=== PATIENT | female | born 1990 | race Caucasian/White ===

== ENCOUNTER 2017-02-10 11:28 | Outpatient (CLI) | payer MEDICAID ==
[~2017-02-10] VITALS: Ht 162.6 cm; Wt 68.0 kg
[~2017-02-10 11:28] MED LIST: AMOXIL500 M1 PO; AMPICILLIN500 MG PO; BACTRIM DS 8001 TAB PO; Compazine10 MG PO; DICLEGIS1 TCP PO; MACROBID 100MG100 M1 PO; MOTRIN 400MG.400 MG PO; NITROFURANTOIN100 M6 PO; NOMEDS *; NOMEDS XX; PERCOCET 5/3251 EACH PO; PRENATAL PLUS1 TA1 PO; REGLAN10 M1 PO; ZITHROMAX 250M250 MG PO; Zofran4 MG PO
[2017-02-10 11:53] VITALS: BP 117/71
== END 2017-02-10 12:20 | disposition home or self-care (01) ==
LOC: OBOUT 11:28 → OB 11:29 → OBOUT 12:20
DX: O36.8120 Decreased fetal movements, second trimester, not applicable or unspecified (principal); Z3A.24 24 weeks gestation of pregnancy

== ENCOUNTER 2017-04-24 19:10 | Outpatient (CLI) | payer MEDICAID ==
[~2017-04-24] VITALS: Ht 160 cm; Wt 69.9 kg
[2017-04-24 19:28] VITALS: BP 121/80
[2017-04-24 20:00] LABS: URINE BILIRUBIN - DIPSTICK NEGATIVE (NEG); URINE BLOOD NEGATIVE (NEG)
--- NOTE | 2017-04-24 23:14 | ACUTE CARE PROGRESS NOTE (QUA) ---
OB Progress note Subjective: 26 yo @ 34 4/7 by LMP = 6 week ultrasound in triage with complaint of vag pressure and questinable LOF. Denies vb. + irregular ctx. Had ultrasound 04/21 here which showed EFW 9% and SHERRIE 5.0; she was sent to [place] same day and had MFM ultrasound which showed EFW 23% (but AC 5%) and SHERRIE 7.8 (low normal); UA doppler 3.02-1 (normal) Recommendation was made for twice weekly testing with NST (and weekly SHERRIE) and repeat US for growth in 2 weeks. She did not receive IV hydration but was told to "drink more water and rest when you can." she does not work but is home with a 2 year old so she has not been resting; she cannot quantify the amount of fluid intake since Thursday. Objective Vital signs: Vital Signs Date Time Temp Pulse Resp B/P Pulse O2 O2 Flow FiO2 Ox Delivery Rate 04/24 1928 98.0 110 18 121/80 Contractions: infrequent (q15+ minutes) Cervical dilation: 1 (fingertip) Effaced: 50% Station: -2 Membranes are: Intact (fern/pool/amnisure negative ) monitoring? Yes Type: External Heart Rate: 150 (normal variability, reactive) Assessment Problem List: 1. contractions Additional information: No evidence of labor or rupture of membranes. reassurring status. Small for gestational age fetus 23% with AC 5% and reassurring testing (BPP 10/10, normal UA dopplers). Has f/u ultrasound for growth scheduled in 2 weeks and having NST 2x/week but no SHERRIE scheduled during interim before growth ultrasound. She will call primary OB office on thursday to set up SHERRIE for this week and was instructed to drink approximately 3L water daily. labor, ROM precautions given and kick counts advised. Plan Plan: Discharge home with plan as outlined above at [id number]
== END 2017-04-24 23:10 | disposition home or self-care (01) ==
LOC: OB 19:10 → OBOUT 19:10 → OB 19:11 → OBOUT 23:10
PROVIDERS: Obstetrics & Gynecology
DX: O26.93 Pregnancy related conditions, unspecified, third trimester (principal); Z3A.34 34 weeks gestation of pregnancy; R10.30 Lower abdominal pain, unspecified; M54.5 Low back pain

== ENCOUNTER 2017-04-29 10:49 | Observation (INO) | payer MEDICAID ==
[~2017-04-29] VITALS: Ht 162.6 cm; Wt 69.9 kg
--- OUTSIDE RECORDS SUMMARY | 2017-04-29 10:58 | External Medical Summary Rpt | CCD ---
Author Author , MICHAEL Organization MICHAEL Address Unknown Phone [email or web address] Care Team Providers Care Hide Spreader Name Role Phone A Claudia SHINE MD PSC, Pau Unavailable Unavailable Claudia SHINE MD PSC ALFARIS MOH, ALFARIS Unavailable Unavailable [facility], Unavailable Unavailable [facility] GREGORY, GREGORY Unavailable Unavailable GREGORY ALL, GREGORY ALL Unavailable Unavailable [facility] Unavailable Unavailable [facility], [facility] KOURTNEY OCONNELL Unavailable Unavailable SAENZ, SAENZ Unavailable Unavailable SAENZ DWAYNE, SAENZ Unavailable Unavailable DWAYNE SAENZ DWAYNE, SAENZ Unavailable Unavailable DWAYNE PERFECTO SAENZ J, Unavailable Unavailable HUMBERTO SAENZK J ANDREW SANTANA, Unavailable Unavailable GILBERTO SEPULVEDA Unavailable Unavailable GILBERTO MAXIMO, Unavailable Unavailable GILBERTO MAXIMO LATISHA MACIAS, Unavailable Unavailable LATISHA MACIAS [facility] Unavailable Unavailable [facility] HARISH FOSS, Unavailable Unavailable HARISH FOSS RONDAL E, Unavailable Unavailable YULY GONZALEZ HARPEL Unavailable Unavailable [facility] Unavailable Unavailable [facility], [facility] Unavailable Unavailable [facility], [facility] Unavailable Unavailable INC, [facility], Unavailable Unavailable [facility] Unavailable Unavailable [facility] Unavailable Unavailable [facility], [facility] JOHN ELIAS, Unavailable Unavailable JOHN ELIAS, Unavailable Unavailable FRANCOIS ALFRED, Unavailable Unavailable LAYA BUENO, Unavailable Unavailable LAYA LANDRY HARRY, Unavailable Unavailable ASHLEY LOJA [facility], Unavailable Unavailable [facility] Unavailable Un[facility], Un[facility] Unavailable Unavailable LAB, [facility] PICKLESIMER JR, Unavailable Unavailable PICKPERNELLIMER JR PICKPERNELLIMER JR KIMMY, Unavailable Unavailable PICKPERNELLIMER JR KIMMY RENUSCH GERSON, RENUSCH Unavailable Unavailable GERSON SADEK MOH, SADEK MOH Unavailable Unavailable MELENDEZ DON, Unavailable Unavailable MELENDEZ DON [facility], Unavailable Unavailable [facility], Unavailable Unavailable [facility] Unavailable Unavailable [facility], [facility] GISELLE SHE, Unavailable Unavailable GISELLE SHE TAMAREN, SHERRY, Unavailable Unavailable TAMAREN, SHERRY [facility] Unavailable Unavailable #[id number], [facility] # Unavailable Unavailable [id number], [facility] # [id number] [facility] # Unavailable Unavailable [id number], [facility] # [id number] [facility] Unavailable Unavailable DEPT [facility], [facility] DE[facility] Unavailable Unavailable SHINE A, SHINE A Unavailable Unavailable SHINE, A C, SHINE, Unavailable Unavailable A C Purpose Continuity of Care Document - 07-22-2007 through 2016 Problems Code Diagnosis DOS Provider Status [id number] ABNORMAL 03-13-2017 [facility] GLUCOSE PHYSICIANS COMPLICATIN GROUP G O2693 03-11-2017 [facility] CONDITIONS INC UNS 3RD TRIMESTER Z3A28 28 WEEKS 03-11-2017 [facility] OF INC Z3480 ENC 03-10-2017 [facility] SUPERVISION PHYSICIANS OTH NORMAL GROUP PREG UNS TRIMESTER [id number] DECREASED 02-10-2017 [facility] MOVEMENTS INC SECOND TRI NA/UNS Z3A24 24 WEEKS 02-10-2017 [facility] OF INC Z36 ENCOUNTER 01-09-2017 [place] [facility] ASS SCREENING OF MOTHER Z3A19 19 WEEKS 01-09-2017 [facility] MEDICAL OF IMAGING ASS O2692 12-28-2016 [facility] CONDITIONS INC UNS 2ND TRIMESTER O4702 FALSE LABOR 12-28-2016 [facility] BEFORE 37 PHYSICIANS, CMPLETE PLLC WEEKS GEST 2ND TRI O4703 FALSE LABOR 12-28-2016 [facility] BEFORE 37 PHYSICIANS CMPLETE GROUP WEEKS GEST 3RD TRI R1084 GENERALIZED 12-28-2016 [facility]OMINAL [facility] PAIN INC R197 DIARRHEA 12-28-2016 [facility] UNSPECIFIED [facility] INC Z3A17 17 WEEKS 12-28-2016 [facility]ATION [facility] OF INC Z3A18 18 WEEKS 12-28-2016 [facility] GESTATION PHYSICIANS, OF [facility] Z113 ENCOUNTER 10-29-2016 [facility] SCREEN [facility] INFECTIONS SEXL MODE TRANSMISSN Z3481 ENC 10-29-2016 [facility] SUPERVISION LLC OT NORMAL 1 TRIMESTER H80401 UTERINE 10-10-2016 [facility] SIZE-DATE [facility] DISCREPANCY INC FIRST TRIMESTER Z3491 ENC 10-10-2016 [facility] MEDICAL NORMAL IMAGING ASS UNS 1 TRIMESTER Z3A01 LESS THAN 8 10-10-2016 [facility] MEDICAL GESTATION IMAGING ASS OF Z3201 ENCOUNTER 10-02-2016 [facility] FOR PHYSICIANS GROUP TEST RESULT POSITIVE J0100 ACUTE 06-30-2016 [facility] MAXILLARY PHYSICIAN SINUSITIS GROUP UNSPECIFIED R1110 VOMITING 03-04-2016 [facility] UNSPECIFIED PHYSICIANS, [facility] E01415 PAIN IN 02-19-2016 [facility] RIGHT LEG PHYSICIANS, [facility] R2241 LOCALIZED 02-19-2016 [facility]WELLING [facility] MASS & LUMP INC RIGHT LOWER LIMB J029 ACUTE 01-10-2016 [facility] PHARYNGITIS PHYSICIANS GROUP UNSPECIFIED R05 COUGH 01-10-2016 [facility] PHYSICIANS GROUP V242 ROUTINE 11-15-2014 [facility] FOLLOW-UP V2549 SURVEILLANC 10-18-2014 [facility] E OT PREV PHYSICIANS PRSC GROUP CONTRACEPT METHOD 650 NORMAL 09-29-2014 [facility] DELIVERY PHYSICIANS GROUP 02875 FORCEPS/EXT 09-29-2014 [facility] RACTOR DEL [facility] W/O INC INDICATION- DELIVERED V270 OUTCOME OF 09-29-2014 [facility] DELIVERY [facility] SINGLE INC LIVEBORN V220 SUPERVISION 09-26-2014 [facility] OF NORMAL PHYSICIANS FIRST GROUP 3671 MYOPIA 09-09-[address] [place] [address] OTHER 09-06-2014 [facility] THREATENED [facility] LABOR, INC ANTEPARTUM 71842 POOR 09-05-2014 [facility] GROWTH MGMT PHYSICIANS MOTH GROUP ANTPRTM COND/COMP 93274 THREATENED 08-17-2014 [facility] PREMATURE PHYSICIANS LABOR GROUP ANTEPARTUM 97346 OTHER 07-28-2014 [facility] SPECIFED [facility] COMPLICATIO INC N ANTEPARTUM 44653 THREATENED 07-17-2014 [facility] PRE[facility]URE [facility] LABOR INC UNSPEC EPIS CARE 15928 ABNORMAL 07-10-2014 [facility] MATERNAL PHYSICIANS GLUCOSE GROUP TOLERANCE ANTEPARTUM 4659 ACUTE URIS 06-07-2014 [facility] UNSPECIFIED CARE SITE 47910 FEVER 06-07-2014 [facility] UNSPECIFIED [facility] CARE 02828 NAUSEA 06-07-2014 [facility] CARE V283 ENCOUNTER 06-01-2014 [facility] ROUTINE PHYSICIANS SCREEN GROUP MALFORMATIO N ULTRASONIC 48403 MIGRAINE 05-04-2014 [facility] W/AURA W/O N EMERGENCY INTRACT W/O PHYS STATUS MIGRNOSUS 88397 MIGRAINE 05-04-2014 [place] UNSP W/O MEDICAL INTRACT W/O IMAGING ASS STATUS MIGRAINOSUS 3688 OTHER 05-04-2014 [place] SPECIFIED MEDICAL VISUAL IMAGING ASS DISTURBANCE S 7804 DIZZINESS 05-04-2014 [place] AND MEDICAL GIDDINESS IMAGING ASS 29071 OTHER 05-04-2014 [place] MALAISE AND MEDICAL FATIGUE IMAGING ASS V222 05-04-2014 [facility] INCIDENTAL INC 77947 UNSPEC 04-08-2014 [place] HEMORRHAGE MEDICAL EARLY IMAGING ASS ANTEPARTUM 26643 ASYMPTOMATI 04-08-2014 [facility] C N EMERGENCY BACTERIURIA PHYS ANTEPARTUM 77844 SPOTTING 04-08-2014 [facility] COMP N EMERGENCY PHYS ANTEPARTUM COND/COMP 7907 BACTEREMIA 04-08-2014 [facility] INC V221 SUPERVISION 04-04-2014 [facility] OF OTHER LLC NORMAL V7242 04-04-2014 SAENZ DWAYNE EXAMINATION OR TEST POSITIVE RESULT V745 SCREENING 04-04-2014 [facility] EXAMINATION LLC FOR VENEREAL DISEASE 89429 THREATENED 03-30-2014 [facility] , N EMERGENCY ANTEPARTUM PHYS 99677 OT CURRENT 03-30-2014 [place] MAT CONDS MEDICAL CLASSIFIABL IMAGING ASS E ELSW ANTPRTM 79077 ABDOMINAL 03-30-2014 [place] PAIN, MEDICAL UNSPECIFIED IMAGING ASS SITE 29382 MILD 02-20-2014 [facility] HYPEREMESIS N EMERGENCY GRAVIDARUM PHYS ANTEPARTUM V2689 OTHER 02-09-2014 [facility] SPECIFIED HEALTH PROCREATIVE MANAGEMENT 1121 CANDIDIASIS 11-06-2010 A Claudia SHINE OF [facility] AND [facility] V741 SCREENING 09-23-2010 [facility] EXAM[facility] PULMONARY TUBERCULOSI S V202 ROUTINE 09-13-2010 A Claudia SHINE INFANT OR [facility] CHILD HEALTH CHECK 9409 UNSPECIFIED 02-13-2010 A Claudia SHINE BURN OF [facility] EYE AND ADNEXA V255 INSERTION 07-30-2009 [facility] IMPLANTABLE CLIN[facility] OF SUBDERMAL HAM CONTRACEPTI [facility] VE 632 MISSED 07-04-2009 [facility] 6238 OTHER 05-23-2009 [facility] SPECIFIED EMERGENCY NONINFLAMMA SERVICES [facility] DISORDER VAGINA 5990 URINARY 05-12-2009 [facility] TRACT [facility] INFECTION INC SITE NOT SPECIFIED 22933 INFECTIONS 05-11-2009 [place] OF EMERGENCY GENITOURINA SERVICES RY TRACT ASSOCIATES ANTEPARTUM 7061 OTHER ACNE 03-09-2009 [facility] V703 OTH GENERAL 09-07-2008 [facility] EXAMINATION ADMIN PURPOSES 4612 ACUTE 04-29-2008 [employer] ETHMOIDAL [employer] SINUSITIS [employer] 4619 ACUTE 04-29-2008 [facility] SINUSITIS, [facility] H[facility] UNSPECIFIED INC 7840 HEADACHE 04-29-2008 [facility] 0570 ERYTHEMA 09-20-2007 [facility] INFECTIOSUM [facility] 29863 ESOPHAGEAL 09-20-2007 [facility] REFLUX [facility] 16815 CHRONIC 08-30-2007 JADA TONSILLITIS JOHN Pineda 39672 HYPERTROPHY 08-30-2007 PATHOLOGY & OF TONSILS CYTOLOGY ALONE LAB V7284 UNSPECIFIED 08-27-2007 [facility] VE EXAMINATION 7821 RASH AND 08-22-2007 [facility] OTHER [facility] NONSPECIFIC SKIN ERUPTION 89140 CHEST PAIN 08-22-2007 [facility] UNSPECIFIED [facility] 4779 ALLERGIC 08-10-2007 JAAD RHINITIS JOHN Pineda CAUSE UNSPECIFIED 463 ACUTE 07-23-2007 ELIAS, TONSILLITIS JOHN Pineda 96301 OTHER 07-23-2007 [facility] DISEASE OF CLIN[facility] PHARYNX OR NASOPHARYNX 7856 ENLARGEMENT 07-23-2007 ELIAS, OF LYMPH JOHN Pineda NODES 0340 STREPTOCOCC 07-22-2007 [facility] AL SORE [facility] THROAT G43.109 MIGRAINE WITH AURA, NOT INTRACTABLE , W/O STATUS MIGRAINOSUS N92.0 EXCESSIVE AND FREQUENT MENSTRUATIO N WITH REGULAR CYCLE O20.0 THREATENED O21.0 MILD HYPEREMESIS GRAVIDARUM O41.03X0 Oligohydram nios, third trimester, not applicable or unspecified O47.9 FALSE LABOR, UNSPECIFIED O99.89 OT DISEASES AND CONDITIONS COMPL PREG/CHLDBR TH P05.00 light for gestational age, unspecified weight R11.10 VOMITING, UNSPECIFIED R22.9 LOCALIZED SWELLING, MASS AND LUMP, UNSPECIFIED Z33.1 STATE, INCIDENTAL Z34.90 ENCNTR FOR SUPRVSN OF NORMAL , UNSP, UNSP TRIMESTER Medications Na ND Rx Da Fi Fi Am Da Di Ph RX Ph St me C No te ll ll ou ys ag ar # ys at rm s nt no ma ic us Or Da si cy ia de te s n re d [place] 59 06 07 6. 5 00 WA Ac IT 76 -2 -2 00 00 L- ti HR 23 0- 1- 0 07 MA ve OM 06 20 20 49 RT YC 00 17 17 45 IN 1 18 PH AR 25 MA 0 CY MG #5 TA 91 BL ET TN 68 04 05 14 7 00 WA Ac OM 38 -1 -1 .0 00 L- ti ET 20 8- 9- 00 07 MA ve ESTRADA 04 20 20 48 RT ZI 00 17 17 30 NE 1 85 PH AR 12 MA .5 CY MG #5 91 TA BL ET AM 00 01 02 20 10 00 WA Ac OX 09 -0 -0 .0 00 L- ti IC 33 2- 3- 00 07 MA ve IL 10 20 20 46 RT LI 90 17 17 20 N 5 81 PH 50 AR 0 MA MG CY CA #5 PS 91 UL E AM 00 05 05 0 21 7 WA 70 ME Ac OX 78 -2 -2 .0 L- 79 AD ti IC 12 5- 5- 00 MA 89 E ve IL 61 20 20 RT 0 DM LI 30 11 11 D N 5 PH JE 50 AR WE 0 MA LL MG CY # CA PS 10 UL 04 E 93 ME 00 05 05 0 21 6 WA 70 ME Ac TH 60 -2 -2 .0 L- 79 AD ti YL 34 5- 5- 00 MA 88 E ve TN 59 20 20 RT 8 DM ED 31 11 11 D NI 5 PH JE SO AR WE LO MA LL NE CY 4 # MG 10 04 DO 93 SE PK TN 68 05 05 0 15 3 WA 70 ME Ac OM 38 -2 -2 .0 L- 79 AD ti ET 20 5- 5- 00 MA 88 E ve ESTRADA 04 20 20 RT 7 DM ZI 10 11 11 D NE 1 PH JE AR WE 25 MA LL CY MG # TA 10 BL 04 ET 93 00 05 05 0 20 3 WA 44 ME Ac 40 -2 -2 .0 L- 87 AD ti 60 5- 5- 00 MA 97 E ve 35 20 20 RT 1 DM 80 11 11 D 1 PH JE AR WE MA LL CY # 10 04 93 00 05 05 0 20 3 WA 44 ME Ac 40 -2 -2 .0 L- 87 AD ti 60 5- 5- 00 MA 97 E ve 35 20 20 RT 1 JE 80 11 11 WE 1 PH LL AR R MA CY # 10 04 93 66 04 05 1 12 6 WA 70 MO Ac 99 -2 -0 0. L- 69 SE ti 20 0- 7- 00 MA 75 S ve 22 [address] 00 10 10 EP 4 PH HE AR N MA A CY # 10 05 91 00 01 01 00 20 3 WA 44 CL Ac 40 -0 -2 .0 L- 82 AR ti 60 6- 8- 00 MA 64 KE ve 35 20 20 RT 3 70 10 10 DE 5 PH RE AR K MA J CY #5 91 AM 00 11 12 00 40 10 WA 70 GA Ac PI 78 -1 -0 .0 L- 45 IN ti CI 12 4- 3- 00 MA 79 EY ve LL 14 20 20 RT 9 IN 50 09 09 MO 1 PH CH 50 AR AE 0 MA L MG CY S CA #5 PS 91 UL E 45 09 09 00 [address] Ac 80 -1 -2 .0 L- 36 ON ti 20 1- 4- 00 MA 42 E ve 18 20 20 RT 8 DI 20 09 09 XI 2 PH E AR D MA CY #5 91 66 09 09 00 [address] Ac 99 -1 -2 .0 L- 36 ON ti 20 1- 4- 00 MA 42 E ve 23 20 20 RT 6 DI 56 09 09 XI 0 PH E AR D MA CY #5 91 TN 00 11 11 00 15 4 SO 29 GO Ac OC 78 -0 -2 .0 PE 72 BL ti HL 15 4- 0- 00 RS 71 E ve OR 02 20 20 RO PE 10 08 08 FA ND RA 1 MO AL ZI LY E NE DR 10 UG MG TA B AM 00 11 11 00 30 10 SO 29 GO Ac OX 09 -0 -2 .0 PE 72 BL ti IC 33 4- 0- 00 RS 70 E ve IL 10 20 20 RO LI 90 08 08 FA ND N 5 MO AL 50 LY E [address] UG CA PS UL E 49 03 04 00 60 30 SO 27 No Ac 88 -2 -1 .0 PE 98 t ti 40 4- 0- 00 RS 11 Av ve 54 20 20 ai 40 08 08 FA la 5 MO bl LY e DR UG AM 00 03 04 00 10 10 SO 27 No Ac OX 09 -0 -0 0. PE 77 t ti IC 34 3- 7- 00 RS 50 Av ve IL 15 20 20 0 ai LI 57 08 08 FA la N 3 MO bl 25 LY e [address] /5 UG ML MCKINLEY SP AC 00 03 04 00 20 5 SO 27 No Ac ET 12 -0 -0 0. PE 77 t ti AM 10 3- 7- 00 RS 43 Av ve IN 50 20 20 0 ai OP 41 08 08 FA la -C 6 MO bl OD LY e EI NE DR UG 12 0- 12 MG /5 AM 00 01 03 00 20 10 SO 27 No Ac OX 09 -2 -2 0. PE 38 t ti IC 34 4- 5- 00 RS 90 Av ve IL 15 20 20 0 ai LI 57 08 08 FA la N 3 MO bl 25 LY e [address] /5 UG ML MCKINLEY SP Results Labs Lab Lab Date Result Refere Interp Status Commen Order Detail nces retati t Range on Cervicovaginal discharge rapid detection (04-24-2017 20:50) Cervico NEGATIV complet vaginal 017 E FOR ed 20:50 RUPTURE dischar ge NEGATIV rapid E FOR detecti RUPTURE on L Zgyop-7-Uysudwcuirsqf.placental [Presence] in Vaginal fluid (04-24-2017 20:50) Alpha-1 NEGATIV complet -Microg 017 E FOR ed lobulin 20:50 RUPTURE .placen dana [Presen ce] in Vaginal fluid Urinalysis with microscopy (04-24-2017 19:20) Comment: Collected by nurse? Y Comment: Hold specimen in OE? N Urine 20 - 50 O complet leukocy 017 ed pattie 19:20 wbc/hpf count (number /volume ) Urine 0.2 0.2 NEG complet urobili 017 L ed nogen 19:20 E.U./dL detecti on by test str [place]ou 10-20 0-5 complet s 017 10-20 L ed epithel 19:20 #/hpf ial cells detecti on in u Urine > = 1.005-1 complet specifi 017 1.030 .030 ed c 19:20 gravity measure ment Urine 1 + NEG complet protein 017 mg/dL ed 19:20 measure ment by automat ed t Urine 2 = 6.0 5.0-8.5 complet pH 017 ed 19:20 Urine NEGATIV NEG complet nitrite 017 E ed 19:20 NEGATIV detecti E L on by test strip Mucus 1+ 1+ L NEG complet detecti 017 ed on in 19:20 urine sedimen t by lig Urine 2 1+ 1+ L NEG complet ketones 017 mg/dL ed 19:20 detecti on by automat ed pattie Glucose = NEG complet ur 017 NEGATIV ed test 19:20 E strip Urine YELLOW YELLOW complet color 017 YELLOW ed 19:20 L Urine NEGATIV NEG complet blood 017 E ed detecti 19:20 NEGATIV on E L Urine NEGATIV NEG complet total 017 E ed bilirub 19:20 NEGATIV in E L detecti on by test Urine CLOUDY CLEAR complet appeara 017 CLOUDY ed nce 19:20 L determi nation Choriogonadotropin.beta subunit ( test) [Presence] in Serum or Plasma (12-28-2016 23:00) Choriog 42883.4 complet onadotr 017 ed opin.be 23:00 ta subunit (pregna ncy test) [Presen ce] in Serum or Plasma Urinalysis dipstick W Reflex Microscopic panel in Urine (12-28-2016 23:00) Appeara SL CLEAR complet nce of 017 CLOUDY ed Urine 23:00 Bilirub NEGATIV NEG complet in 017 E ed [Presen 23:00 ce] in Urine by Test strip Erythro NEGATIV NEG complet cytes 017 E ed [Presen 23:00 ce] in Urine Color YELLOW YELLOW complet of 017 ed Urine 23:00 Ketones NEGATIV NEG complet 017 E ed [Presen 23:00 ce] in Urine by Automat ed test strip Mucus TRACE NEG Abnorma complet [Presen 017 l ed ce] in 23:00 Urine sedimen t by Light microsc opy Nitrite NEGATIV NEG complet 017 E ed [Presen 23:00 ce] in Urine by Test strip Epithel 20-50 0#/hp complet ial 017 f - ed cells.s 23:00 5#/hp quamous f [Presen ce] in Urine sedimen t by Microsc opy high power field Urobili 0.2 NEG complet nogen 017 ed [Presen 23:00 ce] in Urine by Test strip Leukocy 5-10 O complet pattie 017 wbc/hpf ed [#/volu 23:00 me] in Urine CHLAMYDIA AND GONORRHEA TESTING (12-09-2011 11:00) Chlamyd POSITIV complet ia 012 E ed trachom 11:00 atis rRNA [Presen ce] in Unspeci fied specime n by Probe & target amplifi cation method Neisser NEGATIV complet ia 012 E ed gonorrh 11:00 oeae rRNA [Presen ce] in Unspeci fied specime n by Probe & target amplifi cation method CHLAMYDIA AND GONORRHEA TESTING (12-09-2011 11:00) COLLECT NA complet OR 012 ed 11:00 ETHNICI WHITE, complet TY 012 NON-HIS ed 11:00 PANIC KIT 07/29/12 complet EXPIRAT 012 ed ION 11:00 DATE SYMPTOM NO complet S 012 ed 11:00 REASON INITIAL complet FOR 012 FAMILY ed REQUEST 11:00 PLANNIN G VISIT SPECIME FEMALE complet N 012 ENDOCER ed SOURCE 11:00 VICAL PREGNAN NO complet T 012 ed 11:00 CHART NA complet NUMBER 012 ed 11:00 Chlamyd Pending complet ia 012 ed trachom 11:00 atis rRNA [Presen ce] in Unspeci fied specime n by Probe & target amplifi cation method Neisser Pending complet ia 012 ed gonorrh 11:00 oeae rRNA [Presen ce] in Unspeci fied specime n by Probe & target amplifi cation method Procedures Procedure DOS Code Location Performer Comment GLUCOSE 48429 [facility] POST 7 PHYSICIAN GLUCOSE S GROUP DOSE THERAPEUT 01756 [facility] IC 7 [facility] PROPHYLAC INC INC TIC/DX INJECTION SUBQ/IM 29666 [facility] NONSTRESS 7 [facility] TEST INC [facility] 12[facility] 7 MEDICAL AFTER 1ST IMAGING TRIMEST ASS GESTATION COMPREHEN 68491 [facility] SIVE 7 [facility] METABOLIC INC INC PANEL GONADOTRO 54723 [facility] PIN 7 [facility] CHORIONIC INC INC QUANTITAT JOEL 19976 [facility] D[facility] NONSTRESS 7 PHYSICIAN TEST S GROUP CULTURE 73652 [facility] BACTERIAL 7 [facility] INC INC QUANTTATI VE COLONY COUNT URINE URNLS DIP 26656 [facility] 7 [facility] STICK/TAB INC INC LET REAGENT AUTO MICROSCOP Y BLOOD 55020 [facility] COUNT 7 [facility] COMPLETE INC INC AUTO&[place] [address] [facility] INFUSION 7 [facility] THERAPY/P INC INC ROPHYLAXI S /DX 1ST TO 1 HR IADNA 86762 [facility] P[facility] CHLAMYDIA 7 LLC ER JR TRACHOMAT IS AMPLIFIED PROBE TQ CYTP C/V 24785 [facility] AUTO THIN 7 LLC ER JR LYR PREPJ SCR MNL RESCR PHYS IADNA 02269 [facility] NEISSERIA 7 LLC ER JR GONORRHOE AE AMPLIFIED PROBE TQ US PREG 36512 [place] COLT UTERUS 7 MEDICAL REAL TIME IMAGING W/IMAGE ASS DCMTN TRANSVAG DRUG TEST 87484 [facility] PRSMV 7 PHYSICIAN QUAL DIR S GROUP OPTICAL OBS PER DAY URINE 68007 [facility] DANY 7 PHYSICIAN TEST S GROUP VISUAL COLOR CMPRSN METHS RADIOLOGI 34054 [place] GREGORY ALL C 6 MEDICAL EXAMINATI IMAGING ON TIBIA ASS & FIBULA 2 VIEWS IAADIADOO 74429 [facility] ANDREW 6 PHYSICIAN SANTANA STREPTOCO S GROUP CCUS GROUP A CYTP C/V 92366 [facility], P[facility]LES[facility] AUTO THIN 5 LLC ER JR KIMMY LYR PREPJ SCR MNL RESCR PHYS THERAPEUT 76554 [facility] D[facility] IC 5 PHYSICIAN DWAYNE PROPHYLAC S GROUP TIC/DX INJECTION SUBQ/IM NEURAXIAL 54356 [facility] 5 ANESTH SHE ANALG/ANE OF THE S PLND BLUE VAGINAL DELIVERY VAGINAL 71727 [facility] DELIVERY 5 PHYSICIAN DWAYNE ONLY S GROUP W/POSTPAR REG CARE OTHER 7279 [facility] VACUUM 5 [facility] EXTRACTIO INC INC N OPHTH 25464 [facility] [place] [facility]ICAL 5 GRE GRE XM&EVAL COMPRHNSV ESTAB PT 1/> RX&FITG 88115 [facility] VALLEJOALL C-LENS 5 GRE GRE SUPVJ CRNL LENS OU XCPT APHK THERAPEUT 38543 [facility] IC 5 [facility] PROPHYLAC INC INC TIC/DX INJECTION SUBQ/IM PARTICLE 80475 [facility] AGGLUTINA 5 [facility] TION INC INC SCREEN EACH ANTIBODY 16983 [facility] NONSTRESS 5 [facility] TEST INC INC DOPPLER 33446 [facility] DANY VELOCIMET 5 PHYSICIAN DWAYNE RY S GROUP UMBILICAL ARTERY 39520 [facility] D[facility] BIOPHYSIC 5 PHYSICIAN DWAYNE AL S GROUP PROFILE W/O NON-STRES S TESTING US PREG 77854 [facility] UTERUS 5 PHYSICIAN DWAYNE REAL TIME S GROUP F/U TRNSABDL PER FETUS US PREG 37821 [facility] UTERUS 5 PHYSICIAN DWAYNE REAL TIME S GROUP W/IMAGE DCMTN TRANSVAG US PREG 84981 [facility] UTERUS 5 PHYSICIAN DWAYNE REAL TIME S GROUP W/IMAGE DCMTN TRANSVAG 15428 [facility] D[facility] BIOPHYSIC 5 PHYSICIAN DWAYNE AL S GROUP PROFILE NON-STRES S TESTING EVAL C/V 17176 [facility] AMNIOTIC 5 [facility] FLUID INC INC PROTEIN QUAL EA SPECIMEN 50565 [facility] SAENZ NONSTRESS 5 PHYSICIAN DWAYNE TEST S GROUP URNLS DIP 21511 [facility] 5 [facility] STICK/TAB INC INC LET REAGENT AUTO MICROSCOP Y FTL 43242 [facility] FIBRONECT 5 [facility] IN INC INC CERVICOVA G SECRETION S SEMI-DIANELYS US PREG 16070 [facility] UTERUS 5 PHYSICIAN DW[place] REAL TIME S GROUP F/U TRNSABDL PER FETUS DOPPLER 57795 [facility] VELOCIMET 5 PHYSICIAN [place] RY S GROUP UMBILICAL ARTERY 75127 [facility] BIOPHYSIC 5 PHYSICIAN [place] AL S GROUP PROFILE W/O NON-STRES S TESTING THERAPEUT 93850 [facility] IC [facility] PROPHYLAC INC INC TIC/DX INJECTION SUBQ/IM 68900 [facility] NONSTRESS 5 PHYSICIAN [place] TEST S GROUP FTL 16155 [facility] FIBRONECT 5 [facility] IN INC INC CERVICOVA G SECRETION S SEMI-DIANELYS URNLS DIP 54890 [facility] STICK/TAB INC INC LET REAGENT AUTO MICROSCOP Y GLUCOSE 69436 [facility] POST 5 PHYSICIAN PHYSICIAN GLUCOSE S GROUP S GROUP DOSE 53900 [facility] NONSTRESS 5 PHYSICIAN [place] TEST S GROUP 33572 [facility] NONSTRESS 5 PHYSICIAN [place] TEST S GROUP 56966 [facility] NONSTRESS 4 [facility] TEST INC INC THERAPEUT 99843 [facility] IC 4 [facility] PROPHYLAC INC INC TIC/DX INJECTION SUBQ/IM URNLS DIP 79569 [facility] STICK/TAB INC INC LET REAGENT AUTO MICROSCOP Y FTL 95962 [facility] FIBRONECT 4 [facility] IN INC INC CERVICOVA G SECRETION S [facility] 87876 [facility] DISCHARGE 4 PHYSICIAN [place] DAY S GROUP MANAGEMEN T 30 MIN/< SBSQ 27482 [facility] 4 PHYSICIAN [place] CARE/DAY S GROUP 15 MINUTES INITIAL 87769 [facility] 4 PHYSICIAN [place] CARE/DAY S GROUP 50 MINUTES IAADIADOO 07787 [facility] 4 EXPRESS DON INFLUENZA CARE US PREG 12759 [facility] UTERUS 4 PHYSICIAN [place] AFTER 1ST S GROUP TRIMEST GESTATION MRI BRAIN 06793 [facility] BRAIN 4 MEDICAL MAXIMO STEM W/O IMAGING CONTRAST ASS MATERIAL THERAPEUT 10534 [facility] IC [facility] INJECTION INC [place] [address] [facility] INFUSION 4 [facility] THERAPY/P INC INC ROPHYLAXI S /DX 1ST TO 1 HR URNLS DIP 26946 [facility] STICK/TAB INC INC LET REAGENT AUTO MICROSCOP Y BLOOD 64075 [facility] COUNT 4 [facility] COMPLETE INC INC AUTO&AUTO DIFRNTL WBC GONADOTRO 02795 [facility] PIN 4 [facility] CHORIONIC INC INC QUANTITAT JOEL COMPREHEN 31325 [facility] SIVE 4 [facility] METABOLIC INC INC PANEL US PREG 31799 PALOMA MACIAS UTERUS 4 MEDICAL MAXIMO REAL TIME IMAGING W/IMAGE ASS DCMTN TRANSVAG CYTP C/V 75638 [facility] AUTO THIN [facility] ER JR KIMMY LYR PREPJ SCR MNL RESCR PHYS IADNA 02691 [facility], [facility] CHLAMYDIA [facility] ER JR KIMMY TRACHOMAT IS AMPLIFIED PROBE TQ IADNA 14627 [facility], [facility] NEISSERIA 4 [facility] ER JR KIMMY GONORRHOE AE AMPLIFIED PROBE TQ URINE 25890 DANY SAENZ 4 DWAYNE DWAYNE TEST VISUAL COLOR CMPRSN METHS BLOOD 28429 [facility] COUNT 4 [facility] COMPLETE INC INC AUTO&AUTO DIFRNTL WBC GONADOTRO 61672 [facility] PIN 4 [facility] CHORIONIC INC INC QUANTITAT JOEL COMPREHEN 09067 [facility] SIVE 4 [facility] METABOLIC INC INC PANEL SMR PRIM 85069 [facility] SRC WET 4 [facility] MOUNT INC INC NFCT AGT TISS HEMAL 52689 [facility] SLIDE 4 [facility] SAMPS INC INC SKN/HR/NL S FNGI/ECTO PARASIT US PREG 64624 PALOMA MACIAS UTERUS 4 MEDICAL MAXIMO REAL TIME IMAGING W/[place] [address] [facility] TRANSVAGI 4 [facility] NAL INC INC COMPREHEN 88749 [facility] SIVE 4 [facility] METABOLIC INC INC PANEL GONADOTRO 71857 [facility] PIN 4 [facility] CHORIONIC INC INC QUANTITAT JOEL BLOOD 17897 [facility] COUNT 4 [facility] COMPLETE INC INC AUTO&AUTO DIFRNTL WBC URNLS DIP 99690 [facility] STICK/TAB INC [place] [address] [facility] INFUSION 4 [facility] THERAPY/P INC INC ROPHYLAXI S /DX 1ST TO 1 HR THERAPEUT 98281 [facility] IC 4 [facility] INJECTION INC INC IV PUSH EACH NEW DRUG URINE 47333 [facility] TEST TH DEPT VISUAL MADINA COLOR CMPRSN METHS SKIN TEST 62904 [facility] 1 [facility] C[facility] SIS INTRADERM AL INSERTION 31513 [facility], 0 [facility] IM[facility] [place] TIVE PLLC CAPSULES URINE 37802 [facility], 0 [facility] J TEST CLINIC OF VISUAL COLOR [place] CMPRSN PLLC METHS ETONOGEST J7307 WOMEN'S SAENZ, REL 0 HEALTH PERFECTO [facility] OF IMPL SYS INCL IMPL [place] & SPL PLLC ASPIRATIO 6952 [facility] N 0 [facility] CURETTAGE INC INC FOLLOWING DELIVERY/ BLOOD 04677 [facility] COUNT 0 [facility] COMPLETE INC INC AUTO&[place] [address] [facility] INFUSION 0 [facility] THERAPY/P INC INC ROPHYLAXI S /DX 1ST TO 1 [place] [address] PATHOLOGY PATHOLOGY SURG 0 & & PATHOLOGY CYTOLOGY CYTOLOGY LAB LAB GROSS&DRAKE ROSCOPIC EXAM US PREG 05938 PALOMA GILBERTO, UTERUS 0 MEDICAL LATISHA REAL TIME IMAGING W/IMAGE ASSOCIATE DCMTN S TRANSVAG [place] MISSED 31146 [facility]OM[facility] SAEN[facility], 0 HEALTH PERFECTO [facility] SURGICAL [place] PLLC BLOOD 97385 [facility] TYPING 0 [facility] SEROLOGIC INC INC RH (D) US PREG 59454 [facility] GILBERTO, UTERUS 9 MEDICAL LATISHA REAL TIME IMAGING W/IMAGE ASSOCIATE DCMTN S TRANSVAG GONADOTRO 57624 [facility] PIN 9 [facility] CHORIONIC INC INC QUANTITAT JOEL BLOOD 75348 [facility] COUNT 9 [facility] COMPLETE INC INC AUTO&AUTO DIFRNTL WBC TB CELL 93756 A C FÁTIMA, A MEDIATED Earle Taylor ANTIGN PSC RESPNSE GAMMA INTERFERO N URNLS DIP 91076 [facility] 9 [facility] STICK/TAB INC INC LET REAGENT AUTO MICROSCOP Y BLOOD 84554 [facility] COUNT 9 [facility] COMPLETE INC INC AUTO&AUTO DIFRNTL WBC GONADOTRO 07854 [facility] PIN 9 [facility] CHORIONIC INC INC QUANTITAT JOEL US PREG 72668 PALOMA GRIS, UTERUS 9 MEDICAL LAYA P REAL TIME IMAGING W/IMAGE ASSOCIATE DCMTN S TRANSVAG CULTURE 74193 [facility] BACTERIAL 9 [facility] INC INC QUANTTATI VE COLONY COUNT URINE URINE 48230 [facility] 9 [facility] TEST INC [place] [address] [facility] HEAD/BRAI 8 [facility] N W/O INC INC CONTRAST MATERIAL 3D 73555 [facility] RENDERING [address] [facility] HOSP W/INTERP INC INC & POSTPROCE SS SUPERVISI ON TONSILLEC 95923 [place] T[place] 8 [facility] ECONDARY AGE 12/> ANESTHESI 52446 Pau GONZALEZ 8 ANESTHESI ASHLEY INTRAORAL A GROUP WITH PSC BIOPSY NOS LEVEL III 58885 PATHOLOGY PATHOLOGY SURG 8 & & PATHOLOGY CYTOLOGY CYTOLOGY LAB LAB GROSS&DRAKE ROSCOPIC EXAM COLLECTIO 77236 VERÓNICA EDGARON N VENOUS 8 [facility] VENIPUNCT URE GONADOTRO 57928 [facility] PIN 8 [facility] QUALITATI VE BLOOD 69776 [facility] COUNT 8 [facility] N BLOOD 70476 [facility] COUNT 8 [facility] T INJECTION J0696 KODI DAY, Carmen [facility] CEFTRIAXO PSC NE SODIUM PER 250 MG INJECTION J1100 Carmen [facility] DEXAMETHO PSC SONE SODIUM PHOSPHATE 1 MG IAADIADOO 47170 KODI DAY, 8 [facility]IN[facility] STREPTOCO PSC CCUS GROUP A Encounters Encounter Start End Date Code Location Performer Type Date [facility] - 7 7 [facility] OUTPATIEN INC T OFFICE 58246 [facility] DAYN HOWE 7 7 PHYSICIAN T VISIT S GROUP 15 MINUTES OFFICE 75225 [facility] T VISIT S GROUP 15 MINUTES HOSPITAL [facility] - 7 7 [facility] OUTPATIEN INC T OFFICE 37092 [facility] SAENZ OUTPATIEN 7 7 PHYSICIAN T VISIT S GROUP 15 MINUTES HOSPITAL [facility] - 7 7 [facility] OUTPATIEN INC T EMERGENCY 39161 IGNACIO KUMAR DEPT 7 7 PHYSICIAN U VISIT S, [facility] HIGH SEVERITY& THREAT FUNJ OFFICE 21518 [facility] SAENZ OUTPATIEN 7 7 PHYSICIAN T VISIT S GROUP 15 MINUTES OFFICE 94315 [facility] SAENZ OUTPATIEN 7 7 PHYSICIAN T VISIT S GROUP 15 MINUTES OFFICE 92979 [facility] SAENZ OUTPATIEN 7 7 PHYSICIAN T VISIT S GROUP 15 MINUTES HOSPITAL [facility] - 7 7 [facility] OUTPATIEN INC T OFFICE 01728 [facility] SAENZ OUTPATIEN 7 7 PHYSICIAN T VISIT S GROUP 25 MINUTES OFFICE 66456 [facility] KOURTNEY OUTPATIEN 7 7 PHYSICIAN T VISIT GROUP 25 MINUTES HOSPITAL [facility] - 6 6 [facility] OUTPATIEN INC T EMERGENCY 42151 IGNACIO MONAE [facility] 6 6 PHYSICIAN DEPARTMEN S, [facility] T VISIT MODERATE SEVERITY EMERGENCY 56031 [facility] 6 6 [facility] DEPARTMEN INC T VISIT LOW/MODER SEVERITY EMERGENCY 21346 IGNACIO DIAZ 6 6 PHYSICIAN GERSON DEPARTMEN S, [facility] T VISIT MODERATE SEVERITY HOSPITAL [facility] - 6 6 [facility] OUTPATIEN INC T EMERGENCY 72350 [facility] 6 6 [facility] DEPARTMEN INC T VISIT LOW/MODER SEVERITY OFFICE 72839 [facility] ANDREW OUTPATIEN 6 6 PHYSICIAN SANTANA T VISIT S GROUP 15 MINUTES HOSPITAL [facility] - 5 5 [facility] INPATIENT INC OFFICE 07026 [facility] SAENZ OUTPATIEN 5 5 PHYSICIAN DWAYNE T VISIT S GROUP 15 MINUTES OFFICE 69696 [facility] SAENZ OUTPATIEN 5 5 PHYSICIAN DWAYNE T VISIT S GROUP 15 MINUTES OFFICE 06756 [facility] SAENZ OUTPATIEN 5 5 PHYSICIAN DWAYNE T VISIT S GROUP 15 MINUTES HOSPITAL [facility] - 5 5 [facility] OUTPATIEN INC T OFFICE 09276 [facility] SAENZ OUTPATIEN 5 5 PHYSICIAN DWAYNE T VISIT S GROUP 15 MINUTES OFFICE 01985 [facility] SAENZ OUTPATIEN 5 5 PHYSICIAN DWAYNE T VISIT S GROUP 15 MINUTES OFFICE 28491 [facility] SAENZ OUTPATIEN 5 5 PHYSICIAN DWAYNE T VISIT S GROUP 15 MINUTES OFFICE 92100 [facility] SAENZ OUTPATIEN 5 5 PHYSICIAN DWAYNE T VISIT S GROUP 15 MINUTES HOSPITAL [facility] - 5 5 [facility] OUTPATIEN INC T OFFICE 21462 [facility] SAENZ OUTPATIEN 5 5 PHYSICIAN DWAYNE T VISIT S GROUP 15 MINUTES OFFICE 69833 [facility] SAENZ OUTPATIEN 5 5 PHYSICIAN DWAYNE T VISIT S GROUP 15 MINUTES HOSPITAL [facility] - 5 5 [facility] OUTPATIEN INC T OFFICE 93160 [facility] SAENZ OUTPATIEN 5 5 PHYSICIAN DWAYNE T VISIT S GROUP 15 MINUTES OFFICE 55717 RENE MILLAN OUTPATIEN 5 5 YANA KULKARNI RODRIGUE T VISIT 15 MINUTES HOSPITAL [facility] - 4 4 [facility] OUTPATIEN INC T HOSPITAL [facility] - 4 4 [facility] INPATIENT INC OFFICE 80196 [facility] SAENZ OUTPATIEN 4 4 PHYSICIAN DWAYNE T VISIT S GROUP 15 MINUTES OFFICE 41269 DRUZERick MELENDEZ OUTPATIEN 4 4 EXPRESS DON T NEW 30 CARE MINUTES OFFICE 61078 [facility] DANY OHWE 4 4 PHYSICIAN DWAYNE T VISIT S GROUP 15 MINUTES HOSPITAL [facility] - 4 4 [facility] OUTPATIEN INC T EMERGENCY 88504 [facility] DEPT 4 4 RENU VISIT EMERGENCY HIGH PHYS SEVERITY& THREAT FUNCJ OFFICE 41112 [facility] DANY FREYEN 4 4 PHYSICIAN DWAYNE T VISIT S GROUP 15 MIN[address] [facility]Y [address] MOH VISIT EMERGENCY HIGH PHYS SEVERITY& THREAT FUNCJ EMERGENCY 09895 [facility] 4 4 [facility] DEPARTMEN INC T VISIT MODERATE SEVERITY HOSPITAL [facility] - 4 4 [facility] OUTPATIEN INC T OFFICE 94554 DANY HOWE 4 4 DWAYNE DWAYNE T VISIT 25 MINUTES HOSPITAL [facility] - 4 4 [facility] OUTPATIEN INC T EMERGENCY 84475 [facility] 4 4 [facility] DEPARTMEN INC T VISIT MODERATE SEVERITY EMERGENCY 99114 [facility] 4 4 RENU DEPARTMEN EMERGENCY T VISIT PHYS HIGH/URGE NT SEVERITY HOSPITAL [facility] - 4 4 [facility] OUTPATIEN INC T EMERGENCY 50582 [facility] 4 4 [facility] DEPARTMEN INC T VISIT HIGH/URGE NT SEVERITY EMERGENCY 42657 [facility] DEPT 4 4 RENU VISIT EMERGENCY HIGH PHYS SEVERITY& THREAT FUNCJ OFFICE 44464 [facility] 4 4 [facility] T VISIT [facility] DEPT 10 MADINA MINUTES OFFICE 62069 Pau Mai OUTPATIEN 1 1 ÁFTIMA KULKARNI T VISIT PSC 10 MINUTES OFFICE 60534 [facility] OUTMICHELLEEN 1 1 [facility] MINUTES OFFICE 14900 [facility] OUTPATIEN 1 1 [facility] 10 MINUTES PERIODIC 01570 Pau Mai PREVENTIV 1 1 FÁTIMA KULKARNI E MED EST PSC PATIENT -17YRS OFFICE 78451 Pau Mai OUTPATIEN 0 0 FÁTIMA KULKARNI T VISIT PSC 15 MINUTES OFFICE 92309 Pau CANALES OUTPATIEN 0 0 FÁTIMA Taylor T VISIT PSC 15 MINUTES PERIODIC 67760 Pau CANALES PREVENTIV 0 0 FÁTIMA Taylor E MED EST PSC PATIENT HOSPITAL [facility] - 0 0 [facility] OUTPATIEN INC T EMERGENCY 30973 FRANCOIS FOSS, DEPT 0 0 EMERGENCY HARISH S VISIT SERVICES HIGH SEVERITY& ASSOCIATE THREAT S [facility] GEETA - 9 9 [facility] OUTPATIEN INC T EMERGENCY 95600 [facility] 9 9 [facility] DEPARTMEN INC T VISIT MODERATE SEVERITY EMERGENCY 17490 [facility] FOSS DEPT 9 9 EMERGENCY HARISH S VISIT SERVICES HIGH SEVERITY& ASSOCIATE THREAT S [facility] OFFICE 35791 Pau CANALES OUTPATIEN 9 9 FÁTIMA Taylor T NEW 30 PSC MINUTES EMERGENCY 98224 [facility] 9 9 [facility] DEPARTMEN INC T VISIT HIGH/URGE NT SEVERITY HOSPITAL [facility] - 9 9 [facility] OUTPATIEN INC T EMERGENCY 84068 FRANCOIS FOSS, SILVIAT 9 9 EMERGENCY HARISH S VISIT SERVICES HIGH SEVERITY& ASSOCIATE THREAT S [facility] OFFICE 49193 CARLEY CLARKE 9 9 CLINIC SHERRY T VISIT PSC 15 MINUTES PERIODIC 57554 EMILI CLARKE 9 9 CLINIC SHERRY E MED EST PSC PATIENT 12-17YRS EMERGENCY 56241 NANCY GONZALEZ, 8 8 [facility] T VISIT ON HIGH/URGE NT SEVERITY EMERGENCY 57709 [facility] 8 8 [facility] INC T VISIT MODERATE SEVERITY HOSPITAL [facility] - 8 8 [facility] OUTPATIEN [facility] T EMERGENCY 71554 YANCI 8 8 [facility] T VISIT LIMITED/M INOR [facility] H[facility]PITAL YANCI - 8 8 [facility] VERÓNICA - 8 8 [facility] EMERGENCY 58715 KODI DAY, 8 8 CLINIC [facility] T VISIT LOW/MODER SEVERITY OFFICE 52689 JADA ELIAS OUTPATIEN 8 8 JOHN Pineda T VISIT 15 MINUTES OFFICE 50774 JADA ELIAS OUTPATIEN 8 8 JOHN Pineda T NEW 30 MINUTES OFFICE 13089 CARLEY CLARKE 8 8 CLINIC SHERRY T VISIT PSC 15 MINUTES OFFICE 08310 CARLEY CLARKE 8 8 CLINIC SHERRY T VISIT PSC 15 MINUTES
--- OUTSIDE RECORDS SUMMARY | 2017-04-29 10:58 | External Medical Summary Rpt | CCD ---
Author Author , MICHAEL Organization MICHAEL Address Unknown Phone .Jiglu Care Team Providers Care Registered Nurse Hh Case Manager Name Role Phone A Claudia SHINE MD PSC, Pau Unavailable Unavailable Claudia SHINE MD PSC ALFARIS MOH, ALFARIS Unavailable Unavailable [facility], Unavailable Unavailable [facility] GREGORY, GREGORY Unavailable Unavailable GREGORY ALL, GREGORY ALL Unavailable Unavailable [facility] Unavailable Unavailable [facility], [facility] KOURTNEY OCONNELL Unavailable Unavailable SAENZ, SAENZ [...] Unavailable YULY GONZALEZ HARPEL Unavailable Unavailable [facility] Unavailable Unavailable BENZONIA, [facility] Unavailable Unavailable BENZONIA, [facility] Unavailable Unavailable INC, [facility], Unavailable Unavailable [facility], [facility]available Unavailable [facility] Unavailable Unavailable [facility], [facility] JOHN ELIAS, Unavailable Unavailable JOHN ELIAS, Unavailable Unavailable FRANCOIS ALFRED, Unavailable Unavailable LAYA BUENO, Unavailable Unavailable LAYA LANDRY HARRY, Unavailable Unavailable ASHLEY LOJA [facility], Unavailable Unavailable [facility] Unavailable Unavailable LABS, [...] Unavailable [facility], [facility]available [facility]available [facility] Unavailable Unavailable EMER[facility]Y [facility], [facility] GISELLE SHE, Unavailable Unavailable GISELLE SHE TAMAREN, SHERRY, Unavailable Unavailable TAMAREN, SHERRY [facility] Unavailable Unavailable #[id number], [facility] # Unavailable Unavailable [id number], [facility] # [id number] [facility] # Unavailable Unavailable [id number], [facility] # [id number] [facility] Unavailable Unavailable DEPT [facility] DEPT [facility] Unavailable Unavailable SHINE A, SHINE A Unavailable Unavailable SHINE, A C, SHINE, Unavailable Unavailable A C Purpose Continuity of Care Document - 07-22-2007 through 2016 Problems Code Diagnosis DOS Provider Status [id number] ABNORMAL 03-13-2017 [facility] GLUCOSE PHYSICIANS COMPLICATIN GROUP G O2693 03-11-2017 [facility] CONDITIONS INC UNS 3RD TRIMESTER Z3A28 28 WEEKS 03-11-2017 [facility] GESTATION [facility] OF INC Z3480 ENC 03-10-2017 [facility] SUPERVISION PHYSICIANS OTH NORMAL GROUP PREG UNS TRIMESTER [id number] DECREASED 02-10-2017 [facility] MOVEMENTS INC SECOND TRI NA/UNS Z3A24 24 WEEKS 02-10-2017 [facility] OF INC Z36 ENCOUNTER 01-09-2017 [facility] SCREENING OF MOTHER Z3A19 19 WEEKS 01-09-2017 [facility] MEDICAL OF IMAGING ASS O2692 12-28-2016 [facility] CONDITIONS INC UNS 2ND TRIMESTER O4702 FALSE LABOR 12-28-2016 [facility] BEFORE 37 PHYSICIANS, CMPLETE PLLC WEEKS GEST 2ND TRI O4703 FALSE LABOR 12-28-2016 [facility] BEFORE 37 PHYSICIANS CMPLETE GROUP WEEKS GEST 3RD TRI R1084 GENERALIZED 12-28-2016 [facility]BDOMINAL [facility] PAIN INC R197 DIARRHEA 12-28-2016 [facility] UNSPECIFIED [facility] INC Z3A17 17 WEEKS 12-28-2016 [facility] GESTATION [facility] OF INC Z3A18 18 WEEKS 12-28-2016 [facility] GESTATION PHYSICIANS, OF [facility] Z113 ENCOUNTER 10-29-2016 [facility] S[facility]EN [facility] INFECTIONS SEXL MODE TRANSMISSN Z3481 ENC 10-29-2016 [facility] SUPERVISION LLC OT NORMAL 1 TRIMESTER P90998 UTERINE 10-10-2016 [facility] SIZE-DATE [facility] DISCREPANCY INC FIRST TRIMESTER Z3491 ENC 10-10-2016 [facility] MEDICAL NORMAL IMAGING ASS UNS 1 TRIMESTER Z3A01 LESS THAN 8 10-10-2016 [facility] MEDICAL GESTATION IMAGING ASS OF Z3201 ENCOUNTER 10-02-2016 [facility] FOR PHYSICIANS GROUP TEST RESULT POSITIVE J0100 ACUTE 06-30-2016 [facility] MAXILLARY PHYSICIAN SINUSITIS GROUP UNSPECIFIED R1110 VOMITING 03-04-2016 [facility] UNSPECIFIED PHYSICIANS, [facility] M48615 PAIN IN 02-19-2016 [facility] RIGHT LEG PHYSICIANS, [facility] R2241 LOCALIZED 02-19-2016 [facility] SWELLING [facility] MASS & LUMP INC RIGHT LOWER LIMB J029 ACUTE 01-10-2016 [facility] PHARYNGITIS PHYSICIANS GROUP UNSPECIFIED R05 COUGH 01-10-2016 [facility] PHYSICIANS GROUP V242 ROUTINE 11-15-2014 [facility] FOLLOW-UP V2549 SURVEILLANC 10-18-2014 [facility] E OT PREV PHYSICIANS PRSC GROUP CONTRACEPT METHOD 650 NORMAL 09-29-2014 [facility] DELIVERY PHYSICIANS GROUP 83051 FORCEPS/EXT 09-29-2014 [facility] RACTOR DEL [facility] W/O INC INDICATION- DELIVERED V270 OUTCOME OF 09-29-2014 [facility] DELIVERY [facility] SINGLE INC LIVEBORN V220 SUPERVISION 09-26-2014 [facility] OF NORMAL PHYSICIANS FIRST GROUP 3671 MYOPIA 09-09-2014 [facility] [place] 98709 OTHER 09-06-2014 [facility] THREATENED [facility] LABOR, INC ANTEPARTUM 64619 POOR 09-05-2014 [facility] GROWTH MGMT PHYSICIANS MOTH GROUP ANTPRTM COND/COMP 47233 THREATENED 08-17-2014 [facility] PREMATURE PHYSICIANS LABOR GROUP ANTEPARTUM 23267 OTHER 07-28-2014 [facility] SPECIFED [facility] COMPLICATIO INC N ANTEPARTUM 86848 THREATENED 07-17-2014 [facility] PREMATURE [facility] LABOR INC UNSPEC EPIS CARE 92983 ABNORMAL 07-10-2014 [facility] MATERNAL PHYSICIANS GLUCOSE GROUP TOLERANCE ANTEPARTUM 4659 ACUTE URIS 06-07-2014 REL[facility] OF EXPRESS UNSPECIFIED CARE SITE 31291 FEVER 06-07-2014 [facility] UNSPECIFIED EXPRESS CARE 38183 NAUSEA 06-07-2014 [facility] ALONE EXPRESS CARE V283 ENCOUNTER 06-01-2014 [facility] ROUTINE PHYSICIANS SCREEN GROUP MALFORMATIO N ULTRASONIC 88884 MIGRAINE 05-04-2014 [facility] W/AURA W/O N EMERGENCY INTRACT W/O PHYS STATUS MIGRNOSUS 57401 MIGRAINE 05-04-2014 [facility] W/O MEDICAL INTRACT W/O IMAGING ASS STATUS MIGRAINOSUS 3688 OTHER 05-04-2014 [facility] SPECIFIED MEDICAL VISUAL IMAGING ASS DISTURBANCE S 7804 DIZZINESS 05-04-2014 [facility] GIDDINESS [facility] 77274 OTHER 05-04-2014 [facility] MALAISE [facility] FATIGUE IMAGING ASS V222 05-04-2014 [facility] INCIDENTAL INC 65997 UNSPEC 04-08-2014 [facility] HEMORRHAGE MEDICAL EARLY IMAGING ASS ANTEPARTUM 36383 ASYMPTOMATI 04-08-2014 [facility] C N EMERGENCY BACTERIURIA PHYS ANTEPARTUM 83377 SPOTTING 04-08-2014 [facility] COMP N EMERGENCY PHYS ANTEPARTUM COND/COMP 7907 BACTEREMIA 04-08-2014 [facility] INC V221 SUPERVISION 04-04-2014 [facility] OF OTHER LLC NORMAL V7242 04-04-2014 SAENZ DWAYNE EXAMINATION OR TEST POSITIVE RESULT V745 SCREENING 04-04-2014 [facility] EXAMINATION LLC FOR VENEREAL DISEASE 51458 THREATENED 03-30-2014 [facility] , N EMERGENCY ANTEPARTUM PHYS 88707 OT CURRENT 03-30-2014 [facility] MAT CONDS MEDICAL CLASSIFIABL IMAGING ASS E ELSW ANTPRTM 82691 ABDOMINAL 03-30-2014 [facility] PAIN, MEDICAL UNSPECIFIED IMAGING ASS SITE 31538 MILD 02-20-2014 [facility] HYPEREMESIS N EMERGENCY GRAVIDARUM PHYS ANTEPARTUM V2689 OTHER 02-09-2014 [facility] SPECIFIED HEALTH PROCREATIVE MANAGEMENT 1121 CANDIDIASIS 11-06-2010 A Claudia SHINE OF [facility] AND VAG[facility] V741 SCREENING 09-23-2010 [facility] EXAMINATION HEALTH FOR BENZONIA PULMONARY TUBERCULOSI S V202 ROUTINE 09-13-2010 A Claudia SHINE INFANT OR [facility] CHILD HEALTH CHECK 9409 UNSPECIFIED 02-13-2010 A Claudia SHINE BURN OF [facility] EYE AND ADNEXA V255 INSERTION 07-30-2009 [facility] IMPL[facility] OF SUBDERMAL HAM CONTRACEPTI [facility] VE 632 MISSED 07-04-2009 [facility] 6238 OTHER 05-23-2009 [facility] SPECIFIED EMERGENCY NONINFLAMMA SERVICES TORY ASSOCIATES DISORDER VAGINA 5990 URINARY 05-12-2009 [facility] TRACT [facility] INFECTION INC SITE NOT SPECIFIED 22394 INFECTIONS 05-11-2009 [facility] OF EMERGENCY GENITOURINA SERVICES RY TRACT ASSOCIATES ANTEPARTUM 7061 OTHER ACNE 03-09-2009 [facility] V703 OTH GENERAL 09-07-2008 [facility] EXAMINATION ADMIN PURPOSES 4612 ACUTE 04-29-2008 [facility] ETHMOIDAL Medx[facility] SINUSITIS [facility] [facility] 4619 ACUTE 04-29-2008 [facility] SINUSITIS, [facility] UNSPECIFIED INC 7840 HEADACHE 04-29-2008 [facility] 0570 ERYTHEMA 09-20-2007 [facility] INFECTIOSUM [facility] 56646 ESOPHAGEAL 09-20-2007 [facility] REFLUX [facility] 63400 CHRONIC 08-30-2007 JADA TONSILLITIS JOHN Pineda 26191 HYPERTROPHY 08-30-2007 PATHOLOGY & OF TONSILS CYTOLOGY ALONE LAB V7284 UNSPECIFIED 08-27-2007 [facility] EXAMINATION 7821 RASH AND 08-22-2007 [facility] OTHER [facility] NONSPECIFIC SKIN ERUPTION 63572 CHEST PAIN 08-22-2007 [facility] UNSPECIFIED [facility] 4779 ALLERGIC 08-10-2007 JADA RHINITIS JOHN Pineda CAUSE UNSPECIFIED 463 ACUTE 07-23-2007 ELIAS, TONSILLITIS JOHN Pineda 64473 OTHER 07-23-2007 [facility] DISEASE OF [facility] PHARYNX OR NASOPHARYNX 7856 ENLARGEMENT 07-23-2007 ELIAS, OF LYMPH JOHN Pineda NODES 0340 STREPTOCOCC 07-22-2007 [facility] AL SORE [facility] THROAT G43.109 MIGRAINE WITH AURA, NOT [...] CY MG #5 TA 91 BL ET IA 68 04 05 14 7 00 WA [...] 5- 5- 00 MA 88 E ve IA 59 20 20 RT 8 DM ED 31 11 11 D NI 5 PH JE SO AR WE LO MA LL NE CY 4 # MG 10 04 DO 93 SE PK IA 68 05 05 0 15 3 WA [...] 20 RT 9 IN 50 09 09 WY 1 PH CH 50 AR AE 0 [...] E AR D MA CY #5 91 IA 00 11 11 00 15 4 SO 29 GO Ac OC 78 -0 -2 .0 PE 72 BL ti HL 15 4- 0- 00 RS 71 E ve OR 02 20 20 RO PE 10 08 08 FA ND RA 1 WY AL ZI LY E NE DR 10 UG MG TA B AM 00 11 11 00 30 10 SO 29 GO Ac OX 09 -0 -2 .0 PE 72 BL ti IC 33 4- 0- 00 RS 70 E ve IL 10 20 20 RO LI 90 08 08 FA ND N 5 WY AL 50 LY E [address] UG CA PS UL E 49 03 04 00 60 30 SO 27 No Ac 88 -2 -1 .0 PE 98 t ti 40 4- 0- 00 RS 11 Av ve 54 20 20 ai 40 08 08 FA la 5 WY bl LY e DR UG AM 00 03 04 00 10 10 SO 27 No Ac OX 09 -0 -0 0. PE 77 t ti IC 34 3- 7- 00 RS 50 Av ve IL 15 20 20 0 ai LI 57 08 08 FA la N 3 WY bl 25 LY e [address] /5 UG ML MCKINLEY SP AC 00 03 04 00 20 5 SO 27 No Ac ET 12 -0 -0 0. PE 77 t ti AM 10 3- 7- 00 RS 43 Av ve IN 50 20 20 0 ai OP 41 08 08 FA la -C 6 WY bl OD LY e EI NE DR UG 12 0- 12 MG /5 AM 00 01 03 00 20 10 SO 27 No Ac OX 09 -2 -2 0. PE 38 t ti IC 34 4- 5- 00 RS 90 Av ve IL 15 20 20 0 ai LI 57 08 08 FA la N 3 WY bl 25 LY e [address] /5 UG ML MCKINLEY SP Results Labs Lab Lab Date Result Refere Interp Status Commen Order Detail nces retati t Range on Cervicovaginal discharge rapid detection (04-24-2017 20:50) Cervico NEGATIV complet vaginal 017 E FOR ed 20:50 RUPTURE dischar ge NEGATIV rapid E FOR detecti RUPTURE on L Mnuqv-8-Fsmkxvscpkyuw.placental [Presence] in Vaginal fluid (04-24-2017 20:50) Alpha-1 [...] in Serum or Plasma (12-28-2016 23:00) Choriog 57865.4 complet onadotr 017 ed opin.be 23:00 ta [...] Procedure DOS Code Location Performer Comment GLUCOSE 66629 [facility] POST 7 PHYSICIAN GLUCOSE S GROUP DOSE THERAPEUT 77519 [facility] IC 7 [facility] PROPHYLAC INC INC TIC/DX INJECTION SUBQ/IM 09249 [facility] NONSTRESS 7 [facility] TEST INC [place] PREG 67403 [facility] U[facility] 7 MEDICAL AFTER 1ST IMAGING TRIMEST ASS GESTATION COMPREHEN 00152 [facility] SIVE 7 [facility] METABOLIC INC INC PANEL GONADOTRO 80574 [facility] PIN 7 [facility] CHORIONIC INC INC QUANTITAT JOEL 68260 [facility] NONSTRESS 7 PHYSICIAN TEST S GROUP CULTURE 69520 [facility] BACTERIAL 7 [facility] INC INC QUANTTATI VE COLONY COUNT URINE URNLS DIP 46251 [facility] 7 [facility] STICK/TAB INC INC LET REAGENT AUTO MICROSCOP Y BLOOD 65988 [facility] COUNT 7 [facility] COMPLETE INC INC AUTO&[place] [address] [facility] INFUSION 7 [facility] THERAPY/P INC INC ROPHYLAXI S /DX 1ST TO 1 HR IADNA 87456 [facility] PICKLESIM CHLAMYDIA 7 LLC ER JR TRACHOMAT IS AMPLIFIED PROBE TQ CYTP C/V 71088 [facility] AUTO THIN 7 LLC ER JR LYR PREPJ SCR MNL RESCR PHYS IADNA 83207 [facility], [facility] NEISSERIA 7 LLC ER JR GONORRHOE AE AMPLIF[place] 57301 [facility] UTERUS 7 MEDICAL REAL TIME IMAGING W/IMAGE ASS DCMTN TRANSVAG DRUG TEST 26715 [facility] PRSMV 7 PHYSICIAN QUAL DIR S GROUP OPTICAL OBS PER DAY URINE 49096 [facility] 7 PHYSICIAN TEST S GROUP VISUAL COLOR CMPRSN METHS RADIOLOGI 69304 [facility] GREGORY ALL C 6 MEDICAL EXAMINATI IMAGING ON TIBIA ASS & FIBULA 2 VIEWS IAADIADOO 33790 [facility] ANDREW 6 PHYSICIAN SANTANA STREPTOCO S GROUP CCUS GROUP A CYTP C/V 33658 [facility], PICKLES[facility] AUTO THIN 5 LLC ER JR KIMMY LYR PREPJ SCR MNL RESCR PHYS THERAPEUT 62873 [facility] IC 5 PHYSICIAN DWAYNE PROPHYLAC S GROUP TIC/DX INJECTION SUBQ/IM NEURAXIAL 87456 [facility] LABOR 5 ANESTH SHE ANALG/ANE OF THE S PLND BLUE VAGINAL DELIVERY VAGINAL 68252 [facility] DELIVERY 5 PHYSICIAN DWAYNE ONLY S GROUP W/POSTPAR REG CARE OTHER 7279 [facility] VACUUM 5 [facility] EXTRACTIO INC INC N OPHTH 19963 [facility] MEDICAL 5 GRE GRE XM&EVAL COMPRHNSV ESTAB PT 1/> RX&FITG 20532 [facility] VALLEJOALL C-LENS 5 GRE GRE SUPVJ CRNL LENS OU XCPT APHK THERAPEUT 53911 [facility] IC 5 [facility] PROPHYLAC INC INC TIC/DX INJECTION SUBQ/IM PARTICLE 60531 [facility] AGGLUTINA 5 [facility] TION INC INC SCREEN EACH ANTIBODY 23199 [facility] NONSTRESS 5 [facility] TEST INC INC DOPPLER 47029 [facility] VELOCIMET 5 PHYSICIAN DWAYNE RY S GROUP UMBILICAL ARTERY 96598 [facility] BIOPHYSIC 5 PHYSICIAN DWAYNE AL S GROUP PROFILE W/O NON-STRES S TESTING US PREG 01595 [facility] UTERUS 5 PHYSICIAN DWAYNE REAL TIME S GROUP F/U TRNSABDL PER FETUS US PREG 95063 [facility] UTERUS 5 PHYSICIAN DWAYNE REAL TIME S GROUP W/IMAGE DCMTN TRANSVAG US PREG 31673 [facility] UTERUS 5 PHYSICIAN DWAYNE REAL TIME S GROUP W/IMAGE DCMTN TRANSVAG 08455 [facility] BIOPHYSIC 5 PHYSICIAN DWAYNE AL S GROUP PROFILE NON-STRES S TESTING EVAL C/V 60686 [facility] AMNIOTIC 5 [facility] FLUID INC INC PROTEIN QUAL EA SPECIMEN 83133 [facility] SAENZ NONSTRESS 5 PHYSICIAN DWAYNE TEST S GROUP URNLS DIP 56878 [facility] 5 [facility] STICK/TAB INC INC LET REAGENT AUTO MICROSCOP Y FTL 34314 [facility] FIBRONECT 5 [facility] IN INC INC CERVICOVA G SECRETION S SEMI-DIANELYS US PREG 58137 [facility] UTERUS 5 PHYSICIAN DWAYNE REAL TIME S GROUP F/U TRNSABDL PER FETUS DOPPLER 47115 [facility] SAENZ VELOCIMET 5 PHYSICIAN DWAYNE RY S GROUP UMBILICAL ARTERY 07831 [facility] BIOPHYSIC 5 PHYSICIAN DWAYNE AL S GROUP PROFILE W/O NON-STRES S TESTING THERAPEUT 94067 [facility] IC 5 [facility] PROPHYLAC INC INC TIC/DX INJECTION SUBQ/IM 30225 [facility] SAENZ NONSTRESS 5 PHYSICIAN DWAYNE TEST S GROUP FTL 00686 [facility] FIBRONECT 5 [facility] IN INC INC CERVICOVA G SECRETION S SEMI-DIANELYS URNLS DIP 65817 [facility] 5 [facility] STICK/TAB INC INC LET REAGENT AUTO MICROSCOP Y GLUCOSE 10881 [facility] POST 5 PHYSICIAN PHYSICIAN GLUCOSE S GROUP S GROUP DOSE 69462 [facility] SAENZ NONSTRESS 5 PHYSICIAN DWAYNE TEST S GROUP 28533 [facility] SAENZ NONSTRESS 5 PHYSICIAN DWAYNE TEST S GROUP 38260 [facility] NONSTRESS 4 [facility] TEST INC INC THERAPEUT 39148 [facility] IC 4 [facility] PROPHYLAC INC INC TIC/DX INJECTION SUBQ/IM URNLS DIP 49318 [facility] 4 [facility] STICK/TAB INC INC LET REAGENT AUTO MICROSCOP Y FTL 62388 [facility] FIBRONECT 4 [facility] IN INC INC CERVICOVA G SECRETION S [facility] 16608 [facility] DISCHARGE 4 PHYSICIAN DWAYNE DAY S GROUP MANAGEMEN T 30 MIN/< SBSQ 15911 [facility] 4 PHYSICIAN DWAYNE CARE/DAY S GROUP 15 MINUTES INITIAL 84711 [facility] 4 PHYSICIAN DWAYNE CARE/DAY S GROUP 50 MINUTES IAADIADOO 47409 RELIGION MELENDEZ 4 EXPRESS DON INFLUENZA CARE US PREG 93192 [facility] UTERUS 4 PHYSICIAN DWAYNE AFTER 1ST S GROUP TRIMEST GESTATION MRI BRAIN 02523 [facility] MACIAS BRAIN 4 MEDICAL MAXIMO STEM W/O IMAGING CONTRAST ASS MATERIAL THERAPEUT 27760 [facility] IC 4 [facility] INJECTION [place] [address] [facility] INFUSION 4 [facility] THERAPY/P INC INC ROPHYLAXI S /DX 1ST TO 1 HR URNLS DIP 85994 [facility] 4 [facility] STICK/TAB INC INC LET REAGENT AUTO MICROSCOP Y BLOOD 92580 [facility] COUNT 4 [facility] COMPLETE INC INC AUTO&AUTO DIFRNTL WBC GONADOTRO 86686 [facility] PIN 4 [facility] CHORIONIC INC INC QUANTITAT JOEL COMPREHEN 51085 [facility] SIVE 4 [facility] METABOLIC INC INC PANEL US PREG 73101 [facility] MACIAS UTERUS 4 MEDICAL MAXIMO REAL TIME IMAGING W/IMAGE ASS DCMTN TRANSVAG CYTP C/V 17049 [facility] AUTO THIN 4 LLC ER JR KIMMY LYR PREPJ SCR MNL RESCR PHYS IADNA 04950 [facility], [facility] CHLAMYDIA 4 LLC ER JR KIMMY TRACHOMAT IS AMPLIFIED PROBE TQ IADNA 95534 [facility], P[facility] NEISSERIA 4 LLC ER JR KIMMY GONORRHOE AE AMPLIFIED PROBE T[place] URINE 07400 [facility] SAENZ 4 DWAYNE DWAYNE TEST VISUAL COLOR CMPRSN METHS BLOOD 39142 [facility] COUNT 4 [facility] COMPLETE INC INC AUTO&AUTO DIFRNTL WBC GONADOTRO 81442 [facility] PIN 4 [facility] CHORIONIC INC INC QUANTITAT JOEL COMPREHEN 18119 [facility] SIVE 4 [facility] METABOLIC INC INC PANEL SMR PRIM 79116 [facility] SRC WET 4 [facility] MOUNT INC INC NFCT AGT TISS HEMAL 71559 [facility] SLIDE 4 [facility] SAMPS INC INC SKN/HR/NL S FNGI/ECTO PARASIT US PREG 26959 [facility] MACIAS UTERUS 4 MEDICAL MAXIMO REAL TIME IMAGING W/[place] [address] [facility] TRANSVAGI 4 [facility] NAL INC INC COMPREHEN 18692 [facility] SIVE 4 [facility] METABOLIC INC INC PANEL GONADOTRO 98361 [facility] PIN 4 [facility] CHORIONIC INC INC QUANTITAT JOEL BLOOD 12857 [facility] COUNT 4 [facility] COMPLETE INC INC AUTO&AUTO DIFRNTL WBC URNLS DIP 18073 [facility] 4 [facility] STICK/TAB INC [place] [address] [facility] INFUSION 4 [facility] THERAPY/P INC INC ROPHYLAXI S /DX 1ST TO 1 HR THERAPEUT 66559 [facility] IC 4 [facility] INJECTION INC INC IV PUSH EACH NEW DRUG URINE 66426 [facility] TEST TH DEPT VISUAL MADINA COLOR CMPRSN METHS SKIN TEST 31537 [facility] 1 [facility] TUBERCULO CENTER CENTER SIS INTRADERM AL INSERTION 06671 [facility], 0 [facility] IMPLANTAB CLINIC OF LE CONTRACEP [place] TIVE PLLC CAPSULES URINE 45397 [facility], 0 [facility] J TEST CLINIC OF VISUAL COLOR [place] CMPRSN PLLC METHS ETONOGEST J7307 [facility], REL 0 HEALTH PERFECTO [facility] CNTRACPT CLINIC OF IMPL SYS INCL IMPL [place] & SPL PLLC ASPIRATIO 6952 [facility] N 0 [facility] CURETTAGE INC INC FOLLOWING DELIVERY/ BLOOD 78993 [facility] COUNT 0 [facility] COMPLETE INC INC AUTO&[place] [address] [facility] INFUSION 0 [facility] THERAPY/P INC INC ROPHYLAXI S /DX 1ST TO [place] [address] PATHOLOGY PATHOLOGY SURG 0 & & PATHOLOGY CYTOLOGY CYTOLOGY LAB LAB GROSS&DRAKE ROSCOPIC EXAM US PREG 87217 PALOMA GILBERTO, UTERUS 0 MEDICAL LATISHA REAL TIME IMAGING W/IMAGE ASSOCIATE DCMTN S TRANSVAG [place] MISSED 07604 [facility], 0 [facility] PERFECTO [facility] [place] PLLC BLOOD 35280 [facility] TYPING 0 [facility] SEROLOGIC INC INC RH (D) US PREG 95185 [facility] GILBERTO, UTERUS 9 MEDICAL LATISHA REAL TIME IMAGING W/IMAGE ASSOCIATE DCMTN S TRANSVAG GONADOTRO 90191 [facility] PIN 9 [facility] CHORIONIC INC INC QUANTITAT JOEL BLOOD 26763 [facility] COUNT 9 [facility] COMPLETE INC INC AUTO&AUTO DIFRNTL WBC TB CELL 74742 A C FÁTIMA, A MEDIATED Earle Taylor ANTIGN PSC RESPNSE GAMMA INTERFERO N URNLS DIP 17481 [facility] 9 [facility] STICK/TAB INC INC LET REAGENT AUTO MICROSCOP Y BLOOD 69738 [facility] COUNT 9 [facility] COMPLETE INC INC AUTO&AUTO DIFRNTL WBC GONADOTRO 01166 [facility] PIN 9 [facility] CHORIONIC INC INC QUANTITAT JOEL US PREG 80436 PALOMA GRIS, UTERUS 9 MEDICAL LAYA P REAL TIME IMAGING W/IMAGE ASSOCIATE DCMTN S TRANSVAG CULTURE 86114 [facility] BACTERIAL 9 [facility] INC INC QUANTTATI VE COLONY COUNT URINE URINE 45966 [facility] 9 [facility] TEST INC [place] [address] [facility] HEAD/BRAI 8 [facility] N W/O INC INC CONTRAST MATERIAL 3D 40825 GE[facility] RENDERING 8 [facility] W/INTERP INC INC & POSTPROCE SS SUPERVISI ON TONSILLEC 94198 [facility] [facility] TATYANA 8 [facility] A[facility] 14/> ANESTHESI 34464 Pau GONZALEZ 8 ANESTHESI ASHLEY INTRAORAL A GROUP WITH PSC BIOPSY NOS LEVEL III 16268 PATHOLOGY PATHOLOGY SURG 8 & & PATHOLOGY CYTOLOGY CYTOLOGY LAB LAB GROSS&DRAKE ROSCOPIC EXAM COLLECTIO 36120 VERÓNICA [facility] N VENOUS 8 [facility] URE GONADOTRO 39687 [facility] PIN 8 [facility] QUALIT[facility] VE BLOOD 12789 [facility] COUNT 8 [facility] N [facility]LOOD 64927 [facility] COUNT 8 [facility] T INJECTION J0696 KODI DAY, Carmen [facility] CEFTRIAXO PSC NE SODIUM PER 250 MG INJECTION J1100 [facility] DEXAMETHO PSC SONE SODIUM PHOSPHATE 1 MG IAADIADOO 83364 KODI DAY, 8 [facility]IN[facility] STREPTOCO PSC CCUS GROUP A Encounters Encounter Start End Date Code Location Performer Type Date [facility] - 7 7 [facility]PATIEN INC T OFFICE [id number] [facility] DANY HOWE 7 7 PHYSICIAN T VISIT S GROUP 15 MINUTES OFFICE 39949 [facility] - 7 7 [facility] T OFFICE 61903 [facility] OUTPATIEN 7 7 PHYSICIAN T VISIT S GROUP 15 MINUTES [facility] - 7 7 [facility] T EMERGENCY 56804 IGNA[facility] KUMAR DEPT 7 7 PHYSICIAN U VISIT S, [facility] HIGH SEVERITY& THREAT FUNJ OFFICE 01719 [facility] OUTPATIEN 7 7 PHYSICIAN T VISIT S GROUP 15 MINUTES OFFICE 84692 [facility] OUTPATIEN 7 7 PHYSICIAN T VISIT S GROUP 15 MINUTES OFFICE 60844 [facility] OUTPATIEN 7 7 PHYSICIAN T VISIT S GROUP 15 MINUTES [facility] T OFFICE [id number] [facility] SAENZ OUTPATIEN 7 7 PHYSICIAN T VISIT S GROUP 25 MINUTES OFFICE 72714 [facility] OUTPATIEN 7 7 PHYSICIAN T VISIT GROUP 25 MINUT[facility] T EMERGENCY 89493 [facility] 6 6 PHYSICIAN DEPARTMEN S, [facility] T VISIT MODERATE SEVERITY EMERGENCY 28912 [facility] 6 6 [facility] DEPARTMEN INC T VISIT LOW/MODER SEVERITY EMERGENCY 49370 IGNACIO DIAZ 6 6 PHYSICIAN GERSON DEPARTMEN S, [facility] T VISIT MODERATE SEVERITY [facility] 6 [facility] OUTPATI[facility] INC T EMERGENCY 17247 [facility] 6 6 [facility] DEPARTMEN INC T VISIT LOW/MODER SEVERITY OFFICE 46071 [facility] ANDREW OUTPATIEN 6 6 PHYSICIAN SANTANA T VISIT S GROUP 15 MINUTES [facility] 5 [facility] INPATIENT INC OFFICE 27991 [facility] OUTPATIEN 5 5 PHYSICIAN DWAYNE T VISIT S GROUP 15 MINUTES OFFICE 02337 [facility] OUTPATIEN 5 5 PHYSICIAN DWAYNE T VISIT S GROUP 15 MINUTES OFFICE 82385 [facility] OUTPATIEN 5 5 PHYSICIAN DWAYNE T VISIT S GROUP 15 MINUTES [facility] 5 [facility] OUTPATI[facility] INC T OFFICE 48736 [facility] OUTPATIEN 5 5 PHYSICIAN DWAYNE T VISIT S GROUP 15 MINUTES OFFICE 03012 [facility] OUTPATIEN 5 5 PHYSICIAN DWAYNE T VISIT S GROUP 15 MINUTES OFFICE 74487 [facility] OUTPATIEN 5 5 PHYSICIAN DWAYNE T VISIT S GROUP 15 MINUTES OFFICE 09464 [facility] OUTPATIEN 5 5 PHYSICIAN DWAYNE T VISIT S GROUP 15 MINUTES [facility] 5 [facility] OUTPATI[facility] INC T OFFICE 90625 [facility] OUTPATIEN 5 5 PHYSICIAN DWAYNE T VISIT S GROUP 15 MINUTES OFFICE 00952 [facility] OUTPATIEN 5 5 PHYSICIAN DWAYNE T VISIT S GROUP 15 MINUTES [facility] 5 [facility] OUTPATIEN INC T OFFICE 46185 [facility] OUTPATIEN 5 5 PHYSICIAN DWAYNE T VISIT S GROUP 15 MINUTES OFFICE 57496 RENE MILLAN OUTPATIEN 5 5 YANA KULKARNI RODRIGUE T VISIT 15 MINUTES [facility] T [facility] INPATIENT INC OFFICE 34390 [facility] OUTPATIEN 4 4 PHYSICIAN DWAYNE T VISIT S GROUP 15 MINUTES OFFICE 63987 RELIGIONRick MELENDEZ OUTPATIEN 4 4 EXPRESS DON T NEW 30 CARE MINUTES OFFICE 86064 [facility] DANY HOWE 4 4 PHYSICIAN DWAYNE T VISIT S GROUP 15 MINUTES [facility] 4 [facility] OUTPATIEN INC T EMERGENCY 71311 [facility] DE[facility] 4 4 RENU VISIT EMERGENCY HIGH PHYS SEVERITY& THREAT FUNCJ OFFICE 15551 [facility] DANY FREYEN 4 4 PHYSICIAN DWAYNE T VISIT S GROUP 15 MINUTES [facility] MOH VISIT EMERGENCY HIGH PHYS SEVERITY& THREAT FUNCJ EMERGENCY 58541 [facility] 4 4 [facility] DEPARTMEN INC T VISIT MODERATE SEVERITY [facility] OUT[facility] INC T OFFICE 19245 DANY HOWE 4 4 DWAYNE DWAYNE T VISIT 25 MINUTES [facility] 4 [facility] OUTPATIEN INC T EMERGENCY 23311 [facility] 4 4 [facility] DEPART[facility] INC T VISIT MODERATE SEVERITY EMERGENCY 03960 [facility] 4 4 RENU DEPARTMEN EMERGENCY T VISIT PHYS HIGH/URGE NT SEVERITY [facility] 4 [facility] OUT[facility] INC T EMERGENCY 78945 [facility] 4 4 [facility] DEPARTMEN INC T VISIT HIGH/URGE NT SEVERITY EMERGENCY 82442 [facility] DEPT 4 4 RENU VISIT EMERGENCY HIGH PHYS SEVERITY& THREAT FUNCJ OFFICE 69032 [facility] T VISIT [facility] DEPT 10 [place] MINUTES OFFICE 23501 [facility] OUTPATIEN 1 1 FÁTIMA KULKARNI T VISIT PSC 10 MINUTES OFFICE 02243 [facility] OUT[facility]HELLEEN 1 1 [facility] MIN[facility] OFFICE 64420 [facility] OUT[facility] 1 1 [facility] VISIT [facility] CENTER 10 MINUTES PERIODIC 32422 [facility] PREVENTIV 1 1 FÁTIMA KULKARNI E MED EST PSC PATIENT -17YRS OFFICE 12616 [facility] OUTPATIEN 0 0 FÁTIMA KULKARNI T VISIT PSC 15 MINUTES OFFICE 96733 [facility] OUTPATIEN 0 0 FÁTIMA Taylor T VISIT PSC 15 MINUTES PERIODIC 09239 [facility] PREVENTIV 0 0 FÁTIMA Taylor E MED EST PSC PATIENT [facility] OUTPATIEN INC T EMERGENCY 33604 FRANCO[facility] FOSS, DEPT 0 0 EMERGENCY HARISH S VISIT SERVICES HIGH SEVERITY& ASSOCIATE THREAT S [facility] 9 9 [facility] OUTPATIEN INC T EMERGENCY 79057 [facility] 9 9 [facility] DEPARTMEN INC T VISIT MODERATE SEVERITY EMERGENCY 29003 [facility] DEPT 9 9 EMERGENCY HARISH S VISIT SERVICES HIGH SEVERITY& ASSOCIATE THREAT S [facility] OFFICE 84431 [facility]au CANALES OUTPATIEN 9 9 FÁTIMA Taylor T NEW 30 PSC MINUTES EMERGENCY 67374 [facility] 9 9 [facility] DEPARTMEN INC T VISIT HIGH/URGE NT SEVERITY [facility] 9 9 [facility] OUTPATIEN INC T EMERGENCY 67520 FRANCOIS FOSS, SILVIAT 9 9 EMERGENCY HARISH S VISIT SERVICES HIGH SEVERITY& ASSOCIATE THREAT S [facility] OFFICE 74693 CARLEY CLARKE 9 9 CLINIC [facility] T VISIT PSC 15 MINUTES PERIODIC 32190 EMILI CLARKE 9 9 [facility]IN[facility] E MED EST PSC PATIENT 12-17YRS EMERGENCY 02916 NANCY GONZALEZ, 8 8 [facility] [employer] T VISIT ON HIGH/URGE NT SEVERITY EMERGENCY 69045 [facility] 8 8 [facility] T VISIT MODERATE SEVERITY [facility] 8 8 [facility] OUTPATIEN [facility] T EMERGENCY 29842 YANCI 8 8 [facility] T VISIT LIMITED/M INOR [facility] YANCI [facility] 8 8 [facility] VERÓNICA - 8 8 [facility] EMERGENCY 67300 KODI DAY, 8 8 [facility] T VISIT LOW/MODER SEVERITY OFFICE 42048 JADA ELIAS OUTPATIEN 8 8 JOHN Pineda T VISIT 15 MINUTES OFFICE 79330 JADA ELIAS OUTPATIEN 8 8 JOHN Pineda T NEW 30 MINUTES OFFICE 58045 CARLEY CLARKE 8 8 CLINIC [facility] T VISIT PSC 15 MINUTES OFFICE 10913 CARLEY CLARKE 8 8 CLINIC [facility] T VISIT PSC 15 MINUTES
--- OUTSIDE RECORDS SUMMARY | 2017-04-29 11:02 | External Medical Summary Rpt | CCD ---
Author Author , MICHAEL Organization MICHAEL Address Unknown Phone [email or web address] Medical Care Team Providers Care Lower In Supervisor Name Role Phone A Claudia SHINE MD PSC, Pau Unavailable Unavailable Claudia SHINE MD PSC ALFARIS MOH, ALFARIS Unavailable Unavailable MOH [facility], Unavailable Unavailable [facility] GREGORY, GREGORY Unavailable Unavailable GREGORY ALL, GREGORY ALL Unavailable Unavailable [facility] Un[facility], [facility] KOURTNEY OCONNELL Unavailable Unavailable SAENZ SAENZ Unavailable Unavailable SAENZ DWAYNE, SAENZ Unavailable Unavailable DWAYNE SAENZ DWAYNE, SAENZ Unavailable Unavailable DWAYNE PERFECTO SAENZ J, Unavailable Unavailable PERFECTO SAENZ J ANDREW SANTANA, Unavailable Unavailable GILBERTO SEPULVEDA Unavailable Unavailable GILBERTO MAXIMO, Unavailable Unavailable GILBERTO MAXIMO LATISHA MACIAS, Unavailable Unavailable GILBERTO, LATISHA [facility] Un[facility] HARISH FOSS, Unavailable Unavailable HARISH FOSS RONDAL E, Unavailable Unavailable YULY GONZALEZ HARPEL Unavailable Unavailable [facility] Unavailable Unavailable [place], [facility] Unavailable Unavailable [place], [facility] Unavailable Unavailable INC, [facility], Unavailable Unavailable [facility] Unavailable Unavailable [facility] Unavailable Unavailable [facility], [facility] JOHN ELIAS, Unavailable Unavailable JOHN ELIAS, Unavailable Unavailable FRANCOIS ALFRED, Unavailable Unavailable LAYA BUENO, Unavailable Unavailable LAYA LANDRY HARRY, Unavailable Unavailable ASHLEY LOJA [facility], Unavailable Unavailable [facility] Un[facility] Un[facility] Un[facility] Unavailable Unavailable LAB, [facility] GERALDO BARRERA, Unavailable Unavailable PICKLESIMER JR PICKLESIMER JR KIMMY, Unavailable Unavailable [facility]LES[facility] JR KIMMY RENUSCH GERSON, RENUSCH Unavailable Unavailable GERSON SADEK MOH, SADEK MOH Unavailable Unavailable MELENDEZ DON, Unavailable Unavailable MELENDEZ DON [facility], Unavailable Unavailable [facility], Unavailable [facility] Unavailable Unavailable EMER[facility]Y PH[facility], [facility] GISELLE SHE, Unavailable Unavailable GISELLE SHE TAMAREN, SHERRY, Unavailable Unavailable TAMAREN, SHERRY [facility] Unavailable Unavailable #[id number], [facility] # Unavailable Unavailable [id number], [facility] # [id number] [facility] # Unavailable Unavailable [id number], [facility] # [id number] [facility] Unavailable Unavailable DEPT [facility], [facility] DEPT [facility] FRANCISCO SAUL, FRANCISCO SHA Unavailable Unavailable SHINE A, SHINE A Unavailable Unavailable SHINE, A C, SHINE, Unavailable Unavailable A C Purpose Continuity of Care Document - 07-22-2007 through 2016 Problems Code Diagnosis DOS Provider Status [id number] ABNORMAL 03-13-2017 [facility] GLUCOSE PHYSICIANS COMPLICATIN GROUP G O2693 03-11-2017 [facility] CONDITIONS INC UNS 3RD TRIMESTER Z3A28 28 WEEKS 03-11-2017 [facility]STATION [facility] OF INC Z3480 ENC 03-10-2017 [facility] SUPERVISION PHYSICIANS OTH NORMAL GROUP PREG UNS TRIMESTER [id number] DECREASED 02-10-2017 [facility] MOVEMENTS INC SECOND TRI NA/UNS Z3A24 24 WEEKS 02-10-2017 [facility] INC Z36 ENCOUNTER 01-09-2017 [place] [facility] ASS SCREENING OF MOTHER Z3A19 19 WEEKS 01-09-2017 [facility] MEDICAL OF IMAGING ASS O2692 12-28-2016 [facility] CONDITIONS INC UNS 2ND TRIMESTER O4702 FALSE LABOR 12-28-2016 [facility] BEFORE 37 PHYSICIANS, CMPLETE PLLC WEEKS GEST 2ND TRI O4703 FALSE LABOR 12-28-2016 [facility] BEFORE 37 PHYSICIANS CMPLETE GROUP WEEKS GEST 3RD TRI R1084 GENERALIZED 12-28-2016 [facility]BDOMINAL [facility] PAIN INC R197 DIARRHEA 12-28-2016 [facility] UNSPECIFIED [facility] INC Z3A17 17 WEEKS 12-28-2016 [facility] GE[facility]ATION [facility] OF INC Z3A18 18 WEEKS 12-28-2016 [facility] GESTATION PHYSICIANS, OF PLLC Z113 ENCOUNTER 10-29-2016 [facility] S[facility]EN [facility] INFECTIONS SEXL MODE TRANSMISSN Z3481 ENC 10-29-2016 [facility] SUPERVISION LLC OT NORMAL 1 TRIMESTER D03141 UTERINE 10-10-2016 [facility] SIZE-DATE [facility] DISCREPANCY INC FIRST TRIMESTER Z3491 ENC 10-10-2016 [facility] MEDICAL NORMAL IMAGING ASS UNS 1 TRIMESTER Z3A01 LESS THAN 8 10-10-2016 [facility]ICAL GESTATION IMAGING ASS OF Z3201 ENCOUNTER 10-02-2016 [facility] FOR PHYSICIANS GROUP TEST RESULT POSITIVE J0100 ACUTE 06-30-2016 [facility] MAXILLARY PHYSICIAN SINUSITIS GROUP UNSPECIFIED R1110 VOMITING 03-04-2016 [facility] E88772 PAIN IN 02-19-2016 [facility] RIGHT LEG PHYSICIANS, [facility] R2241 LOCALIZED 02-19-2016 [facility]WELLING [facility] MASS & LUMP INC RIGHT LOWER LIMB J029 ACUTE 01-10-2016 [facility] PHARYNGITIS PHYSICIANS GROUP UNSPECIFIED R05 COUGH 01-10-2016 [facility]ANS GROUP V242 ROUTINE 11-15-2014 [facility] FOLLOW-UP V2549 SURVEILLANC 10-18-2014 [facility] E OT PREV PHYSICIANS PRSC GROUP CONTRACEPT METHOD 650 NORMAL 09-29-2014 [facility] DELIVERY PHYSICIANS GROUP 32060 FORCEPS/EXT 09-29-2014 [facility] RACTOR DEL [facility] W/O INC INDICATION- DELIVERED V270 OUTCOME OF 09-29-2014 [facility] DELIVERY [facility] SINGLE INC LIVEBORN V220 SUPERVISION 09-26-2014 [facility] OF NORMAL PHYSICIANS FIRST GROUP 3671 MYOPIA 09-09-2014 [facility] 47217 OTHER 09-06-2014 [facility] THREATENED [facility] LABOR, INC ANTEPARTUM 99918 POOR 09-05-2014 [facility] GROWTH MGMT PHYSICIANS MOTH GROUP ANTPRTM COND/COMP 14824 THREATENED 08-17-2014 [facility] PREMATURE PHYSICIANS LABOR GROUP ANTEPARTUM 79999 OTHER 07-28-2014 [facility] SPECIFED [facility] COMPLICATIO INC N ANTEPARTUM 40791 THREATENED 07-17-2014 [facility] PRE[facility]URE [facility] LABOR INC UNSPEC EPIS CARE 68316 ABNORMAL 07-10-2014 [facility] MATERNAL PHYSICIANS GLUCOSE GROUP TOLERANCE ANTEPARTUM 4659 ACUTE URIS 06-07-2014 [facility] EXPRESS UNSPECIFIED CARE SITE 01187 FEVER 06-07-2014 [facility] UNSPECIFIED EXPRESS CARE 47385 NAUSEA 06-07-2014 [facility] CARE V283 ENCOUNTER 06-01-2014 [facility] ROUTINE PHYSICIANS SCREEN GROUP MALFORMATIO N ULTRASONIC 34093 MIGRAINE 05-04-2014 [facility] W/AURA W/O N EMERGENCY INTRACT W/O PHYS STATUS MIGRNOSUS 46744 MIGRAINE 05-04-2014 [place] [facility] W/O MEDICAL INTRACT W/O IMAGING ASS STATUS MIGRAINOSUS 3688 OTHER 05-04-2014 [place] SPECIFIED MEDICAL VISUAL IMAGING ASS DISTURBANCE S 7804 DIZZINESS 05-04-2014 [place] AND MEDICAL GIDDINESS IMAGING ASS 43761 OTHER 05-04-2014 [place] MALAISE AND MEDICAL FATIGUE IMAGING ASS V222 05-04-2014 [facility] INCIDENT[facility] INC 44919 UNSPEC 04-08-2014 [place] HEMORRHAGE MEDICAL EARLY IMAGING ASS ANTEPARTUM 29752 ASYMPTOMATI 04-08-2014 [facility] C N EMERGENCY BACTERIURIA PHYS ANTEPARTUM 59899 SPOTTING 04-08-2014 [facility] COMP N EMERGENCY PHYS ANTEPARTUM COND/COMP 7907 BACTEREMIA 04-08-2014 [facility] INC V221 SUPERVISION 04-04-2014 [facility] OF OTHER LLC NORMAL V7242 04-04-2014 SAENZ DWAYNE EXAMINATION OR TEST POSITIVE RESULT V745 SCREENING 04-04-2014 [facility] EXAMINATION LLC FOR VENEREAL DISEASE 79652 THREATENED 03-30-2014 [facility] , N EMERGENCY ANTEPARTUM PHYS 04883 OTH CURRENT 03-30-2014 [place] MAT CONDS MEDICAL CLASSIFIABL IMAGING ASS E ELSW ANTPRTM 48663 ABDOMINAL 03-30-2014 [place] PAIN, MEDICAL UNSPECIFIED IMAGING ASS SITE 00986 MILD 02-20-2014 [facility] HYPEREMESIS N EMERGENCY GRAVIDARUM PHYS ANTEPARTUM V2689 OTHER 02-09-2014 [facility] SPECIFIED HEALTH PROCREATIVE MANAGEMENT 1121 CANDIDIASIS 11-06-2010 A Claudia SHINE OF [facility] AND VAGINA V741 SCREENING 09-23-2010 [facility] EXAMINATION [facility] FOR [place] PULMONARY TUBERCULOSI S V202 ROUTINE 09-13-2010 A Claudia SHINE OR [facility] CHILD HEALTH CHECK 9409 UNSPECIFIED 02-13-2010 A Claudia SHINE BURN OF [facility] EYE AND ADNEXA V255 INSERTION 07-30-2009 [facility] IMPL[facility] OF SUBDERMAL [place] CONTRACEPTI [facility] VE 632 MISSED 07-04-2009 [facility] 6238 OTHER 05-23-2009 [facility] SPECIFIED EMERGENCY NONINFLAMMA SERVICES TORY ASSOCIATES DISORDER VAGINA 5990 URINARY 05-12-2009 [facility] TRACT [facility] INFECTION INC SITE NOT SPECIFIED 71084 INFECTIONS 05-11-2009 [facility] OF EMERGENCY GENITOURINA SERVICES RY TRACT ASSOCIATES ANTEPARTUM 7061 OTHER ACNE 03-09-2009 [facility] V703 OTH GENERAL 09-07-2008 [facility] EXAMINATION ADMIN PURPOSES 4612 ACUTE 04-29-2008 [employer] ETHMOIDAL Espressi SINUSITIS [facility] 4619 ACUTE 04-29-2008 [facility] SINUSITIS, [facility] UNSPECIFIED INC 7840 HEADACHE 04-29-2008 [facility] 0570 ERYTHEMA 09-20-2007 [facility] INFECTIOSUM [facility] 58789 ESOPHAGEAL 09-20-2007 [facility] REFLUX [facility] 92497 CHRONIC 08-30-2007 ELIJAH ELIAS 33349 HYPERTROPHY 08-30-2007 PATHOLOGY & OF TONSILS CYTOLOGY ALONE LAB V7284 UNSPECIFIED 08-27-2007 [facility] VE EXAMINATION 7821 RASH AND 08-22-2007 [facility] NONSPECIFIC SKIN ERUPTION 69657 CHEST PAIN 08-22-2007 [facility] UNSPECIFIED [facility]INIC PSC 4779 ALLERGIC 08-10-2007 [facility] RHINITIS JOHN Pineda CAUSE UNSPECIFIED 463 ACUTE 07-23-2007 [facility] TONSILLITIS JOHN Pineda 12430 OTHER 07-23-2007 [facility] DISEASE OF [facility] PHARYNX OR NASOPHARYNX 7856 ENLARGEMENT 07-23-2007 [facility] OF LYMPH JOHN Pineda NODES 0340 STREPTOCOCC 07-22-2007 [facility] SORE [facility] THROAT Medications Na ND Rx Da Fi Fi [...] CY MG #5 TA 91 BL ET TX 68 04 05 14 7 00 WA [...] CY CA #5 PS 91 UL E 00 05 05 0 20 3 WA 44 ME Ac 40 -2 -2 .0 L- 87 AD ti 60 5- 5- 00 MA 97 E ve 35 20 20 RT 1 DM 80 11 11 D 1 PH JE AR WE MA LL CY # 10 04 93 TX 68 05 05 0 15 3 WA 70 ME Ac OM 38 -2 -2 .0 L- 79 AD ti ET 20 5- 5- 00 MA 88 E ve ESTRADA 04 20 20 RT 7 DM ZI 10 11 11 D NE 1 PH JE AR WE 25 MA LL CY MG # TA 10 BL 04 ET 93 ME 00 05 05 0 21 6 WA 70 ME Ac TH 60 -2 -2 .0 L- 79 AD ti YL 34 5- 5- 00 MA 88 E ve TX 59 20 20 RT 8 DM ED 31 11 11 D NI 5 PH JE SO AR WE LO MA LL NE CY 4 # MG 10 04 DO 93 SE PK AM 00 05 05 0 21 7 WA 70 ME Ac OX 78 -2 -2 .0 L- 79 AD ti IC 12 5- 5- 00 MA 89 E ve IL 61 20 20 RT 0 DM LI 30 11 11 D N 5 PH JE 50 AR WE 0 MA LL MG CY # CA PS 10 UL 04 E 93 00 05 05 0 20 3 [...] 20 RT 9 IN 50 09 09 NE 1 PH CH 50 AR AE 0 [...] E AR D MA CY #5 91 TX 00 11 11 00 15 4 SO 29 GO Ac OC 78 -0 -2 .0 PE 72 BL ti HL 15 4- 0- 00 RS 71 E ve OR 02 20 20 RO PE 10 08 08 FA ND RA 1 NE AL ZI LY E NE DR 10 UG MG TA B AM 00 11 11 00 30 10 SO 29 GO Ac OX 09 -0 -2 .0 PE 72 BL ti IC 33 4- 0- 00 RS 70 E ve IL 10 20 20 RO LI 90 08 08 FA ND N 5 NE AL 50 LY E [address] UG CA PS UL E 49 03 04 00 60 30 SO 27 No Ac 88 -2 -1 .0 PE 98 t ti 40 4- 0- 00 RS 11 Av ve 54 20 20 ai 40 08 08 FA la 5 NE bl LY e DR UG AM 00 03 04 00 10 10 SO 27 No Ac OX 09 -0 -0 0. PE 77 t ti IC 34 3- 7- 00 RS 50 Av ve IL 15 20 20 0 ai LI 57 08 08 FA la N 3 NE bl 25 LY e [address] /5 UG ML MCKINLEY SP AC 00 03 04 00 20 5 SO 27 No Ac ET 12 -0 -0 0. PE 77 t ti AM 10 3- 7- 00 RS 43 Av ve IN 50 20 20 0 ai OP 41 08 08 FA la -C 6 NE bl OD LY e EI NE DR UG 12 0- 12 MG /5 AM 00 01 03 00 20 10 SO 27 No Ac OX 09 -2 -2 0. PE 38 t ti IC 34 4- 5- 00 RS 90 Av ve IL 15 20 20 0 ai LI 57 08 08 FA la N 3 NE bl 25 LY e [address] /5 UG ML MCKINLEY SP Procedures Procedure DOS Code Location Performer Comment GLUCOSE 18755 Juan M SAENZ POST 7 PHYSICIAN GLUCOSE S GROUP DOSE THERAPEUT 91883 [facility] IC 7 [facility] PROPHYLAC INC INC TIC/DX INJECTION SUBQ/IM 90602 [facility] NONSTRESS 7 [facility] [place] [address] [place] GIL[facility]ERT[place] UTERUS 7 MEDICAL AFTER 1ST IMAGING TRIMEST ASS GESTATION COMPREHEN 88790 [facility] SIVE 7 [facility] METABOLIC INC INC PANEL CULTURE 02859 [facility] BACTERIAL 7 [facility] INC INC QUANTTATI VE COLONY COUNT URINE 43575 Juan M SAENZ NONSTRESS 7 PHYSICIAN TEST S GROUP URNLS DIP 86821 [facility] 7 [facility] STICK/TAB INC INC LET REAGENT AUTO MICROSCOP Y GONADOTRO 16143 [facility] PIN 7 [facility] CHORIONIC INC INC QUANTITAT JOEL BLOOD 22015 [facility] COUNT 7 [facility] COMPLETE INC INC AUTO&[place] [address] [facility] INFUSION 7 [facility] THERAPY/P INC INC ROPHYLAXI S /DX 1ST TO 1 HR CYTP C/V 02100 [facility] AUTO THIN 7 LLC ER JR LYR PREPJ SCR MNL RESCR PHYS IADNA 29934 [facility] CHLAMYDIA 7 LLC ER JR TRACHOMAT IS AMPLIFIED PROBE TQ IADNA 33527 [facility], [facility] NEISSERIA 7 LLC ER JR GONORRHOE AE [place] PREG 14560 [place] GREGORY UTERUS 7 MEDICAL REAL TIME IMAGING W/IMAGE ASS DCMTN TRANSVAG DRUG TEST 98369 [facility] DANY PRSMV 7 PHYSICIAN QUAL DIR S GROUP OPTICAL OBS PER DAY URINE 53402 [facility] DANY 7 PHYSICIAN TEST S GROUP VISUAL COLOR CMPRSN METHS RADIOLOGI 25015 [facility] C 6 MEDICAL EXAMINATI IMAGING ON TIBIA ASS & FIBULA 2 VIEWS IAADIADOO 12836 [facility] ANDREW 6 PHYSICIAN SANTANA STREPTOCO S GROUP CCUS GROUP A CYTP C/V 96062 [facility], [facility] AUTO THIN 5 LLC ER JR KIMMY LYR PREPJ SCR MNL RESCR PHYS THERAPEUT 33503 [facility] DANY IC 5 PHYSICIAN DWAYNE PROPHYLAC S GROUP TIC/DX INJECTION SUBQ/IM OTHER 7279 [facility] VACUUM 5 [facility] EXTRACTIO INC INC N NEURAXIAL 78873 [facility] LABOR 5 ANESTH SHE ANALG/ANE OF THE S PLND BLUE VAGINAL DELIVERY VAGINAL 40118 [facility] DELIVERY 5 PHYSICIAN DWAYNE ONLY S GROUP W/POSTPAR REG CARE OPHTH 09571 [facility] MEDICAL 5 GRE GRE XM&EVAL COMPRHNSV ESTAB PT 1/> RX&FITG 82428 [facility] C-LENS 5 GRE GRE SUPVJ CRNL LENS OU XCPT APHK THERAPEUT 68246 [facility] IC 5 [facility] PROPHYLAC INC INC TIC/DX INJECTION SUBQ/IM 36061 [facility] NONSTRESS 5 [facility] TEST INC INC PARTICLE 86235 [facility] AGGLUTINA 5 [facility] TION INC INC SCREEN EACH ANTIBODY DOPPLER 70244 [facility] VELOCIMET 5 PHYSICIAN DWAYNE RY S GROUP UMBILICAL ARTERY 10259 [facility] BIOPHYSIC 5 PHYSICIAN DWAYNE AL S GROUP PROFILE W/O NON-STRES S TESTING US PREG 85221 [facility] UTERUS 5 PHYSICIAN DWAYNE REAL TIME S GROUP F/U TRNSABDL PER FETUS US PREG 95983 [facility] UTERUS 5 PHYSICIAN DWAYNE REAL TIME S GROUP W/IMAGE DCMTN TRANSVAG US PREG 88756 [facility] UTERUS 5 PHYSICIAN DWAYNE REAL TIME S GROUP W/IMAGE DCMTN TRANSVAG 15886 [facility] SAENZ BIOPHYSIC 5 PHYSICIAN DWAYNE AL S GROUP PROFILE NON-STRES S TESTING EVAL C/V 65156 [facility] AMNIOTIC 5 [facility] FLUID INC INC PROTEIN QUAL EA SPECIMEN URNLS DIP 94417 [facility] 5 [facility] STICK/TAB INC INC LET REAGENT AUTO MICROSCOP Y 81104 [facility] SAENZ NONSTRESS 5 PHYSICIAN DWAYNE TEST S GROUP FTL 60686 [facility] FIBRONECT 5 [facility] IN INC INC CERVICOVA G SECRETION S SEMI-DIANELYS US PREG 10974 [facility] SAENZ UTERUS 5 PHYSICIAN DWAYNE REAL TIME S GROUP F/U TRNSABDL PER FETUS 69590 [facility] SAENZ BIOPHYSIC 5 PHYSICIAN DWAYNE AL S GROUP PROFILE W/O NON-STRES S TESTING DOPPLER 83414 [facility] SAENZ VELOCIMET 5 PHYSICIAN DWAYNE RY S GROUP UMBILICAL ARTERY FTL 51745 [facility] FIBRONECT 5 [facility] IN INC INC CERVICOVA G SECRETION S SEMI-DIANELYS URNLS DIP 75484 [facility] 5 [facility] STICK/TAB INC INC LET REAGENT AUTO MICROSCOP Y 15206 [facility] SAENZ NONSTRESS 5 PHYSICIAN DWAYNE TEST S GROUP THERAPEUT 59540 [facility] IC 5 [facility] PROPHYLAC INC INC TIC/DX INJECTION SUBQ/IM GLUCOSE 07349 [facility] POST 5 PHYSICIAN PHYSICIAN GLUCOSE S GROUP S GROUP DOSE 91142 [facility] SAENZ NONSTRESS 5 PHYSICIAN DWAYNE TEST S GROUP 43101 [facility] SAENZ NONSTRESS 5 PHYSICIAN DWAYNE TEST S GROUP 78780 [facility] NONSTRESS 4 [facility] TEST INC INC URNLS DIP 98010 [facility] 4 [facility] STICK/TAB INC INC LET REAGENT AUTO MICROSCOP Y FTL 50363 [facility] FIBRONECT 4 [facility] IN INC INC CERVICOVA G SECRETION S SEMI-DIANELYS THERAPEUT 10653 [facility] IC 4 [facility] PROPHYLAC INC INC TIC/DX INJECTION SUBQ/IM HOSPITAL 35761 [facility] DISCHARGE 4 PHYSICIAN DWAYNE DAY S GROUP MANAGEMEN T 30 MIN/< SBSQ 46275 [facility] 4 PHYSICIAN DWAYNE CARE/DAY S GROUP 15 MINUTES INITIAL 77960 [facility] 4 PHYSICIAN DWAYNE CARE/DAY S GROUP 50 MINUTES IAADIADOO 11372 [facility] MELENDEZ 4 EXPRESS [place] 01968 [facility] UTERUS 4 PHYSICIAN DWAYNE AFTER 1ST S GROUP TRIMEST GESTATION THERAPEUT 59394 [facility] IC 4 [facility] INJECTION INC INC IV PUSH EACH NEW DRUG MRI BRAIN 78126 [facility] BRAIN 4 MEDICAL MAXIMO STEM W/[place] [address] [facility] INFUSION 4 [facility] THERAPY/P INC INC ROPHYLAXI S /DX 1ST TO 1 HR BLOOD 63598 [facility] COUNT 4 [facility] COMPLETE INC INC AUTO&AUTO DIFRNTL WBC COMPREHEN 34889 [facility] SIVE 4 [facility] METABOLIC INC INC PANEL US PREG 43623 [place] [facility] UTERUS 4 MEDICAL MAXIMO REAL TIME IMAGING W/IMAGE ASS DCMTN TRANSVAG GONADOTRO 34989 [facility] PIN 4 [facility] CHORIONIC INC INC QUANTITAT JOEL URNLS DIP 92620 [facility] 4 [facility] STICK/TAB INC INC LET REAGENT AUTO MICROSCOP Y CYTP C/V 97857 [facility] TH[facility] 4 LLC ER JR KIMMY LYR PREPJ SCR MNL RESCR PHYS IADNA 55741 [facility] NEISSERIA 4 LLC ER JR KIMMY GONORRHOE AE AMPLIFIED PROBE TQ IADNA 28850 [facility], [facility] CHLAMYDIA 4 LLC ER JR KMIMY TRACHOMAT IS AMPLIFIED PROBE TQ URINE 00137 [facility] SA[facility]Z 4 DWAYNE DWAYNE TEST VISUAL COLOR CMPRSN METHS GONADOTRO 92483 [facility] PIN 4 [facility] CHORIONIC INC INC QUANTITAT JOEL BLOOD 28800 [facility] COUNT 4 [facility] COMPLETE INC INC AUTO&AUTO DIFRNTL WBC SMR PRIM 21712 [facility] SRC WET 4 [facility] MOUNT INC INC NFCT AGT TISS HEMAL 76280 [facility] SLIDE 4 [facility] SAMPS INC INC SKN/HR/NL S FNGI/ECTO PARASIT COMPREHEN 98971 [facility] SIVE 4 [facility] METABOLIC INC INC PANEL US PREG 99585 [facility] UTERUS 4 MEDICAL MAXIMO REAL TIME IMAGING [place] [address] [facility] TRANSVAGI 4 [facility] NAL INC INC COMPREHEN 56274 [facility] SIVE 4 [facility] METABOLIC INC INC PANEL URNLS DIP 83070 [facility] 4 [facility] STICK/TAB INC INC LET REAGENT AUTO MICROSCOP Y GONADOTRO 69185 [facility] PIN 4 [facility] CHORIONIC INC INC QUANTITAT JOEL BLOOD 98751 [facility] COUNT 4 [facility] COMPLETE INC INC AUTO&[place] [address] [facility] INFUSION 4 [facility] THERAPY/P INC INC ROPHYLAXI S /DX 1ST TO 1 HR THERAPEUT 87965 [facility] IC 4 [facility] INJECTION INC INC IV PUSH EACH NEW DRUG URINE 02449 [facility] TEST HLTH DEPT VISUAL [place] COLOR CMPRSN METHS SKIN TEST 06450 [facility] 1 [facility] CENTER SIS INTRADERM AL ETONOGEST J7307 [facility], REL 0 HEALTH PERFECTO J CNTRACPT CLINIC OF IMPL SYS INCL IMPL [place] & SPL [facility] URINE 45361 [facility], 0 HEALTH PERFECTO J TEST CLINIC OF VISUAL COLOR [place] CMPRSN [facility] METHS INSERTION 04988 [facility], 0 HEALTH PERFECTO J IMPLANTAB CLINIC OF LE CONTRACEP [place] TIVE [facility] CAPSULES ASPIRATIO 6952 [facility] N 0 [facility] CURETTAGE INC [place] FOLLOWING DELIV[place]/ [place] [address] [facility] INFUSION 0 [facility] THERAPY/P INC INC ROPHYLAXI S /DX 1ST TO 1 HR BLOOD 00023 [facility] COUNT 0 [facility] COMPLETE INC INC AUTO&[place]REG 23759 [place] GIL[place]ERT[place], UTERUS 0 MEDICAL LATISHA REAL TIME IMAGING W/IMAGE ASSOCIATE [place] [address] PATHOLOGY PATHOLOGY SURG 0 & & PATHOLOGY CYTOLOGY CYTOLOGY LAB LAB GROSS&DRAKE ROSCOPIC EXAM [place] MISSED 61823 [facility], [facility] BLOOD 89728 [facility] TYPING 0 [facility] SEROLOGIC INC INC RH (D) [place] PREG 37773 [place] GILBERT[place], UTERUS 9 MEDICAL LATISHA REAL TIME IMAGING W/IMAGE ASSOCIATE DCMTN S TRANSVAG GONADOTRO 40457 [facility] PIN 9 [facility] CHORIONIC INC INC QUANTITAT JOEL BLOOD 14789 [facility] COUNT 9 [facility] COMPLETE INC INC AUTO&AUTO DIFRNTL WBC TB CELL 33949 A C FÁTIMA, Pau MEDIATED 9 FÁTIMA Taylor ANTIGN PSC RESPNSE GAMMA INTERFERO N URNLS DIP 45204 [facility] 9 [facility] STICK/TAB INC INC LET REAGENT AUTO MICROSCOP Y GONADOTRO 39183 [facility] PIN 9 [facility] CHORIONIC INC INC QUANTITAT JOEL US PREG 11011 [place] GRIS, UTERUS 9 MEDICAL LAYA P REAL TIME IMAGING W/IMAGE ASSOCIATE DCMTN S TRANSVAG CULTURE 94701 [facility] BACTERIAL 9 [facility] INC INC QUANTTATI VE COLONY COUNT URINE BLOOD 42857 [facility] COUNT 9 [facility] COMPLETE INC INC AUTO&AUTO DIFRNTL WBC URINE 88419 [facility] 9 [facility] TEST INC [place] [address] [facility] HEAD/BRAI 8 [facility] N W/O INC INC CONTRAST MATERIAL 3D 68259 [facility] RENDERING 8 [facility] W/INTERP INC INC & POSTPROCE SS SUPERVISI ON LEVEL III 50345 PATHOLOGY PATHOLOGY SURG 8 & & PATHOLOGY CYTOLOGY CYTOLOGY LAB LAB GROSS&DRAKE ROSCOPIC EXAM ANESTHESI 20086 Pau GONZALEZ ANESTHESI ASHLEY INTRAORAL A GROUP WITH PSC BIOPSY NOS TONSILLEC 43271 [facility] TATYANA 8 [facility] ECONDARY AGE 12/> COLLECTIO 30450 [facility] N VENOUS 8 [facility] VENIPUNCT URE BLOOD 90276 [facility] 8 [facility] T GONADOTRO 98398 [facility] PIN 8 [facility] QU[facility] VE BLOOD 83769 [facility] COUNT 8 [facility] INJE[facility] J0696 [facility] CEFTRIAXO PSC NE SODIUM PER 250 MG INJECTION J1100 [facility] DEXAMETHO PSC SONE SODIUM PHOSPHATE 1 MG IAADIADOO 53599 [facility] STREPTOCO PSC CCUS GROUP A Encounters Encounter Start End Date Code Location Performer Type Date [facility] - 7 7 [facility] OUTPATIEN INC T OFFICE 68190 [facility] DANY HOWE 7 7 PHYSICIAN T VISIT S GROUP 15 MINUTES OFFICE 93412 [facility] SAENZ OUTPATIEN 7 7 PHYSICIAN T VISIT S GROUP 15 MINUTES HOSPITAL [facility] - 7 7 [facility] OUTPATIEN INC T OFFICE 79512 [facility] SAENZ OUTPATIEN 7 7 PHYSICIAN T VISIT S GROUP 15 MINUTES EMERGENCY 03192 [facility] KUMAR DEPT 7 7 PHYSICIAN U VISIT S, PLLC HIGH SEVERITY& THREAT [facility] - [facility] 7 [facility] OUT[facility]IEN INC T OFFICE [id number] [facility] SAENZ OUTPATIEN 7 7 PHYSICIAN T VISIT S GROUP 15 MINUTES OFFICE 02648 [facility] OUTPATIEN 7 7 PHYSICIAN T VISIT S GROUP 15 MINUTES OFFICE 06223 [facility] OUTPATIEN 7 7 PHYSICIAN T VISIT S GROUP 15 MINUTES [facility] - 7 7 [facility] OUTPATIEN INC T OFFICE 60069 [facility] OUTPATIEN 7 7 PHYSICIAN T VISIT S GROUP 25 MINUTES OFFICE 63092 [facility] KOURTNEY OUTPATIEN 7 7 PHYSICIAN T VISIT GROUP 25 MINUTES EMERGENCY 79936 [facility] 6 6 [facility] DEPARTMEN INC T VISIT LOW/MODER SEVERITY EMERGENCY 78702 IGNACIO CAMEJO 6 6 [facility] SE[facility] - 6 6 [facility] OUTPATIEN INC T EMERGENCY 38764 IGNACIO DIAZ 6 6 PHYSICIAN GERSON [facility] MODERATE SEVERITY [facility] - 6 6 [facility] OUTPATIEN INC T EMERGENCY 70083 [facility] 6 6 [facility] DEPARTMEN INC T VISIT LOW/MODER SEVERITY OFFICE 56039 [facility] ANDREW OUTPATIEN 6 6 PHYSICIAN SANTANA T VISIT S GROUP 15 MINUTES [facility] - 5 5 [facility] INPATIENT INC OFFICE 85614 [facility] OUTPATIEN 5 5 PHYSICIAN DWAYNE T VISIT S GROUP 15 MINUTES OFFICE 01855 [facility] OUTPATIEN 5 5 PHYSICIAN DWAYNE T VISIT S GROUP 15 MINUTES OFFICE 07677 [facility] OUTPATIEN 5 5 PHYSICIAN DWAYNE T VISIT S GROUP 15 MINUTES OFFICE 78337 [facility] OUTPATIEN 5 5 PHYSICIAN DWAYNE T VISIT S GROUP 15 MINUTES [facility] - 5 5 [facility] OUTPATIEN INC T OFFICE 17552 [facility] OUTPATIEN 5 5 PHYSICIAN DWAYNE T VISIT S GROUP 15 MINUTES OFFICE 31939 [facility] OUTPATIEN 5 5 PHYSICIAN DWAYNE T VISIT S GROUP 15 MINUTES OFFICE 42931 [facility] OUTPATIEN 5 5 PHYSICIAN DWAYNE T VISIT S GROUP 15 MINUTES [facility] - 5 5 [facility] OUTPATIEN INC T OFFICE 46110 [facility] OUTPATIEN 5 5 PHYSICIAN DWAYNE T VISIT S GROUP 15 MINUTES OFFICE 77315 [facility] OUTPATIEN 5 5 PHYSICIAN DWAYNE T VISIT S GROUP 15 MINUTES [facility] 5 5 [facility] OUTPATIEN INC T OFFICE 15897 [facility] OUTPATIEN 5 5 PHYSICIAN DWAYNE T VISIT S GROUP 15 MINUTES OFFICE 94556 RENE MILLAN OUTPATIEN 5 5 YANA KULKARNI RODRIGUE T VISIT 15 MINUTES [facility] 4 [facility] OUTPAT[facility]EN [facility] T [facility] - 4 4 [facility] INPATIENT INC OFFICE 98474 [facility] OUTPATIEN 4 4 PHYSICIAN DWAYNE T VISIT S GROUP 15 MINUTES OFFICE 47063 TAOISMRick MELENDEZ OUTPATIEN 4 4 EXPRESS DON T NEW 30 CARE MINUTES OFFICE 01295 [facility] DANY OUTPATIEN 4 4 PHYSICIAN DWAYNE T VISIT S GROUP 15 MINUTES [facility] - 4 4 [facility] OUTPATIEN INC T EMERGENCY 43259 [facility] DEPT 4 4 RENU VISIT EMERGENCY HIGH PHYS SEVERITY& THREAT FUNCJ OFFICE 97104 [facility] DANY OUTMICHELLEEN 4 4 PHYSICIAN DWAYNE T VISIT S GROUP 15 MINUTES [facility] - 4 4 [facility] OUTPATIEN INC T EMERGENCY 89820 [facility] 4 4 [facility] DEPARTMEN INC T VISIT MODERATE SEVERITY EMERGENCY 89805 [facility] DEPT 4 4 RENU MOH VISIT EMERGENCY HIGH PHYS SEVERITY& THREAT FUNCJ OFFICE 35928 [facility] OUTMICHELLEEN 4 4 DWAYNE DWAYNE T VISIT 25 MINUTES [facility] - 4 4 [facility] OUTPATIEN INC T EMERGENCY 12422 [facility] 4 4 RENU DEPARTMEN EMERGENCY T VISIT PHYS HIGH/URGE NT SEVERITY EMERGENCY 89841 [facility] 4 4 [facility] DEPARTMEN INC T VISIT MODERATE SEVERITY EMERGENCY 32805 [facility] 4 4 [facility] DEPARTMEN INC T VISIT HIGH/URGE NT SEVERITY [facility] - 4 4 [facility] OUTPATIEN INC T EMERGENCY 10699 [facility] DEPT 4 4 RENU VISIT EMERGENCY HIGH PHYS SEVERITY& THREAT FUNCJ OFFICE 49109 [facility] DEPT 10 [place] MINUTES OFFICE 93286 [facility] Mai OUTPATIEN 1 1 FÁTIMA KULKARNI T VISIT PSC 10 MINUTES OFFICE 63469 [facility] OUTPATIEN 1 1 [facility] T VISIT 5 CENTER CENTER MINUTES OFFICE 25796 [facility] OUTPATIEN 1 1 [facility] T VISIT CENTER CENTER 10 MINUTES PERIODIC 31698 A Claudia Mai PREVENTIV 1 1 FÁTIMA KULKARNI E MED EST PSC PATIENT S OFFICE 68195 A Claudia Mai OUTPATIEN 0 0 FÁTIMA KULKARNI T VISIT PSC 15 MINUTES OFFICE 99096 [facility] CANALES OUTPATIEN 0 0 FÁTIMA Taylor T VISIT [facility] 15 MINUTES PERIODIC 33482 Pau CANALES PREVENTIV 0 0 FÁTIMA Taylor E MED EST PSC PATIENT 06-14YRS [facility] OUTPATIEN INC T EMERGENCY 35803 FRANCO[facility] FOSS, DEPT 0 0 EMERGENCY HARISH S VISIT SERVICES HIGH SEVERITY& ASSOCIATE THREAT S [facility] - 9 9 [facility] OUTPATIEN INC T EMERGENCY 69571 FRANCO[facility] FOSS, DEPT 9 9 EMERGENCY HARISH S VISIT SERVICES HIGH SEVERITY& ASSOCIATE THREAT S [facility] EMERGENCY 20111 [facility] 9 9 [facility] DEPARTMEN INC T VISIT MODERATE SEVERITY OFFICE 41470 [facility] CANALES OUTPATIEN 9 9 FÁTIMA KULKARNI C T NEW 30 PSC MINUTES EMERGENCY 77993 [facility] 9 9 [facility] DEPARTMEN INC T VISIT HIGH/URGE NT SEVERITY [facility] - 9 9 [facility] OUTPATIEN INC T EMERGENCY 96178 FRANCOIS FOSS, DEPT 9 9 EMERGENCY HARISH S VISIT SERVICES HIGH SEVERITY& ASSOCIATE THREAT S [facility] OFFICE 50591 CARLEY CLARKE 9 9 [facility] T VISIT PSC 15 MINUTES PERIODIC 27209 KODI DAY PREVENTIV 9 9 [facility] E MED EST PSC PATIENT 12-17YRS EMERGENCY 71673 [facility] 8 8 [facility] DEPARTMEN INC T VISIT MODERATE SEVERITY [facility] - 8 8 [facility] OUTPATIEN INC T EMERGENCY 89888 NANCY GONZALEZ, 8 8 [facility] T VISIT ON HIGH/URGE NT SEVERITY HOSPITAL [facility] - 8 8 [facility] T EMERGENCY 39680 YANCI 8 8 [facility] T VISIT LIMITED/M INOR PROB [facility] [place] - 8 8 [facility] HOSPITAL [place] - 8 8 [facility] T EMERGENCY 31068 KODI DAY, [address] [facility] VISIT LOW/MODER SEVERITY OFFICE 92185 JADA ELIAS OUTPATIEN 8 8 JOHN Pineda T VISIT 15 MINUTES OFFICE 23038 CARLEY CLARKE 8 8 [facility] T VISIT PSC 15 MINUTES OFFICE 55399 JADA ELIAS OUTPATIEN 8 8 JOHN Pineda T NEW 30 MINUTES OFFICE 69326 CARLEY CLARKE 8 8 [facility] T VISIT PSC 15 MINUTES
--- OUTSIDE RECORDS SUMMARY | 2017-04-29 11:02 | External Medical Summary Rpt | CCD ---
Author Author , MICHAEL Organization MICHAEL Address Unknown Phone [email or web address] Care Team Providers Care Eap Counselor Name Role Phone A Claudia SHINE MD PSC, Pau Unavailable Unavailable Claudia SHINE MD PSC ALFARIS MOH, ALFARIS Unavailable Unavailable [facility], Unavailable Unavailable [facility] GREGORY, GREGORY Unavailable Unavailable GREGORY ALL, GREGORY ALL Unavailable Unavailable [facility] Unavailable Unavailable HOSPITAL, [facility] KOURTNEY OCONNELL Unavailable Unavailable SAENZ SAENZ Unavailable [...] Unavailable YULY GONZALEZ HARPEL Unavailable Unavailable [facility] Unavailable Unavailable [place], [facility] Unavailable Unavailable [place], [facility] Unavailable Unavailable INC, [facility], [facility]available Unavailable [facility], Unavailable Unavailable [facility] Unavailable Unavailable [facility], [facility] JOHN ELIAS, Unavailable Unavailable JOHN ELIAS, Unavailable Unavailable FRANCOIS ALFRED, Unavailable Unavailable LAYA BUENO, Unavailable Unavailable LAYA LANDRY HARRY, Unavailable Unavailable ASHLEY LOJA [facility], Unavailable Unavailable [facility] Unavailable Unavailable [...] DR[facility] SOTINGEANU, Unavailable Unavailable [facility] Un[facility] Un[facility], [facility] GISELLE SHE, Unavailable Unavailable GISELLE SHE TAMAREN, SHERRY, Unavailable Unavailable TAMAREN, SHERRY [facility] Unavailable Unavailable #591, [facility] # Unavailable Unavailable [id number], [facility] # [id number] [facility] # Unavailable Unavailable [id number], [facility] # [id number] [facility] Unavailable Unavailable DEPT [facility], [facility] DEPT [facility] FRANCISCO SAUL, FRANCISCO SHA Unavailable Unavailable SHINE A, SHINE A Unavailable Unavailable SHINE, A C, SHINE, Unavailable Unavailable A C Purpose Continuity of Care Document - 07-22-2007 through 2016 Problems Code Diagnosis DOS Provider Status [id number] ABNORMAL 03-13-2017 [facility] GLUCOSE PHYSICIANS COMPLICATIN GROUP G O2693 03-11-2017 [facility] CONDITIONS INC UNS 3RD TRIMESTER Z3A28 28 WEEKS 03-11-2017 [facility] GESTATION [facility] OF INC Z3480 ENC 03-10-2017 [facility] SUPERVISION PHYSICIANS OTH NORMAL GROUP PREG UNS TRIMESTER [id number] DECREASED 02-10-2017 [facility] MOVEMENTS INC SECOND TRI NA/UNS Z3A24 24 WEEKS 02-10-2017 [facility] INC Z36 ENCOUNTER 01-09-2017 [place] [facility] SCREENING OF MOTHER Z3A19 19 WEEKS 01-09-2017 [facility] O2692 12-28-2016 [facility] CONDITIONS INC UNS 2ND TRIMESTER O4702 FALSE LABOR 12-28-2016 [facility] BEFORE 37 PHYSICIANS, CMPLETE PLLC WEEKS GEST 2ND TRI O4703 FALSE LABOR 12-28-2016 [facility] BEFORE 37 PHYSICIANS CMPLETE GROUP [...] LABS, [facility] LLC OT NORMAL 1 TRIMESTER [id number] UTERINE 10-10-2016 [facility] SIZE-DATE [facility] DISCREPANCY INC FIRST TRIMESTER Z3491 ENC 10-10-2016 [facility] MEDICAL NORMAL IMAGING ASS UNS 1 TRIMESTER Z3A01 LESS THAN 8 10-10-2016 [facility] MEDICAL GESTATION IMAGING ASS OF Z3201 ENCOUNTER 10-02-2016 [facility] FOR PHYSICIANS GROUP TEST RESULT POSITIVE J0100 ACUTE 06-30-2016 [facility] MAXILLARY PHYSICIAN SINUSITIS GROUP UNSPECIFIED R1110 VOMITING 03-04-2016 [facility] H18152 PAIN IN 02-19-2016 [facility] RIGHT LEG PHYSICIANS, [facility] R2241 LOCALIZED 02-19-2016 [facility]WELLING [facility] MASS & LUMP INC RIGHT LOWER LIMB J029 ACUTE 01-10-2016 [facility] PHARYNGITIS PHYSICIANS GROUP UNSPECIFIED R05 COUGH 01-10-2016 [facility] PHYSICIANS GROUP V242 ROUTINE 11-15-2014 [facility] FOLLOW-UP V2549 SURVEILLANC 10-18-2014 [facility] E OT PREV PHYSICIANS PRSC GROUP CONTRACEPT METHOD 650 NORMAL 09-29-2014 [facility] DELIVERY PHYSICIANS GROUP 25511 FORCEPS/EXT 09-29-2014 [facility] RACTOR DEL [facility] W/O INC INDICATION- DELIVERED V270 OUTCOME OF 09-29-2014 [facility] DELIVERY [facility] SINGLE INC LIVEBORN V220 SUPERVISION 09-26-2014 [facility] OF NORMAL PHYSICIANS FIRST GROUP 3671 MYOPIA 09-09-2014 [facility] [place] 42603 OTHER 09-06-2014 [facility] THREATENED [facility] LABOR, INC ANTEPARTUM 46468 POOR 09-05-2014 [facility] GROWTH MGMT PHYSICIANS MOTH GROUP ANTPRTM COND/COMP 08950 THREATENED 08-17-2014 [facility] PREMATURE PHYSICIANS LABOR GROUP ANTEPARTUM 67421 OTHER 07-28-2014 [facility] SPECIFED [facility] COMPLICATIO INC N ANTEPARTUM 26444 THREATENED 07-17-2014 [facility] PREMATURE [facility] LABOR INC UNSPEC EPIS CARE 87727 ABNORMAL 07-10-2014 [facility] MATERNAL PHYSICIANS GLUCOSE GROUP TOLERANCE ANTEPARTUM 4659 ACUTE URIS 06-07-2014 [facility] UNSPECIFIED CARE SITE 53214 FEVER 06-07-2014 [facility] UNSPECIF[facility] CARE 73749 NAUSEA 06-07-2014 [facility] CARE V283 ENCOUNTER 06-01-2014 [facility] ROUTINE PHYSICIANS SCREEN GROUP MALFORMATIO N ULTRASONIC 08254 MIGRAINE 05-04-2014 [facility] W/AURA W/O N EMERGENCY INTRACT W/O PHYS STATUS MIGRNOSUS 20715 MIGRAINE 05-04-2014 [place] UNSP W/O MEDICAL INTRACT W/O IMAGING ASS STATUS MIGRAINOSUS 3688 OTHER 05-04-2014 [place] SPECIFIED MEDICAL VISUAL IMAGING ASS DISTURBANCE S 7804 DIZZINESS 05-04-2014 [place] AND MEDICAL GIDDINESS IMAGING ASS 29292 OTHER 05-04-2014 [place] MALAISE AND MEDICAL FATIGUE IMAGING ASS V222 05-04-2014 [facility] INCIDENTAL INC 71346 UNSPEC 04-08-2014 [place] HEMORRHAGE MEDICAL EARLY IMAGING ASS ANTEPARTUM 97558 ASYMPTOMATI 04-08-2014 [facility] C N EMERGENCY BACTERIURIA PHYS ANTEPARTUM 97699 SPOTTING 04-08-2014 [facility] COMP N EMERGENCY PHYS ANTEPARTUM COND/COMP 7907 BACTEREMIA 04-08-2014 [facility] INC V221 SUPERVISION 04-04-2014 [facility] OTHER LLC NORMAL V7242 04-04-2014 SAENZ DWAYNE EXAMINATION OR TEST POSITIVE RESULT V745 SCREENING 04-04-2014 [facility] EXAMINATION LLC FOR VENEREAL DISEASE 32042 THREATENED 03-30-2014 [facility] , N EMERGENCY ANTEPARTUM PHYS 24829 OTH CURRENT 03-30-2014 [place] MAT CONDS MEDICAL CLASSIFIABL IMAGING ASS E ELSW ANTPRTM 86162 ABDOMINAL 03-30-2014 [place] PAIN, MEDICAL UNSPECIFIED IMAGING ASS SITE 16861 MILD 02-20-2014 [facility] HYPEREMESIS N EMERGENCY GRAVIDARUM PHYS ANTEPARTUM V2689 OTHER 02-09-2014 [facility] SPECIFIED HEALTH PROCREATIVE MANAGEMENT 1121 CANDIDIASIS 11-06-2010 A Claudia SHINE OF [facility] AND VAGINA V741 SCREENING 09-23-2010 [facility] EXAMINATION HEALTH FOR [place] PULMONARY TUBERCULOSI S V202 ROUTINE 09-13-2010 A Claudia SHINE OR [facility] CHILD HEALTH CHECK 9409 UNSPECIFIED 02-13-2010 A Claudia SHINE [facility] OF [facility] EYE AND ADNEXA V255 INSERTION 07-30-2009 [facility] IMPLANTABLE CLINIC OF SUBDERMAL [place] CONTRACEPTI [facility] VE 632 MISSED 07-04-2009 [facility] 6238 OTHER 05-23-2009 [facility] SPECIFIED EMERGENCY NONINFLAMMA SERVICES TORY ASSOCIATES DISORDER VAGINA 5990 URINARY 05-12-2009 [facility] TRACT [facility] INFECTION INC SITE NOT SPECIFIED 95495 INFECTIONS 05-11-2009 [facility] OF EMERGENCY GENITOURINA SERVICES RY TRACT ASSOCIATES ANTEPARTUM 7061 OTHER ACNE 03-09-2009 [facility] V703 OTH GENERAL 09-07-2008 [facility] EXAMINATION ADMIN PURPOSES 4612 ACUTE 04-29-2008 [facility] ETHMOIDAL [employer] SINUSITIS Collactive 4619 ACUTE 04-29-2008 [facility] SINUSITIS, [facility] UNSPECIFIED INC 7840 HEADACHE 04-29-2008 [facility] 0570 ERYTHEMA 09-20-2007 [facility] INFECTIOSUM [facility] 29260 ESOPHAGEAL 09-20-2007 [facility] REFLUX [facility] 12427 CHRONIC 08-30-2007 ELIJAH ELIAS 36852 HYPERTROPHY 08-30-2007 PATHOLOGY & OF TONSILS CYTOLOGY ALONE LAB V7284 UNSPECIFIED 08-27-2007 [facility] 7821 RASH AND 08-22-2007 [facility] OTHER [facility] NONSPECIFIC SKIN ERUPTION 91619 CHEST PAIN 08-22-2007 [facility] UNSPECIFIED CLINIC PSC 4779 ALLERGIC 08-10-2007 [facility] RHINITIS JOHN [facility]ined[facility] CAUSE UNSPECIFIED 463 ACUTE 07-23-2007 [facility] TONSILLITIS [facility] 86416 OTHER 07-23-2007 [facility] DISEASE OF [facility] PHARYNX OR NASOPHARYNX 7856 ENLARGEMENT 07-23-2007 [facility] OF LYMPH [facility] NODES 0340 STREPTOCOCC 07-22-2007 [facility] SORE [facility] THROAT Medications Na ND Rx Da Fi [...] CY MG #5 TA 91 BL ET CA 68 04 05 14 7 00 WA [...] MA LL CY # 10 04 93 CA 68 05 05 0 15 3 WA [...] 5- 5- 00 MA 88 E ve CA 59 20 20 RT 8 DM ED [...] 20 RT 9 IN 50 09 09 IN 1 PH CH 50 AR AE 0 [...] E AR D MA CY #5 91 CA 00 11 11 00 15 4 SO 29 GO Ac OC 78 -0 -2 .0 PE 72 BL ti HL 15 4- 0- 00 RS 71 E ve OR 02 20 20 RO PE 10 08 08 FA ND RA 1 IN AL ZI LY E NE DR 10 UG MG TA B AM 00 11 11 00 30 10 SO 29 GO Ac OX 09 -0 -2 .0 PE 72 BL ti IC 33 4- 0- 00 RS 70 E ve IL 10 20 20 RO LI 90 08 08 FA ND N 5 IN AL 50 LY E [address] UG CA PS UL E 49 03 04 00 60 30 SO 27 No Ac 88 -2 -1 .0 PE 98 t ti 40 4- 0- 00 RS 11 Av ve 54 20 20 ai 40 08 08 FA la 5 IN bl LY e DR UG AM 00 03 04 00 10 10 SO 27 No Ac OX 09 -0 -0 0. PE 77 t ti IC 34 3- 7- 00 RS 50 Av ve IL 15 20 20 0 ai LI 57 08 08 FA la N 3 IN bl 25 LY e [address] /5 UG ML MCKINLEY SP AC 00 03 04 00 20 5 SO 27 No Ac ET 12 -0 -0 0. PE 77 t ti AM 10 3- 7- 00 RS 43 Av ve IN 50 20 20 0 ai OP 41 08 08 FA la -C 6 IN bl OD LY e EI NE DR UG 12 0- 12 MG /5 AM 00 01 03 00 20 10 SO 27 No Ac OX 09 -2 -2 0. PE 38 t ti IC 34 4- 5- 00 RS 90 Av ve IL 15 20 20 0 ai LI 57 08 08 FA la N 3 IN bl 25 LY e [address] /5 UG ML MCKINLEY SP Procedures Procedure DOS Code Location Performer Comment GLUCOSE 96543 Juan M SAENZ POST 7 PHYSICIAN GLUCOSE S GROUP DOSE THERAPEUT 46534 [facility] IC 7 [facility] PROPHYLAC INC INC TIC/DX INJECTION SUBQ/IM 25785 [facility] NONSTRESS 7 [facility] [place] PREG [address] [place] [facility] UTERUS 7 MEDICAL AFTER 1ST IMAGING TRIMEST ASS GESTATION COMPREHEN 81404 [facility] SIVE 7 [facility] METABOLIC INC INC PANEL CULTURE 81740 [facility] BACTERIAL 7 [facility] INC INC QUANTTATI VE COLONY COUNT URINE 40245 Juan M SAENZ NONSTRESS 7 PHYSICIAN TEST S GROUP URNLS DIP 11311 [facility] 7 [facility] STICK/TAB INC INC LET REAGENT AUTO MICROSCOP Y GONADOTRO 51038 [facility] PIN 7 [facility] CHORIONIC INC INC QUANTITAT JOEL BLOOD 12807 [facility] COUNT 7 [facility] COMPLETE INC INC AUTO&[place] [address] [facility] INFUSION 7 [facility] THERAPY/P INC INC ROPHYLAXI S /DX 1ST TO 1 HR CYTP C/V 83633 [facility] AUTO THIN 7 LLC ER JR LYR PREPJ SCR MNL RESCR PHYS IADNA 30425 [facility] CHLAMYDIA 7 LLC ER JR TRACHOMAT IS AMPLIFIED PROBE TQ IADNA 02077 [facility] NEISSERIA 7 LLC ER JR GONORRHOE AE AMPLIF[place] T[place] PREG 73141 [place] GREGORY UTERUS 7 MEDICAL REAL TIME IMAGING W/IMAGE ASS DCMTN TRANSVAG DRUG TEST 21007 [facility] DANY PRSMV 7 PHYSICIAN QUAL DIR S GROUP OPTICAL OBS PER DAY URINE 29271 [facility] DANY 7 PHYSICIAN TEST S GROUP VISUAL COLOR CMPRSN METHS RADIOLOGI 48545 [facility] ALL C 6 MEDICAL EXAMINATI IMAGING ON TIBIA ASS & FIBULA 2 VIEWS IAADIADOO 09773 [facility] ANDREW 6 PHYSICIAN SANTANA STREPTOCO S GROUP CCUS GROUP A CYTP C/V 21277 [facility], [facility] AUTO THIN 5 LLC ER JR KIMMY LYR PREPJ SCR MNL RESCR PHYS THERAPEUT 06467 [facility] DANY IC 5 PHYSICIAN DWAYNE PROPHYLAC S GROUP TIC/DX INJECTION SUBQ/IM OTHER 7279 [facility] VACUUM 5 [facility] EXTRACT[facility] INC INC N NEURAXIAL 57879 [facility] LABOR 5 ANESTH SHE ANALG/ANE OF THE S PLND BLUE VAGINAL DELIVERY VAGINAL 90307 [facility] DANY DELIVERY 5 PHYSICIAN DWAYNE ONLY S GROUP W/POSTPAR REG CARE OPHTH 87139 [facility] MEDICAL 5 GRE GRE XM&EVAL COMPRHNSV ESTAB PT 1/> RX&FITG 85399 [facility] C-LENS 5 GRE GRE SUPVJ CRNL LENS OU XCPT APHK THERAPEUT 86656 [facility] IC 5 [facility] PROPHYLAC INC INC TIC/DX INJECTION SUBQ/IM 26259 [facility] NONSTRESS 5 [facility] TEST INC INC PARTICLE 74890 [facility] AGGLUTINA 5 [facility] TION INC INC SCREEN EACH ANTIBODY DOPPLER 44108 [facility] DANY VELOCIMET 5 PHYSICIAN DWAYNE RY S GROUP UMBILICAL ARTERY 79920 [facility] DANY BIOPHYSIC 5 PHYSICIAN DWAYNE AL S GROUP PROFILE W/O NON-STRES S TESTING US PREG 41072 [facility] DANY UTERUS 5 PHYSICIAN DWAYNE REAL TIME S GROUP F/U TRNSABDL PER FETUS US PREG 29019 [facility] DANY UTERUS 5 PHYSICIAN DWAYNE REAL TIME S GROUP W/IMAGE DCMTN TRANSVAG US PREG 67627 [facility] DANY UTERUS 5 PHYSICIAN DWAYNE REAL TIME S GROUP W/IMAGE DCMTN TRANSVAG 98290 [facility] SAENZ BIOPHYSIC 5 PHYSICIAN DWAYNE AL S GROUP PROFILE NON-STRES S TESTING EVAL C/V 17918 [facility] AMNIOTIC 5 [facility] FLUID INC INC PROTEIN QUAL EA SPECIMEN URNLS DIP 09494 [facility] 5 [facility] STICK/TAB INC INC LET REAGENT AUTO MICROSCOP Y 86575 [facility] SAENZ NONSTRESS 5 PHYSICIAN DWAYNE TEST S GROUP FTL 74772 [facility] FIBRONECT 5 [facility] IN INC INC CERVICOVA G SECRETION S SEMI-DIANELYS US PREG 15902 [facility] SAENZ UTERUS 5 PHYSICIAN DWAYNE REAL TIME S GROUP F/U TRNSABDL PER FETUS 57229 [facility] SAENZ BIOPHYSIC 5 PHYSICIAN DWAYNE AL S GROUP PROFILE W/O NON-STRES S TESTING DOPPLER 18109 [facility] SAENZ VELOCIMET 5 PHYSICIAN DWAYNE RY S GROUP UMBILICAL ARTERY FTL 14500 [facility] FIBRONECT 5 [facility] IN INC INC CERVICOVA G SECRETION S SEMI-DIANELYS URNLS DIP 51340 [facility] 5 [facility] STICK/TAB INC INC LET REAGENT AUTO MICROSCOP Y 74761 [facility] SAENZ NONSTRESS 5 PHYSICIAN DWAYNE TEST S GROUP THERAPEUT 90462 [facility] IC 5 [facility] PROPHYLAC INC INC TIC/DX INJECTION SUBQ/IM GLUCOSE 00542 [facility] POST 5 PHYSICIAN PHYSICIAN GLUCOSE S GROUP S GROUP DOSE 25772 [facility] SAENZ NONSTRESS 5 PHYSICIAN DWAYNE TEST S GROUP 24047 [facility] SAENZ NONSTRESS 5 PHYSICIAN DWAYNE TEST S GROUP 43445 [facility] NONSTRESS 4 [facility] TEST INC INC URNLS DIP 72298 [facility] 4 [facility] STICK/TAB INC INC LET REAGENT AUTO MICROSCOP Y FTL 04046 [facility] FIBRONECT 4 [facility] IN INC INC CERVICOVA G SECRETION S SEMI-DIANELYS THERAPEUT 97022 [facility] IC 4 [facility] PROPHYLAC INC INC TIC/DX INJECTION SUBQ/IM HOSPITAL 21360 [facility] DISCHARGE 4 PHYSICIAN DWAYNE DAY S GROUP MANAGEMEN T 30 MIN/< SBSQ 20935 [facility] 4 PHYSICIAN DWAYNE CARE/DAY S GROUP 15 MINUTES INITIAL 95309 [facility] 4 PHYSICIAN DWAYNE CARE/DAY S GROUP 50 MINUTES IAADIADOO 85872 [facility] MELENDE[facility] 4 EXPRESS DON [place]FL[place]EN[place] PREG 89033 [facility] UTERUS 4 PHYSICIAN DWAYNE AFTER 1ST S GROUP TRIMEST GESTATION THERAPEUT 96567 [facility] IC 4 [facility] INJECTION INC INC IV PUSH EACH NEW DRUG MRI BRAIN 02021 PSYCHIATRIC BRAIN 4 MEDICAL MAXMIO STEM W/[place] [address] [facility] INFUSION 4 [facility] THERAPY/P INC INC ROPHYLAXI S /DX 1ST TO 1 HR BLOOD 52202 [facility] COUNT 4 [facility] COMPLETE INC INC AUTO&AUTO DIFRNTL WBC COMPREHEN 64366 [facility] SIVE 4 [facility] METABOLIC INC INC PANEL US PREG 94218 [place] [facility] UTERUS 4 MEDICAL MAXIMO REAL TIME IMAGING W/IMAGE ASS DCMTN TRANSVAG GONADOTRO 23970 [facility] PIN 4 [facility] CHORIONIC INC INC QUANTITAT JOEL URNLS DIP 15537 [facility] 4 [facility] STICK/TAB INC INC LET REAGENT AUTO MICROSCOP Y CYTP C/V 81112 [facility] 4 LLC ER JR KIMMY LYR PREPJ SCR MNL RESCR PHYS IADNA 75408 [facility], [facility] NEISSERIA 4 LLC ER JR KIMMY GONORRHOE AE AMPLIFIED PROBE TQ IADNA 63965 [facility], [facility] CHLAMYDIA 4 LLC ER JR KIMMY TRACHOMAT IS AMPLIFIED PROBE TQ URINE 58717 [facility] SAENZ 4 DWAYNE DWAYNE TEST VISUAL COLOR CMPRSN METHS GONADOTRO 06387 [facility] PIN 4 [facility] CHORIONIC INC INC QUANTITAT JOEL BLOOD 75790 [facility] COUNT 4 [facility] COMPLETE INC INC AUTO&AUTO DIFRNTL WBC SMR PRIM 32972 [facility] SRC WET 4 [facility] MOUNT INC INC NFCT AGT TISS HEMAL 57680 [facility] SLIDE 4 [facility] SAMPS INC INC SKN/HR/NL S FNGI/ECTO PARASIT COMPREHEN 13714 [facility] SIVE 4 [facility] METABOLIC INC INC PANEL US PREG 70876 [facility] UTERUS 4 MEDICAL MAXIMO REAL TIME IMAGING [place] [address] [facility] TRANSVAGI 4 [facility] NAL INC INC COMPREHEN 48702 [facility] SIVE 4 [facility] METABOLIC INC INC PANEL URNLS DIP 74546 [facility] 4 [facility] STICK/TAB INC INC LET REAGENT AUTO MICROSCOP Y GONADOTRO 23524 [facility] PIN 4 [facility] CHORIONIC INC INC QUANTITAT JOEL BLOOD 34604 [facility] COUNT 4 [facility] COMPLETE INC INC AUTO&[place] [address] [facility] INFUSION 4 [facility] THERAPY/P INC INC ROPHYLAXI S /DX 1ST TO 1 HR THERAPEUT 60805 [facility] IC 4 [facility] INJECTION INC INC IV PUSH EACH NEW DRUG URINE 50805 [facility] TEST HLTH DEPT VISUAL [place]AD[place] COLOR CMPRSN METHS SKIN TEST 54199 [facility] 1 [facility] CENTER SIS INTRADERM AL ETONOGEST J7307 [facility], REL 0 HEALTH PERFECTO J CNTRACPT CLINIC OF IMPL SYS INCL IMPL [place] & SPL [facility] URINE 16331 [facility], 0 HEALTH PERFECTO J TEST CLINIC OF VISUAL COLOR [place] CMPRSN [facility] METHS INSERTION 45920 [facility], 0 HEALTH PERFECTO J IMPLANTAB CLINIC OF LE CONTRACEP [place] TIVE [facility] CAPSULES ASPIRATIO 6952 [facility] N 0 [facility] CURETTAGE [place] FOLLOWING DELIV[place]/ [place] [address] [facility] INFUSION 0 [facility] THERAPY/P INC INC ROPHYLAXI S /DX 1ST TO 1 HR BLOOD 07699 [facility] COUNT 0 [facility] COMPLETE INC INC AUTO&[place] PREG 13390 [place] G[facility], UTERUS 0 MEDICAL LATISHA REAL TIME IMAGING W/IMAGE [place]OCI[place] [address] PATHOLOGY PATHOLOGY SURG 0 & & PATHOLOGY CYTOLOGY CYTOLOGY LAB LAB GROSS&DRAKE ROSCOPIC EXAM [place] MISSED 21681 [facility], [facility] SURGICAL [place] [facility] BLOOD 67216 [facility] TYPING 0 [facility] SEROLOGIC INC INC RH (D) US PREG 92377 [place] [facility], UTERUS 9 MEDICAL LATISHA REAL TIME IMAGING W/IMAGE ASSOCIATE DCMTN S TRANSVAG GONADOTRO 60777 [facility] PIN 9 [facility] CHORIONIC INC INC QUANTITAT JOEL BLOOD 95695 [facility] COUNT 9 [facility] COMPLETE INC INC AUTO&AUTO DIFRNTL WBC TB CELL 84268 A C FÁTIMA, Pau MEDIATED 9 FÁTIMA Taylor ANTIGN PSC RESPNSE GAMMA INTERFERO N URNLS DIP 48582 [facility] 9 [facility] STICK/TAB INC INC LET REAGENT AUTO MICROSCOP Y GONADOTRO 87500 [facility] PIN 9 [facility] CHORIONIC INC INC QUANTITAT JOEL [place] PREG 53984 [place] GRIS, UTERUS 9 MEDICAL LAYA P REAL TIME IMAGING W/IMAGE ASSOCIATE DCMTN S TRANSVAG CULTURE 53179 [facility] BACTERIAL 9 [facility] INC INC QUANTTATI VE COLONY COUNT URINE BLOOD 57752 [facility] COUNT 9 [facility] COMPLETE INC INC AUTO&AUTO DIFRNTL WBC URINE 60603 [facility] 9 [facility] TEST INC [place] [address] [facility] HEAD/BRAI 8 [facility] N W/O INC INC CONTRAST MATERIAL 3D 76478 [facility] RENDERING 8 [facility] W/INTERP INC INC & POSTPROCE SS SUPERVISI ON LEVEL III 02515 PATHOLOGY PATHOLOGY SURG 8 & & PATHOLOGY CYTOLOGY CYTOLOGY LAB LAB GROSS&DRAKE ROSCOPIC EXAM ANESTHESI 29087 Pau GONZALEZ ANESTHESI ASHLEY INTRAORAL A GROUP WITH PSC BIOPSY NOS TONSILLEC 36523 [facility] 8 [facility] ECONDARY AGE 14/> COLLECTIO 22690 [facility] N VENOUS 8 [facility] VENIPUNCT URE BLOOD 70448 [facility] 8 [facility] T GONADOTRO 76993 [facility] PIN 8 [facility] QUALITATI VE BLOOD 60262 [facility] COUNT [address] [facility] IN[facility]0696 [facility] CEFTRIAXO PSC NE SODIUM PER 250 MG INJECTION J1100 [facility] DEXAMETHO PSC SONE SODIUM PHOSPHATE 1 MG IAADIADOO 02478 [facility] STREPTOCO PSC CCUS GROUP A Encounters Encounter Start End Date Code Location Performer Type Date [facility] - 7 7 [facility] OUTPATIEN INC T OFFICE 07612 [facility] DANY HOWE 7 7 PHYSICIAN T VISIT S GROUP 15 MINUTES OFFICE 97565 [facility]EN[facility] OUTPATIEN 7 7 PHYSICIAN T VISIT S GROUP 15 MINUTES [facility]OSPITAL [facility] - 7 7 [facility] OUTPATIEN INC T OFFICE 21039 [facility] OUTPATIEN 7 7 PHYSICIAN T VISIT S GROUP 15 MINUTES EMERGENCY 38746 [facility] KUMAR DEPT 7 7 PHYSICIAN U VISIT S, PLLC HIGH SEVERITY& THREAT [facility] - 7 7 [facility] OUTPATIEN INC T OFFICE 38219 [facility] OUTPATIEN 7 7 PHYSICIAN T VISIT S GROUP 15 MINUTES OFFICE 76948 [facility] OUTPATIEN 7 7 PHYSICIAN T VISIT S GROUP 15 MINUTES OFFICE 13453 [facility] OUTPATIEN 7 7 PHYSICIAN T VISIT S GROUP 15 MINUTES HOSPITAL [facility] - 7 7 [facility] OUTPATIEN INC T OFFICE 18630 [facility] OUTPATIEN 7 7 PHYSICIAN T VISIT S GROUP 25 MINUTES OFFICE 80255 [facility] [place] OUTPATIEN 7 7 PHYSICIAN T VISIT GROUP 25 MINUTES EMERGENCY 51574 [facility] 6 6 [facility] DEPARTMEN INC T VISIT LOW/MODER SEVERITY EMERGENCY 74473 [facility] CAMEJO 6 6 [facility] SE[facility] - 6 6 [facility] OUTPATIEN INC T EMERGENCY 82744 [facility] DIAZ 6 6 PHYSICIAN [place] [facility]PARTMEN S[facility] SEVERITY [facility] - 6 6 MEM [facility] OUTPATIEN INC T EMERGENCY [id number] [facility] 6 6 [facility] DEPARTMEN INC T VISIT LOW/MODER SEVERITY OFFICE 53711 [facility] ANDREW OUTPATIEN 6 6 PHYSICIAN SANTANA T VISIT S GROUP 15 MINUTES HOSPITAL [facility] - 5 5 [facility] INPATIENT INC OFFICE 99154 [facility] SAENZ OUTPATIEN 5 5 PHYSICIAN DWAYNE T VISIT S GROUP 15 MINUTES OFFICE 22367 [facility] SAENZ OUTPATIEN 5 5 PHYSICIAN DWAYNE T VISIT S GROUP 15 MINUTES OFFICE 34315 [facility] SAENZ OUTPATIEN 5 5 PHYSICIAN DWAYNE T VISIT S GROUP 15 MINUTES OFFICE 03471 [facility] SAENZ OUTPATIEN 5 5 PHYSICIAN DWAYNE T VISIT S GROUP 15 MINUTES [facility]OSPITAL [facility] - 5 5 [facility] OUTPATIEN INC T OFFICE 72353 [facility] SAEZN OUTPATIEN 5 5 PHYSICIAN DWAYNE T VISIT S GROUP 15 MINUTES OFFICE 43557 [facility] SAENZ OUTPATIEN 5 5 PHYSICIAN DWAYNE T VISIT S GROUP 15 MINUTES OFFICE 15166 [facility] SAENZ OUTPATIEN 5 5 PHYSICIAN DWAYNE T VISIT S GROUP 15 MINUTES HOSPITAL [facility] - 5 5 [facility] OUTPATIEN INC T OFFICE 71782 [facility] SAENZ OUTPATIEN 5 5 PHYSICIAN DWAYNE T VISIT S GROUP 15 MINUTES OFFICE 85525 [facility] SAENZ OUTPATIEN 5 5 PHYSICIAN DWAYNE T VISIT S GROUP 15 MINUTES HOSPITAL [facility] - 5 5 [facility] OUTPATIEN INC T OFFICE 58560 [facility] SAENZ OUTPATIEN 5 5 PHYSICIAN DWAYNE T VISIT S GROUP 15 MINUTES OFFICE 12573 RENE MILLAN OUTPATIEN 5 5 YANA KULKARNI RODRIGUE T VISIT 15 MINUTES [facility]OSP[facility] - 4 4 [facility] OUTPATIEN [facility] T [facility] - 4 4 [facility] INPATIENT INC OFFICE 43761 [facility] SAENZ OUTPATIEN 4 4 PHYSICIAN DWAYNE T VISIT S GROUP 15 MINUTES OFFICE 12948 CONGREGATIONRick MELENDEZ OUTPATIEN 4 4 EXPRESS DON T NEW 30 CARE MINUTES OFFICE 24181 [facility] DANY OUTPATIEN 4 4 PHYSICIAN DWAYNE T VISIT S GROUP 15 MINUTES HOSPITAL [facility] - 4 4 [facility] OUTPATIEN INC T EMERGENCY 00592 [facility] DEPT 4 4 RENU VISIT EMERGENCY HIGH PHYS SEVERITY& THREAT FUNCJ OFFICE 59647 [facility] DANY OUTMICHELLEEN 4 4 PHYSICIAN DWAYNE T VISIT S GROUP 15 MINUTES HOSPITAL [facility] - 4 4 [facility] OUTPATIEN INC T EMERGENCY 67188 [facility] 4 4 [facility] DEPARTMEN INC T VISIT MODERATE SEVERITY EMERGENCY 86375 [facility] DEPT 4 4 RENU MOH VISIT EMERGENCY HIGH PHYS SEVERITY& THREAT FUNCJ OFFICE 03418 [facility] SAENZ OUTMICHELLEEN 4 4 DWAYNE DWAYNE T VISIT 25 MINUTES HOSPITAL [facility] - 4 4 [facility] OUTPATIEN INC T EMERGENCY 61030 [facility] 4 4 RENU DEPARTMEN EMERGENCY T VISIT PHYS HIGH/URGE NT SEVERITY EMERGENCY 52801 [facility] 4 4 [facility] DEPARTMEN INC T VISIT MODERATE SEVERITY EMERGENCY 08033 [facility] 4 4 [facility] DEPARTMEN INC T VISIT HIGH/URGE NT SEVERITY [facility] - 4 4 [facility] OUTPATIEN INC T EMERGENCY 32440 [facility] DEPT 4 4 RENU VISIT EMERGENCY HIGH PHYS SEVERITY& THREAT FUNCJ OFFICE 24744 [facility] DEPT 10 [place] MINUTES OFFICE 00810 [facility] [place] OUTPATIEN 1 1 FÁTIMA KULKARNI T VISIT PSC 10 MINUTES OFFICE 51031 [facility] OUTPATIEN 1 1 [facility] T VISIT 5 CENTER CENTER MINUTES OFFICE 35864 [facility] OUTPATIEN 1 1 [facility] T VISIT CENTER CENTER 10 MINUTES PERIODIC 67554 A Claudia Mai PREVENTIV 1 1 FÁTIMA KULKARNI E MED EST PSC PATIENT S OFFICE 11274 A Claudia Mai OUTPATIEN 0 0 FÁTIMA KULKARNI T VISIT PSC 15 MINUTES OFFICE 59144 [facility] CANALES OUTPATIEN 0 0 FÁTIMA Taylor T VISIT [facility] 15 MINUTES PERIODIC 42052 [facility] CANALES PREVENTIV 0 0 FÁTIMA Taylor E MED EST PSC PATIENT 06-14YRS [facility] - 0 0 [facility] OUTPATIEN INC T EMERGENCY 17146 FRANCOIS FOSS, DEPT 0 0 EMERGENCY HARISH S VISIT SERVICES HIGH SEVERITY& ASSOCIATE THREAT S [facility] - 9 9 [facility] OUTPATIEN INC T EMERGENCY 81195 FRANCOIS FOSS, DEPT 9 9 EMERGENCY HARISH S VISIT SERVICES HIGH SEVERITY& ASSOCIATE THREAT S [facility] EMERGENCY 35387 [facility] 9 9 [facility] DEPARTMEN INC T VISIT MODERATE SEVERITY OFFICE 16554 [facility] CANALES OUTPATIEN 9 9 FÁTIMA KULKARNI C T NEW 30 PSC MINUTES EMERGENCY 70505 [facility] 9 9 [facility] DEPARTMEN INC T VISIT HIGH/URGE NT SEVERITY [facility]OSPITAL [facility] - 9 9 [facility] OUTPATIEN INC T EMERGENCY 86949 FRANCOIS FOSS, DEPT 9 9 EMERGENCY HARISH S VISIT SERVICES HIGH SEVERITY& ASSOCIATE THREAT S [facility] OFFICE 60105 CARLEY CLARKE 9 9 CLINIC [facility] T VISIT PSC 15 MINUTES PERIODIC 58643 KODI DAY PREVENTIV 9 9 [facility]IN[facility] E MED EST PSC PATIENT 12-17YRS EMERGENCY 81479 [facility] 8 8 [facility] DEPARTMEN INC T VISIT MODERATE SEVERITY [facility] - 8 8 [facility] OUTPATIEN INC T EMERGENCY 27906 NANCY GONZALEZ, 8 8 [facility] T VISIT ON HIGH/URGE NT SEVERITY HOSPITAL Y[facility] - 8 8 [facility] T EMERGENCY 82612 YANCI 8 8 [facility] T VISIT LIMITED/M INOR PROB [facility] [place] - [address] [facility] VER[facility] - 8 8 [facility] T EMERGENCY 79007 KODI DAY, 8 8 [facility] VISIT LOW/MODER SEVERITY OFFICE 84351 JADA ELIAS OUTPATIEN 8 8 JOHN Pineda T VISIT 15 MINUTES OFFICE 15039 CARLEY CLARKE 8 8 CLINIC [facility] T VISIT PSC 15 MINUTES OFFICE 81573 JADA ELIAS OUTPATIEN 8 8 JOHN Pineda T NEW 30 MINUTES OFFICE 03161 CARLEY CLARKE 8 8 CLINIC [facility] T VISIT PSC 15 MINUTES
--- OUTSIDE RECORDS SUMMARY | 2017-04-29 11:03 | External Medical Summary Rpt ---
Author Author VALERIEGEORGE Connell, MICHAEL [employer] Organization [employer] Address Unknown Phone Unavailable Results Ziito-7-Qzpnroptsdaqq.placental [Presence] in Vaginal fluid Observa Value Referen Units Interpr Notes Date tion ce etation Range Alpha-1 NEGATIV No No No No Mar 27 -Microg E FOR informa informa informa informa 2017 lobulin RUPTURE tion in tion in tion in tion in 8:50 PM .placen source source source source dana data data data data [Presen ce] in Vaginal fluid Choriogonadotropin.beta subunit ( test) [Presence] in Serum or Plasma Observa Value Referen Units Interpr Notes Date tion ce etation Range Choriog 47016.4 No mIU/ML No NON-PRE Dec 28 onadotr informa informa GNANT 2017 opin.be tion in tion in FEMALES 11:00 ta source source PM subunit data data REFEREN CE (pregna RANGE = ncy 0 - 6 test) mIU/mLG [Presen estatio ce] in nal Age Serum or HCG Plasma RANGE0. 2 WEEKS 5 - 501-2 WEEKS 50 - 5002-3 WEEKS 100 - 5,0003- 4 WEEKS 500 - 10,0004 -5 WEEKS 1,000 - 50,0005 -6 WEEKS 10,000 - 100,000 6-8 WEEKS 15,000 - 200,000 2-3 MONTHS 10,000 - 100,000 Comprehensive metabolic 2000 panel in Serum or Plasma Observa Value Referen Units Interpr Notes Date tion ce etation Range Albumin/G 1.1 - 1.8 No Low No Dec 28 lobulin informati informati 2016 [Mass on in on in 11:00 PM ratio] in source source Serum or data data Plasma Albumin 3.4 - 5.0 gm/dL Normal No Dec 28 [Mass/vol informati 2017 ume] in on in 11:00 PM Serum or source Plasma data Alkaline 46 - 116 U/L Normal No Dec 28 phosphata informati 2017 se on in 11:00 PM [Enzymati source c data activity/ volume] in Serum or Plasma Bilirubin 0.2 - 1.0 mg/dL Low No Dec 2 .total informati 2016 [Mass/vol on in 11:00 PM ume] in source Serum or data Plasma Urea 7 - 18 mg/dL Normal No Dec 2 nitrogen informati 2016 [Mass/vol on in 11:00 PM ume] in source Serum or data Plasma Calcium 8.5 - mg/dL Normal No Dec 28 [Mass/vol 10.1 informati 2017 ume] in on in 11:00 PM Serum or source Plasma data Chloride 98 - 107 mmoL/L Normal No Dec 28 [Moles/vo informati 2017 lume] in on in 11:00 PM Serum or source Plasma data Carbon 21.0 - mmoL/L Normal No Dec 28 dioxide, 32.0 informati 2016 total on in 11:00 PM [Moles/vo source lume] in data Serum or Plasma Creatinin 0.55 - mg/dL Normal No Dec 28 e 1.02 informati 2016 [Mass/vol on in 11:00 PM ume] in source Serum or data Plasma Creatinin 50 - 200 ML/MIN Normal No Dec 2 e renal informati 2016 clearance on in 11:00 PM source predicted data by Cockcroft -Gault formula Estimated 59- ML/MIN No REFERENCE Dec 28 informati RANGE: 2017 glomerula on in >60 11:00 PM r source ML/MIN/1. filtratio data 73 SQUARE n rate METERSIf (GF this patient is -A merican, then multiply theresult by 1.210. Globulin 1.3 - 3.2 gm/dL High No Dec 28 [Mass/vol informati 2017 ume] in on in 11:00 PM Serum source data Glucose 74 - 106 mg/dL Normal No Dec 2 [Mass/vol informati 2017 ume] in on in 11:00 PM Serum or source Plasma data Potassium 3.5 - 5.1 mmoL/L Low No Dec 28 informati 2016 [Moles/vo on in 11:00 PM lume] in source Serum or data Plasma Sodium 136 - 145 mmoL/L Low No Dec 28 [Moles/vo informati 2017 lume] in on in 11:00 PM Serum or source Plasma data Aspartate 15 - 37 U/L Normal No Dec 28 informati 2017 aminotran on in 11:00 PM sferase source [Enzymati data c activity/ volume] in Serum or Plasma Alanine 12 - 78 U/L Normal No Dec 28 aminotran informati 2017 sferase on in 11:00 PM [Enzymati source c data activity/ volume] in Serum or Plasma Protein 6.4 - 8.2 gm/dL Normal No Dec 2 [Mass/vol informati 2016 ume] in on in 11:00 PM Serum or source Plasma data Urinalysis dipstick W Reflex Microscopic panel in Urine Observa Value Referen Units Interpr Notes Date tion ce etation Range Appeara SL CLEAR No No No Dec 28 nce of CLOUDY informa informa informa 2016 Urine tion in tion in tion in 11:00 source source source PM data data data Bilirub NEGATIV NEG No No No Dec 28 in E informa informa informa 2016 [Presen tion in tion in tion in 11:00 ce] in source source source PM Urine data data data by Test strip Erythro NEGATIV NEG No No No Dec 28 cytes E informa informa informa 2016 [Presen tion in tion in tion in 11:00 ce] in source source source PM Urine data data data Color YELLOW YELLOW No No No Dec 28 of informa informa informa 2016 Urine tion in tion in tion in 11:00 source source source PM data data data Glucose NEG No No No Dec 28 [Mass/vol informati informati informati 2016 ume] in on in on in on in 11:00 PM Urine by source source source Test data data data strip Ketones NEGATIV NEG mg/dL No No Dec 28 E informa informa 2016 [Presen tion in tion in 11:00 ce] in source source PM Urine data data by Automat ed test strip Mucus TRACE NEG No Abnorma No Dec 28 [Presen informa l informa 2016 ce] in tion in tion in 11:00 Urine source source PM sedimen data data t by Light microsc opy Nitrite NEGATIV NEG No No No Dec 28 E informa informa informa 2016 [Presen tion in tion in tion in 11:00 ce] in source source source PM Urine data data data by Test strip pH of 5.0 - 8.5 No Normal No Dec 28 Urine informati informati 2017 on in on in 11:00 PM source source data data Protein NEG mg/dL No No Dec 2 [Mass/vol informati informati 2017 ume] in on in on in 11:00 PM Urine by source source Automated data data test strip Specific 1.005 - No Normal No Dec 28 gravity 1.030 informati informati 2017 of Urine on in on in 11:00 PM source source data data Urobili 0.2 NEG E.U./dL No No Dec 28 nogen informa informa 2016 [Presen tion in tion in 11:00 ce] in source source PM Urine data data by Test strip Urinalysis dipstick W Reflex Microscopic panel in Urine Observa Value Referen Units Interpr Notes Date tion ce etation Range Appeara SL CLEAR No No No Dec 28 nce of CLOUDY informa informa informa 2016 Urine tion in tion in tion in 11:00 source source source PM data data data Bilirub NEGATIV NEG No No No Dec 28 in E informa informa informa 2016 [Presen tion in tion in tion in 11:00 ce] in source source source PM Urine data data data by Test strip Erythro NEGATIV NEG No No No Dec 28 cytes E informa informa informa 2016 [Presen tion in tion in tion in 11:00 ce] in source source source PM Urine data data data Color YELLOW YELLOW No No No Dec 28 of informa informa informa 2016 Urine tion in tion in tion in 11:00 source source source PM data data data Glucose NEG No No No Dec 28 [Mass/vol informati informati informati 2016 ume] in on in on in on in 11:00 PM Urine by source source source Test data data data strip Ketones NEGATIV NEG mg/dL No No Dec 28 E informa informa 2016 [Presen tion in tion in 11:00 ce] in source source PM Urine data data by Automat ed test strip Mucus TRACE NEG No Abnorma No Dec 28 [Presen informa l informa 2016 ce] in tion in tion in 11:00 Urine source source PM sedimen data data t by Light microsc opy Nitrite NEGATIV NEG No No No Dec 28 E informa informa informa 2016 [Presen tion in tion in tion in 11:00 ce] in source source source PM Urine data data data by Test strip pH of 5.0 - 8.5 No Normal No Dec 28 Urine informati informati 2016 on in on in 11:00 PM source source data data Protein NEG mg/dL No No Dec 28 [Mass/vol informati informati 2016 ume] in on in on in 11:00 PM Urine by source source Automated data data test strip Specific 1.005 - No Normal No Dec 28 gravity 1.030 informati 2016 of Urine on in on in 11:00 PM source source data data Epithel 20-50 0 - 5 #/hpf No No Dec 28 ial informa informa 2016 cells.s tion in tion in 11:00 quamous source source PM data data [Presen ce] in Urine sedimen t by Microsc opy high power field Urobili 0.2 NEG E.U./dL No No Dec 28 nogen informa inform2016 [Presen tion in tion in 11:00 ce] in source source PM Urine data data by Test strip Leukocy [5 O wbc/hpf No No Dec 28 pattie wbc/hpf informa inform2016 [#/volu ; 10 tion in tion in 11:00 me] in wbc/hpf source source PM Urine ] data data CBC W Auto Differential panel in Blood Observa Value Referen Units Interpr Notes Date tion ce etation Range Basophils 0 - 0.2 K/MM3 Normal No Dec 282016 [#/volume on in 11:00 PM ] in source Blood by data Automated count Basophils 0.1 - 2.0 % Normal No Dec 282016 leukocyte on in 11:00 PM s in source Blood by data Automated count Eosinophi 0.0 - 0.4 K/mm3 Normal No Dec 28 ls 2016 [#/volume on in 11:00 PM ] in source Blood by data Automated count Eosinophi 0.1 - % Normal No Dec 28 ls/100 12.0 inform2016 leukocyte on in 11:00 PM s in source Blood by data Automated count Granulocy 1.8 - 7.8 K/mm3 Normal No Dec 28 ptatie informati 2016 [#/volume on in 11:00 PM ] in source Blood by data Automated count Granulocy 37.0 - % Normal No Dec 28 pattie/100 80.0 2016 leukocyte on in 11:00 PM s in source Blood by data Automated count Hematocri 37.0 - % Low No Dec 28 t [Volume 47.0 informati 2016 on in 11:00 PM Fraction] source of Blood data Hemoglobi 12.2 - g/dL Low No Dec 28 n 16.2 informati 2016 [Mass/vol on in 11:00 PM ume] in source Blood data Lymphocyt 0.7 - 4.5 K/mm3 Normal No Dec 28 es informati 2016 [#/volume on in 11:00 PM ] in source Unspecifi data ed specimen by Automated count Lymphocyt 10 - 50.0 % Normal No Dec 28 es informati 2016 [#/volume on in 11:00 PM ] in source Unspecifi data ed specimen by Automated count Erythrocy 27 - 31.2 pg Normal No Dec 28 te mean 2016 corpuscul on in 11:00 PM ar source hemoglobi data n [Entitic mass] Erythrocy 31.8 - g/dl Normal No Dec 28 te mean 35.4 2016 corpuscul on in 11:00 PM ar source hemoglobi data n concentra tion [Mass/vol ume] by Automated count Erythrocy 82.2 - fl Normal No Dec 28 te mean 97.8 informati 2016 corpuscul on in 11:00 PM ar volume source [Entitic data volume] by Automated count Monocytes 0.1 - 1.0 K/mm3 Normal No Dec 282016 [#/volume on in 11:00 PM ] in source Blood by data Automated count Monocytes 1.7 - 9.3 % Normal No Dec 2 /100 2016 leukocyte on in 11:00 PM s in source Blood by data Automated count Platelet 7.4 - fl Normal No Dec 28 mean 10.4 2016 volume on in 11:00 PM [Entitic source volume] data in Blood by Automated count Platelets 142 - 424 K/mm3 Normal No Dec 28 informati 2016 [#/volume on in 11:00 PM ] in source Blood data Erythrocy 4.2 - 5.4 M/mm3 Low No Dec 28 pattie informati 2016 [#/volume on in 11:00 PM ] in source Amniotic data fluid Erythrocy 11.5 - % Normal No Dec 28 te 17.5 2016 distribut on in 11:00 PM ion width source [Entitic data volume] by Automated count Leukocyte 4.8 - K/MM3 High No Dec 28 s 10.8 informati 2017 [#/volume on in 11:00 PM ] in source Blood data CHLAMYDIA AND GONORRHEA TESTING Observa Value Referen Units Interpr Notes Date tion ce etation Range COLLECT NA No No No No Dec 08 OR informa informa informa informa 2012 tion in tion in tion in tion in 11:00 source source source source AM data data data data ETHNICI WHITE, No No No No Dec 08 TY NON-HIS informa informa informa informa 2012 PANIC tion in tion in tion in tion in 11:00 source source source source AM data data data data KIT 07/29/12 No No No No Dec 08 EXPIRAT informa informa informa informa 2012 ION tion in tion in tion in tion in 11:00 DATE source source source source AM data data data data SYMPTOM NO No No No No Dec 08 S informa informa informa informa 2012 tion in tion in tion in tion in 11:00 source source source source AM data data data data REASON INITIAL No No No No Dec 08 FOR FAMILY informa informa informa informa 2012 REQUEST tion in tion in tion in tion in 11:00 PLANNIN source source source source AM G VISIT data data data data SPECIME FEMALE No No No No Dec 08 N ENDOCER informa informa informa informa 2012 SOURCE VICAL tion in tion in tion in tion in 11:00 source source source source AM data data data data PREGNAN NO No No No No Dec 08 T informa informa informa informa 2012 tion in tion in tion in tion in 11:00 source source source source AM data data data data CHART NA No No No No Dec 08 NUMBER informa informa informa informa 2012 tion in tion in tion in tion in 11:00 source source source source AM data data data data Chlamyd POSITIV No No No NEGATIV Dec 08 ia E informa informa informa E 2012 trachom tion in tion in tion in RESULT= 11:00 atis source source source WITHIN AM rRNA data data data NORMAL [Presen ce] in LIMITSP Unspeci OSITIVE fied specime RESULT= n by Probe & ABNORMA target LEQUIVO ANDREINA amplifi RESULT= cation method INDETER MINATEU NSATISF ACTORY RESULT= INVALID Neisser NEGATIV No No No NEGATIV Dec 08 ia E informa informa informa E 2012 gonorrh tion in tion in tion in RESULT= 11:00 oeae source source source WITHIN AM rRNA data data data NORMAL [Presen ce] in LIMITSP Unspeci OSITIVE fied specime RESULT= n by Probe & ABNORMA target LEQUIVO ANDREINA amplifi RESULT= cation method INDETER MINATEU NSATISF ACTORY RESULT= INVALID EFFECTI VE NOVEMBE R 2009: THE APTIMA COMBO 2 NUCLEIC ACIDAMP LIFICAT ION ASSAY IS NOT INTENDE D FOR THE EVALUAT ION OFSUSPE CTED SEXUAL ABUSE OR FOR OTHER MEDICO- LEGAL INDICAT IONS.FA LSE POSITIV E RESULTS ARE POSSIBL E.\.br\ This report contain s patient informa tion that must be protect ed in accorda nce with the Health Insuran ce Portabi lity and Account ability Act. CHLAMYDIA AND GONORRHEA TESTING Observa Value Referen Units Interpr Notes Date tion ce etation Range COLLECT NA No No No No Dec 08 OR informa informa informa informa 2012 tion in tion in tion in tion in 11:00 source source source source AM data data data data ETHNICI WHITE, No No No No Dec 08 TY NON-HIS informa informa informa informa 2012 PANIC tion in tion in tion in tion in 11:00 source source source source AM data data data data KIT 07/29/12 No No No No Dec 08 EXPIRAT informa informa informa informa 2012 ION tion in tion in tion in tion in 11:00 DATE source source source source AM data data data data SYMPTOM NO No No No No Dec 08 S informa informa informa informa 2012 tion in tion in tion in tion in 11:00 source source source source AM data data data data REASON INITIAL No No No No Dec 08 FOR FAMILY informa informa informa informa 2012 REQUEST tion in tion in tion in tion in 11:00 PLANNIN source source source source AM G VISIT data data data data SPECIME FEMALE No No No No Dec 08 N ENDOCER informa informa informa informa 2012 SOURCE VICAL tion in tion in tion in tion in 11:00 source source source source AM data data data data PREGNAN NO No No No No Dec 08 T informa informa informa informa 2012 tion in tion in tion in tion in 11:00 source source source source AM data data data data CHART NA No No No No Dec 08 NUMBER informa informa informa informa 2012 tion in tion in tion in tion in 11:00 source source source source AM data data data data Chlamyd Pending No No No No Dec 08 ia informa informa informa informa 2012 trachom tion in tion in tion in tion in 11:00 atis source source source source AM rRNA data data data data [Presen ce] in Unspeci fied specime n by Probe & target amplifi cation method Neisser Pending No No No \.br\Dec 08 ia informa informa informa is 2012 gonorrh tion in tion in tion in report 11:00 oeae source source source contain AM rRNA data data data s [Presen patient ce] in Unspeci informa fied tion specime that n by must be Probe & target protect ed in amplifi accorda cation nce method with the Health Insuran ce Portabi lity and Account ability Act.
--- OUTSIDE RECORDS SUMMARY | 2017-04-29 11:03 | External Medical Summary Rpt | CCD ---
Author Author , MICHAEL RODRIGUEZ Address Unknown Phone [email or web address] Immunization Name Date Rout CVX Reac Dose Comm Prov Is Faci e tion ent ider Refu lity Give sed n Hep 04-0 8 999 Hist H191 No H191 B, 6-20 oric ped/ 04 al adol Info rmat ion - Sour ce Unsp ecif ied Td 04-0 9 999 Hist H191 No H191 (jono 6-20 oric lt), 04 al Info adso rmat rbed ion - Sour ce Unsp ecif ied
--- OUTSIDE RECORDS SUMMARY | 2017-04-29 11:03 | External Medical Summary Rpt | CCD ---
Author Author , MICHAEL RODRIGUEZ Address Unknown Phone [email or web address] Immunization Name Date Rout CVX Reac Dose [...]
--- OUTSIDE RECORDS SUMMARY | 2017-04-29 11:03 | External Medical Summary Rpt ---
Author Author VALERIEGEORGE Connell, MICHAEL [employer] Organization [employer] Address Unknown Phone Unavailable Results [id number].placental [Presence] in Vaginal fluid Observa Value Referen [...] Notes Date tion ce etation Range Choriog 19982.4 No mIU/ML No NON-PRE Dec 28 onadotr [...] - 7.8 K/mm3 Normal No Dec 28 pattie informati 2016 [#/volume [...]
[2017-04-29 11:20] VITALS: BP 107/68
[2017-04-29 16:18] LABS: URINE BILIRUBIN - DIPSTICK NEGATIVE (NEG); URINE BLOOD TRACE-LYSED (NEG)
[2017-04-29 16:30] LABS: URINE SQUAMOUS CELLS TNTC #/hpf (0-5)
--- NOTE | 2017-04-29 16:55 | ACUTE CARE PROGRESS NOTE (QUA) ---
Progress Notes Subjective Date 04/29/17 Time 1652 Note She is a 26-year-old 2 para 1 at 35 and 1 weeks gestational age. She has been followed for oligohydramnios. She had an ultrasound today that showed an amniotic fluid index of 5.8. This is lower than what it was a couple of days ago. She has been seen in consultation with [facility] and after discussing with them today we aren't admitting her for IV hydration to see if this would help with the amniotic fluid level. We will see how she does over the next 24 hours and repeat her amniotic fluid index tomorrow afternoon. If she continues to have low fluids by Thursday then we will transfer her to [facility]. Patient/family reports: feeling better, no complaints Objective Findings Last VS-Temp:97.6 B/P:107/68 Pulse:83 Resp:18 SaO2: Last weight lbs:154 oz:0 K.854 Method:Floor Scales Exam General appearance: normal appearance, alert, awake, no acute distress Reviewed: vital signs Assessment/Plan Problem List 1. Oligohydramnios in third trimester Patient condition Stable Plan: continue current care This inpt stay is expected to cross 2 MNs from start of care No Comments: We will plan to rehydrate her over the next 24-48 hours. at 1425
[2017-04-29 19:30] VITALS: BP 107/73
[2017-04-30 08:00] VITALS: BP 111/77
--- NOTE | 2017-04-30 08:56 | ACUTE CARE PROGRESS NOTE (QUA) ---
Progress Notes Subjective Date 04/30/17 Time 0853 Note She is doing well and her nonstress test is reactive. She has an occasional contraction at times. There are no regular contractions. We are giving her fluids to see if we can increase the amniotic fluid level. We will repeat her ultrasound later on this afternoon. She has some abdominal pain and she didn't sleep very much last night so I have given her some Percocets. She had some Zofran admitted overnight for nausea. Patient/family reports: feeling better, pain Objective Findings Last VS-Temp:97.9 B/P:107/73 Pulse:94 Resp:16 SaO2: Last weight lbs:154 oz:0 K.854 Method:Floor Scales Exam General appearance: normal appearance, alert, awake, no acute distress Reviewed: vital signs Assessment/Plan Problem List 1. Oligohydramnios in third trimester Patient condition Stable Plan: continue current care This inpt stay is expected to cross 2 MNs from start of care No Comments: We will continue with her IV fluids and also repeat her ultrasound later this afternoon. If she continues to have oligohydramnios we will send her down to [facility]. at [phone]
--- NOTE | 2017-04-30 18:05 | Discharge Summary ---
Discharge Summary Admission date: 04/29/17 Discharge date: 04/30/17 Discharge diagnoses: Oligohydramnios Clinical note: She is a 26 2 para 1 who is 35 weeks gestational age. She was seen in my office and has been followed over the last couple of weeks with oligohydramnios. We tried giving her oral hydration and this didn't increase her fluid levels so we elected to admit her for IV fluids. Course in hospital: She was started on IV fluids and was also encouraged to drink lots of fluids. Her nonstress test is reactive. An ultrasound this evening showed that the amniotic fluid index has not really improved. It's somewhere between 3.8 and 5.8. I have spoken with Dr. Holland at [facility] and she will see him tomorrow morning in his office. She really would like to go home this evening and will drive to the office tomorrow. Since her nonstress test has been reactive I think she is low risk for stillbirth. Plans for ongoing care: She is discharged home to follow-up with me next week. Discharge medications She will continue with her vitamins and iron. DC/follow-up instructions She was given the usual instructions to limit her activity and drinking plenty of fluids. Condition at discharge Stable at 1807
--- NOTE | 2017-05-06 09:56 | RADIOLOGY REPORT PS360 ---
US US BIOPHYSICAL PROFILE: INDICATION: Limited study for biophysical profile and evaluate cortical hydramnios OLIGO HYDRAMNIOS, BPP PLUS FLUID LEVEL ORDERING PHYSICIAN: Brendan Cain MD PATIENT AGE: 26 years TECHNIQUE: ultrasound transabdominal scanning. COMPARISON: Previous ultrasound complete dated 04/21/2017. FINDINGS: Single viable intrauterine gestation. Only limited survey of the fetus showed active fetus in Cephalic position.. Three-vessel cord more difficult to visualize but again slightly straightened appearance suggested Placenta: Anterior placenta. Heartbeat documented 155. Amniotic fluid diminished./= OligohydramniosTotal SHERRIE = 2.71 . However r Largest fluid pocket LUQ = 2.73 cm. Which meets the 2+ scoring criteria for biophysical profile BIOPHYSICAL PROFILE: Biophysical profile score: 8/8 breathing movements: 2 Gross body movements: 2 Tone: 2 Amniotic fluid volume. 2 ( A pocket greater than 2cm was identified between criteria, however note overall oligohydramnios ) Evaluation of the umbilical artery: SD ratio 2.0 Resistive index = 0.49 . . IMPRESSION: . Cephalic position oligohydramnios. SHERRIE = 2.71. . However biophysical profile: Scoring still still 8 of 8 points ..due to a 2.7 cm pocket fluid LUQ . Active fetus
== END 2017-04-30 18:25 | disposition home or self-care (01) ==
LOC: OB 10:49
PROVIDERS: Nurse Practitioner Obstetrics & Gynecology
DX: O41.03X0 Oligohydramnios, third trimester, not applicable or unspecified (principal); Z3A.35 35 weeks gestation of pregnancy
CPT/HCPCS: G0378; J2405

== ENCOUNTER 2017-05-12 03:00 | Inpatient (IN) | payer MEDICAID ==
[~2017-05-12] VITALS: Ht 160 cm; Wt 70.8 kg
--- OUTSIDE RECORDS SUMMARY | 2017-05-12 03:08 | External Medical Summary Rpt | CCD ---
Author Author , MICHAEL Organization MICHAEL Address Unknown Phone [email or web address] Purpose Continuity of Care Document - 12-09-2011 through 2016 Problems Code Diagnosis DOS Provider Status G43.109 MIGRAINE WITH AURA, NOT INTRACTABLE , W/O STATUS MIGRAINOSUS N92.0 EXCESSIVE AND FREQUENT MENSTRUATIO N WITH REGULAR CYCLE O20.0 THREATENED O21.0 MILD HYPEREMESIS GRAVIDARUM O41.03X0 Oligohydram nios, third trimester, not applicable or unspecified O47.9 FALSE LABOR, UNSPECIFIED O99.89 OTH DISEASES AND CONDITIONS COMPL PREG/CHLDBR TH P05.00 light for gestational age, unspecified weight R11.10 VOMITING, UNSPECIFIED R22.9 LOCALIZED SWELLING, MASS AND LUMP, UNSPECIFIED Z33.1 STATE, INCIDENTAL Z34.90 ENCNTR FOR SUPRVSN OF NORMAL , UNSP, UNSP TRIMESTER Results Labs Lab Lab Date Result Refere Interp Status Commen Order Detail nces retati t Range on Cervicovaginal discharge rapid detection (05-03-2017 17:25) Cervico NEGATIV complet vaginal 017 E FOR ed 17:25 RUPTURE dischar ge NEGATIV rapid E FOR detecti RUPTURE on L Oxlpv-0-Efcrltynvgpuq.placental [Presence] in Vaginal fluid (05-03-2017 17:25) Alpha-1 NEGATIV complet -Microg 017 E FOR ed lobulin 17:25 RUPTURE .placen dana [Presen ce] in Vaginal fluid Antibiotic sensitivity studies (05-02-2017 08:34) Piperac <= 4 complet illin/t 017 ug/ml ed azobact 08:34 am suscept ibility test by minimum inhibit ory concent ration Tobramy <= 1 complet riki 017 ug/ml ed suscept 08:34 ibility test by minimum inhibit ory concent ration Trimeth 11-04-2 <= 20 complet oprim/s 017 ug/ml ed ulfamet 08:34 hoxazol e suscept ibility test by minimum inhibit ory concent ration Ampicil 11-04-2 >= 32 complet annie/sul 017 ug/ml ed bactam 08:34 suscept ibility test by minimum inhibit ory concent ration Levoflo 11-04-2 <= 0.12 complet xacin 017 ug/ml ed suscept 08:34 ibility test by minimum inhibit ory concent ration Imipene 11-04-2 <= 0.25 complet m 017 ug/ml ed suscept 08:34 ibility test by minimum inhibit ory concent ration Gentami 11-04-2 <= 1 complet riki 017 ug/ml ed suscept 08:34 ibility test by minimum inhibit ory concent ration Nitrofu -04-2 <= 16 complet rantoin 017 ug/ml ed 08:34 suscept ibility test by minimum inhibit ory concent ration Cefepim -04-2 <= 1 complet e 017 ug/ml ed suscept 08:34 ibility test by minimum inhibit ory concent ration Ertapen -04-2 <= 0.5 complet em 017 ug/ml ed suscept 08:34 ibility test by minimum inhibit ory concent ration Extende -04-2 = ug/ml complet d 017 ed spectru 08:34 m beta lactama se (ESBL) produci ng bacteri a suscept ibility test by minimum inhibit ory Cefazol -04-2 <= 4 complet in 017 ug/ml ed suscept 08:34 ibility test by minimum inhibit ory concent ration Ceftria -04-2 <= 1 complet xone 017 ug/ml ed suscept 08:34 ibility test by minimum inhibit ory concent ration Ceftazi 11-04-2 <= 1 complet dime/po 017 ug/ml ed tassium 08:34 clavula vicky suscept ibility test by minimum inhibit ory concent ration Amoxici -04-2 = 8 complet llin/cl 017 ug/ml ed avulana 08:34 te suscept ibility test by minimum inhibit ory concent ration Ampicil -04-2 >= 32 complet annie 017 ug/ml ed suscept 08:34 ibility test by minimum inhibit ory concent ration Gram negative automated antibiotic susceptibility test (05-01-2017 06:24) Ampicil <= 2 complet annie 017 ug/ml ed suscept 06:24 ibility test by minimum inhibit ory concent ration Vancomy 2 = 1 complet riki 017 ug/ml ed suscept 06:24 ibility test by minimum inhibit ory concent ration Tetracy >= 16 complet barbosa 017 ug/ml ed suscept 06:24 ibility test by minimum inhibit ory concent ration Penicil = 4 complet annie G 017 ug/ml ed suscept 06:24 ibility test by minimum inhibit ory concent ration Levoflo = 1 complet xacin 017 ug/ml ed suscept 06:24 ibility test by minimum inhibit ory concent ration Nitrofu <= 16 complet rantoin 017 ug/ml ed 06:24 suscept ibility test by minimum inhibit ory concent ration Urinalysis with microscopy (04-29-2017 10:58) Comment: Collected by nurse? Y Comment: Hold specimen in OE? N Urine NEGATIV NEG complet total 017 E ed bilirub 10:58 NEGATIV in E L detecti on by test Bacteri 4+ 4+ L O complet a 017 ed detecti 10:58 on in urine sedimen t by Urine CLEAR CLEAR complet appeara 017 CLEAR L ed nce 10:58 determi nation Urine 20 - 50 O complet leukocy 017 ed pattie 10:58 wbc/hpf count (number /volume ) Urine 0.2 0.2 NEG complet urobili 017 L ed nogen 10:58 E.U./dL detecti on by test str [place] TNTC 0-5 complet s 017 TNTC L ed epithel 10:58 #/hpf ial cells detecti on in u Urine = 1.025 1.005-1 complet specifi 017 .030 ed c 10:58 gravity measure ment Erythro OCC OCC 0 complet cytes 017 L ed detecti 10:58 rbc/hpf on in urine sedimen t Urine = NEG complet protein 017 NEGATIV ed 10:58 E mg/dL measure ment by automat ed t Urine YELLOW YELLOW complet color 017 YELLOW ed 10:58 L Urine TRACE-L NEG complet blood 017 YSED ed detecti 10:58 TRACE-L on YSED L Urine = 6.0 5.0-8.5 complet pH 017 ed 10:58 Urine NEGATIV NEG complet nitrite 017 E ed 10:58 NEGATIV detecti E L on by test strip Mucus 2+ 2+ L NEG complet detecti 017 ed on in 10:58 urine sedimen t by lig Urine NEGATIV NEG complet ketones 017 E ed 10:58 NEGATIV detecti E L on by mg/dL automat ed pattie Glucose = NEG complet ur 017 NEGATIV ed test 10:58 E strip Urine culture (04-29-2017 10:58) Urine [id number] complet culture 017 07 ed 10:58 Escheri yaz coli SCT EC ESCHERI YAZ COLI L Comment: Comment: * This is a corrected result. * Comment: Comment: A prior result that was reported as final has been changed. Urine [id number] complet culture 017 2 ed 10:58 Enteroc occus faecali s SCT ECFA ENTEROC OCCUS FAECALI S L Urinalysis dipstick W Reflex Microscopic panel in Urine (04-29-2017 10:58) Bacteri 4+ O complet a 017 ed [Presen 10:58 ce] in Urine sedimen t by Light microsc opy Erythro OCC 0 complet cytes 017 ed [Presen 10:58 ce] in Urine sedimen t by Light microsc opy Epithel TNTC 0#/hp complet ial 017 f - ed cells.s 10:58 5#/hp quamous f [Presen ce] in Urine sedimen t by Microsc opy high power field Leukocy 20-50 O complet pattie 017 wbc/hpf ed [#/volu 10:58 me] in Urine Urinalysis dipstick W Reflex Microscopic panel in Urine (04-29-2017 10:58) Appeara CLEAR CLEAR complet nce of 017 ed Urine 10:58 Bilirub NEGATIV NEG complet in 017 E ed [Presen 10:58 ce] in Urine by Test strip Erythro TRACE-L NEG complet cytes 017 YSED ed [Presen 10:58 ce] in Urine Color YELLOW YELLOW complet of 017 ed Urine 10:58 Ketones NEGATIV NEG complet 017 E ed [Presen 10:58 ce] in Urine by Automat ed test strip Mucus 2+ NEG Abnorma complet [Presen 017 l ed ce] in 10:58 Urine sedimen t by Light microsc opy Nitrite NEGATIV NEG complet 017 E ed [Presen 10:58 ce] in Urine by Test strip Urobili 0.2 NEG complet nogen 017 ed [Presen 10:58 ce] in Urine by Test strip Cervicovaginal discharge rapid detection (04-24-2017 20:50) Cervico NEGATIV complet vaginal 017 E FOR ed 20:50 RUPTURE dischar ge NEGATIV rapid E FOR detecti RUPTURE on L Hwlze-3-Mfvbvbqjafczh.placental [Presence] in Vaginal fluid (04-24-2017 20:50) Alpha-1 [...] measure ment by automat ed t Urine = 6.0 5.0-8.5 complet pH 017 ed 19:20 Urine NEGATIV NEG complet nitrite 017 E ed 19:20 NEGATIV detecti E L on by test strip Mucus 1+ 1+ L NEG complet detecti 017 ed on in 19:20 urine sedimen t by lig Urine 1+ 1+ L NEG complet ketones 017 [...] in Serum or Plasma (12-28-2016 23:00) Choriog 58374.4 complet onadotr 017 ed opin.be 23:00 ta [...] Probe & target amplifi cation method Neisser 06-12-2 Pending complet ia 012 ed gonorrh 11:00 oeae rRNA [Presen ce] in Unspeci fied specime n by Probe & target amplifi cation method
--- OUTSIDE RECORDS SUMMARY | 2017-05-12 03:08 | External Medical Summary Rpt | CCD ---
Author Author [employer] Organization [employer] Address Unknown Phone Unavailable Purpose Continuity of Care Document - through 2016
--- OUTSIDE RECORDS SUMMARY | 2017-05-12 03:08 | External Medical Summary Rpt | CCD ---
Author Author , MICHAEL Organization MICHAEL Address Unknown Phone [email or web address] Immunization Name Date Rout CVX Reac Dose Comm Prov Is Faci e tion ent ider Refu lity Give sed n Td 04-0 9 999 Hist H191 No H191 (jono 6-20 ori lt), 04 al Info adso rmat rbed ion - Sour ce Unsp ecif ied Hep 04-0 8 999 Hist H191 No H191 B, 6-20 ori / 04 al adol Info rmat ion - Sour ce Unsp ecif ied
--- OUTSIDE RECORDS SUMMARY | 2017-05-12 03:08 | External Medical Summary Rpt | CCD ---
Author Author , MICHAEL Organization MICHAEL Address Unknown Phone [email or web address] Immunization Name Date Rout CVX Reac Dose [...]
--- OUTSIDE RECORDS SUMMARY | 2017-05-12 03:08 | External Medical Summary Rpt | CCD ---
Author Author , MICHAEL Organization MICHAEL Address Unknown Phone .[email or web address] Purpose Continuity of Care Document - 12-09-2011 [...] rapid E FOR detecti RUPTURE on L Yqcze-6-Fjgntczsmwikd.placental [Presence] in Vaginal fluid (05-03-2017 17:25) Alpha-1 [...] E strip Urine culture (04-29-2017 10:58) Urine [id number] complet culture 017 07 ed 10:58 Escheri yaz coli SCT EC ESCHERI YAZ COLI L Comment: Comment: * This is a corrected result. * Comment: Comment: A prior result that was reported as final has been changed. Urine [id number] complet culture 017 2 ed 10:58 Enteroc [...] rapid E FOR detecti RUPTURE on L Fvhvq-6-Jfldagelorzhk.placental [Presence] in Vaginal fluid (04-24-2017 20:50) Alpha-1 [...] in Serum or Plasma (12-28-2016 23:00) Choriog 10646.4 complet onadotr 017 ed opin.be 23:00 ta [...]
--- OUTSIDE RECORDS SUMMARY | 2017-05-12 03:09 | External Medical Summary Rpt ---
Author Author MICHAEL Connell, MICHAEL [employer] Organization [employer]HAEL [employer] Address Unknown Phone Unavailable Results Gopbg-1-Iiovowojrgbsm.placental [Presence] in Vaginal fluid Observa Value Referen Units Interpr Notes Date tion ce etation Range Alpha-1 NEGATIV No No No No Nov 5 -Microg E FOR informa informa informa informa 2017 lobulin RUPTURE tion in tion in tion in tion in 5:25 PM .placen source source source source dana data data data data [Presen ce] in Vaginal fluid Urinalysis dipstick W Reflex Microscopic panel in Urine Observa Value Referen Units Interpr Notes Date tion ce etation Range Collected by nurse? Y Hold specimen in OE? N Appeara CLEAR CLEAR No No No Nov 1 nce of informa informa informa 2017 Urine tion in tion in tion in 10:58 source source source AM data data data Bacteri 4+ O No No No Nov 1 a informa informa informa 2016 [Presen tion in tion in tion in 10:58 ce] in source source source AM Urine data data data sedimen t by Light microsc opy Bilirub NEGATIV NEG No No No Nov 1 in E informa informa informa 2017 [Presen tion in tion in tion in 10:58 ce] in source source source AM Urine data data data by Test strip Erythro TRACE-L NEG No No No Nov 1 cytes YSED informa informa informa 2017 [Presen tion in tion in tion in 10:58 ce] in source source source AM Urine data data data Color YELLOW YELLOW No No No Nov 1 of informa informa informa 2017 Urine tion in tion in tion in 10:58 source source source AM data data data Glucose NEG No No No Nov 1 [Mass/vol informati informati informati 2017 ume] in on in on in on in 10:58 AM Urine by source source source Test data data data strip Ketones NEGATIV NEG mg/dL No No Nov 1 E informa informa 2017 [Presen tion in tion in 10:58 ce] in source source AM Urine data data by Automat ed test strip Mucus 2+ NEG No Abnorma No Nov 1 [Presen informa l informa 2016 ce] in tion in tion in 10:58 Urine source source AM sedimen data data t by Light microsc opy Nitrite NEGATIV NEG No No No Nov 1 E informa informa informa 2016 [Presen tion in tion in tion in 10:58 ce] in source source source AM Urine data data data by Test strip pH of 5.0 - 8.5 No Normal No Nov 1 Urine informati informati 2017 on in on in 10:58 AM source source data data Protein NEG mg/dL No No Nov 1 [Mass/vol informati informati 2017 ume] in on in on in 10:58 AM Urine by source source Automated data data test strip Erythro OCC 0 rbc/hpf No No Nov 1 cytes informa informa 2016 [Presen tion in tion in 10:58 ce] in source source AM Urine data data sedimen t by Light microsc opy Specific 1.005 - No Normal No Nov 1 gravity 1.030 informati informati 2017 of Urine on in on in 10:58 AM source source data data Epithel TNTC 0 - 5 #/hpf No No Nov 1 ial informa informa 2017 cells.s tion in tion in 10:58 quamous source source AM data data [Presen ce] in Urine sedimen t by Microsc opy high power field Urobili 0.2 NEG E.U./dL No No Nov 1 nogen informa informa 2017 [Presen tion in tion in 10:58 ce] in source source AM Urine data data by Test strip Leukocy [20 O wbc/hpf No No Nov 1 pattie wbc/hpf informa informa 2016 [#/volu ; 50 tion in tion in 10:58 me] in wbc/hpf source source AM Urine ] data data Urinalysis dipstick W Reflex Microscopic panel in Urine Observa Value Referen Units Interpr Notes Date tion ce etation Range Collected by nurse? Y Hold specimen in OE? N Appeara CLEAR CLEAR No No No Nov 1 nce of informa informa informa 2017 Urine tion in tion in tion in 10:58 source source source AM data data data Bilirub NEGATIV NEG No No No Nov 1 in E informa informa informa 2017 [Presen tion in tion in tion in 10:58 ce] in source source source AM Urine data data data by Test strip Erythro TRACE-L NEG No No No Nov 1 cytes YSED informa informa informa 2017 [Presen tion in tion in tion in 10:58 ce] in source source source AM Urine data data data Color YELLOW YELLOW No No No Nov 1 of informa informa informa 2017 Urine tion in tion in tion in 10:58 source source source AM data data data Glucose NEG No No No Nov 1 [Mass/vol informati informati informati 2017 ume] in on in on in on in 10:58 AM Urine by source source source Test data data data strip Ketones NEGATIV NEG mg/dL No No Nov 1 E informa informa 2016 [Presen tion in tion in 10:58 ce] in source source AM Urine data data by Automat ed test strip Mucus 2+ NEG No Abnorma No Nov 1 [Presen informa l informa 2017 ce] in tion in tion in 10:58 Urine source source AM sedimen data data t by Light microsc opy Nitrite NEGATIV NEG No No No Nov 1 E informa informa informa 2016 [Presen tion in tion in tion in 10:58 ce] in source source source AM Urine data data data by Test strip pH of 5.0 - 8.5 No Normal No Nov 1 Urine informati informati 2017 on in on in 10:58 AM source source data data Protein NEG mg/dL No No Nov 1 [Mass/vol informati informati 2017 ume] in on in on in 10:58 AM Urine by source source Automated data data test strip Specific 1.005 - No Normal No Nov 1 gravity 1.030 informati informati 2017 of Urine on in on in 10:58 AM source source data data Urobili 0.2 NEG E.U./dL No No Nov 1 nogen informa informa 2017 [Presen tion in tion in 10:58 ce] in source source AM Urine data data by Test strip Sebuf-5-Pwtewhzvkmvsy.placental [Presence] in Vaginal fluid Observa Value Referen [...] Notes Date tion ce etation Range Choriog 36050.4 No mIU/ML No NON-PRE Dec 28 onadotr [...] gm/dL Normal No Dec 28 [Mass/vol informati 2016 ume] in on in 11:00 PM Serum or source Plasma data Alkaline 46 - 116 U/L Normal No Dec 28 phosphata informati 2016 se on in 11:00 PM [Enzymati source c data activity/ volume] in Serum or Plasma Bilirubin 0.2 - 1.0 mg/dL Low No Dec 28 .total informati 2016 [Mass/vol on in 11:00 PM ume] in source Serum or data Plasma Urea 7 - 18 mg/dL Normal No Dec 28 nitrogen informati 2016 [Mass/vol on in 11:00 PM ume] in source Serum or data Plasma Calcium 8.5 - mg/dL Normal No Wilder 2 [Mass/vol 10.1 informati 2016 ume] in on in 11:00 PM Serum or source Plasma data Chloride 98 - 107 mmoL/L Normal No Dec 2 [Moles/vo informati 2016 lume] in on in 11:00 PM Serum or source Plasma data Carbon 21.0 - mmoL/L Normal No Dec 2 dioxide, 32.0 informati 2017 total on in 11:00 PM [Moles/vo source lume] in data Serum or Plasma Creatinin 0.55 - mg/dL Normal No Dec 2 e 1.02 informati 2017 [Mass/vol on in 11:00 PM ume] in source Serum or data Plasma Creatinin 50 - 200 ML/MIN Normal No Dec 28 e renal informati 2017 clearance on in 11:00 PM source predicted data by Cockcroft -Gault formula Estimated 59- ML/MIN No REFERENCE Dec 28 informati RANGE: 2017 glomerula on in >60 11:00 PM r source ML/MIN/1. filtratio data 73 SQUARE n rate METERSIf (GF this patient is -A merican, then multiply theresult by 1.210. Globulin 1.3 - 3.2 gm/dL High No Dec 28 [Mass/vol informati 2016 ume] in on in 11:00 PM Serum source data Glucose 74 - 106 mg/dL Normal No Dec 2 [Mass/vol informati 2016 ume] in on in 11:00 PM Serum or source Plasma data Potassium 3.5 - 5.1 mmoL/L Low No Dec 28 inform2016 [Moles/vo on in 11:00 PM lume] in source Serum or data Plasma Sodium 136 - 145 mmoL/L Low No Dec 2 [Moles/vo informati 2017 lume] in on in 11:00 PM Serum or source Plasma data Aspartate 15 - 37 U/L Normal No Dec 28 informati 2016 aminotran on in 11:00 PM sferase source [Enzymati data c activity/ volume] in Serum or Plasma Alanine 12 - 78 U/L Normal No Dec 28 aminotran informati 2016 sferase on in 11:00 PM [Enzymati source c data activity/ volume] in Serum or Plasma Protein 6.4 - 8.2 gm/dL Normal No Dec 2 [Mass/vol informati 2017 [...] No Dec 28 [Mass/vol informati informati informati 2017 ume] in on in on in on [...] Appeara SL CLEAR No No No Dec 2 nce of CLOUDY informa informa informa 2016 [...] No Dec 28 [Mass/vol informati informati informati 2017 ume] in on in on in on [...] No No Dec 28 [Mass/vol informati informati 2017 ume] in on in on in 11:00 PM Urine by source source Automated data data test strip Specific 1.005 - No Normal No Dec 28 gravity 1.030 informati informati 2016 of Urine on in on in 11:00 PM source source data data Epithel 20-50 0 - 5 #/hpf No No Dec 28 ial informa inform2016 cells.s tion in tion in 11:00 quamous [...] 0.1 - 2.0 % Normal No Dec 28 /100 inform2016 leukocyte on in 11:00 PM s in source Blood by data Automated count Eosinophi 0.0 - 0.4 K/mm3 Normal No Dec 28 ls 2016 [#/volume on in 11:00 PM ] in source Blood by data Automated count Eosinophi 0.1 - % Normal No Dec 28 ls/100 12.0 2016 leukocyte on in 11:00 PM s in source Blood by data Automated count Granulocy 1.8 - 7.8 K/mm3 Normal No Dec 28 pattie 2016 [#/volume on in 11:00 PM ] in source Blood by data Automated count Granulocy 37.0 - % Normal No Dec 28 pattie/100 80.0 ati 2016 leukocyte on in 11:00 PM s in source Blood by data Automated count Hematocri 37.0 - % Low No Dec 28 t [Volume 47.0 ati 2016 on in 11:00 PM Fraction] source of Blood data Hemoglobi 12.2 - g/dL Low No Dec 28 n 16.2 2016 [Mass/vol on in 11:00 PM ume] in source Blood data Lymphocyt 0.7 - 4.5 K/mm3 Normal No Dec 28 es 2016 [#/volume on in 11:00 PM ] in source Unspecifi data ed specimen by Automated count Lymphocyt 10 - 50.0 % Normal No Dec 28 es inform2016 [#/volume on in 11:00 PM ] in [...] Normal No Dec 28 te mean 97.8 2016 corpuscul on in 11:00 PM ar volume source [Entitic data volume] by Automated count Monocytes 0.1 - 1.0 K/mm3 Normal No Dec 28 inform2016 [#/volume on in 11:00 PM ] in source Blood by data Automated count Monocytes 1.7 - 9.3 % Normal No Dec 28 /100 2016 leukocyte on in 11:00 PM s in source Blood by data Automated count Platelet 7.4 - fl Normal No Dec 28 mean 10.4 inform2016 volume on in 11:00 PM [Entitic source volume] data in Blood by Automated count Platelets 142 - 424 K/mm3 Normal No Dec 282016 [#/volume on in 11:00 PM ] in source Blood data Erythrocy 4.2 - 5.4 M/mm3 Low No Dec 28 pattie inform2016 [#/volume on in 11:00 PM ] in source Amniotic data fluid Erythrocy 11.5 - % Normal No Dec 28 te 17.5 ati 2016 distribut on in 11:00 PM ion width source [Entitic data volume] by Automated count Leukocyte 4.8 - K/MM3 High No Dec 28 s 10.8 ati 2016 [#/volume on in 11:00 PM ] in source Blood data CHLAMYDIA AND GONORRHEA TESTING Observa Value Referen Units Interpr Notes Date tion ce etation Range COLLECT NA No No No No Dec 08 OR informa informa informa informa 2011 tion in tion in tion in tion [...] MINATEU NSATISF ACTORY RESULT= INVALID EFFECTI VE MARIANABE R 2009: THE APTIMA COMBO 2 NUCLEIC [...]
--- OUTSIDE RECORDS SUMMARY | 2017-05-12 03:09 | External Medical Summary Rpt ---
Author Author MICHAEL Connell, [facility] [employer] Organization [facility] [employer] Address Unknown Phone Unavailable Results Eholm-6-Mulhejctmnain.placental [Presence] in Vaginal fluid Observa Value Referen [...] AM Urine data data by Test strip Sycqv-2-Rsbhwcivvzoml.placental [Presence] in Vaginal fluid Observa Value Referen [...] Notes Date tion ce etation Range Choriog 20412.4 No mIU/ML No NON-PRE Dec 28 onadotr [...]
[2017-05-12 06:14] VITALS: BP 122/72
[2017-05-12 06:18] LABS: LYMPH # 2.4 K/mm3 (0.7-4.5); LYMPH % 24.7 % (10-50.0)
[2017-05-12 06:20] LABS: HEMOGLOBIN 9.9 g/dL (12.2-16.2)
[2017-05-12 06:40] LABS: ABO BLOOD TYPE A; RH BLOOD TYPE POSITIVE
--- NOTE | 2017-05-12 08:20 | LABOR NOTE ---
Laboring Subjective Subjective Date 05/12/17 Time 0725 Subjective: Pt is having irregular contractions Laboring Objective Objective NST: Reactive Contractions: infrequent Cervical dilation: 2-3 Effacement: 75% Station: -2 Membranes are: Artificially ruptured Fetus monitoring? Yes Type: External Laboring Assessment Assessment Progressing? No Cephalopelvic disproportion? No Problem List: 1. Oligohydramnios in third trimester Laboring Plan Plan Anethesia for epidural? No Continue to labor down? Yes Plan for ? No at 0820
[2017-05-12 08:49] VITALS: BP 122/78
--- NOTE | 2017-05-12 10:09 | LABOR NOTE ---
Laboring Subjective Subjective Date 05/12/17 Time 1008 Subjective: Pt is having regular contractions Laboring Objective Objective NST: Reactive Contractions: q 2-3 minutes Cervical dilation: 4 Effacement: 75% Station: -2 Membranes are: Artificially ruptured Fetus monitoring? Yes Type: External Laboring Assessment Assessment Progressing? Yes Cephalopelvic disproportion? No Problem List: 1. Oligohydramnios in third trimester Laboring Plan Plan Anethesia for epidural? Yes Continue to labor down? Yes Plan for ? No Continue to monitor? Yes Start pushing? No at 1009
--- NOTE | 2017-05-12 12:25 | Delivery Note ---
Delivery note Delivery date: 05/12/17 Delivery time: 1207 Anesthesia: Epidural, Boris Askew Was labor medically induced? Yes Method for inducing labor: Oxytocin Gestational age in weeks: 37 weeks Days: 1 day Delivery prior to 39 weeks? Yes Justification for delivery: Oligohydraminos Sex: female score at one minute: 8 at 5 minutes: 9 Type of suction: bulb AF: Clear fluid LAC or MLE: LAC (none) Delivery procedure: Normal Delivery Delivery of placenta: spontaneous Clinical note She is a 26-year-old 2 para 1 who was 37 weeks gestational age. She's been followed for the last few weeks with oligohydramnios. She was 37 weeks yesterday and at the time of ultrasound it was noted that there was marked oligohydramnios with an amniotic fluids of 4.1. As result that she was offered induction of labor. She has had steroids for labor earlier in the . She was started on IV oxytocin had her membranes ruptured. Under labor epidural she progressed to full dilation and delivered spontaneously a liveborn female child at 12:07 PM in the afternoon of May 12, 2017. On delivery the head the anterior shoulder then delivered followed by the rest of the 's body atraumatically. The oropharynx and nasopharynx were bulb suctioned. The baby cried spontaneously. The cord was allowed to pulsate for approximately 1 minute. We then doubly clamped and cut the cord. The baby was then placed on the mother's abdomen for further care. The nurses assigned Apgars of 8 at 1 minute and 9 at 5 minutes. We then obtained cord blood as well as cord pH. Using gentle traction on the cord and countertraction on the fundus I was able to easily deliver the placenta intact. It had a normal three-vessel cord. There were no perineal or vaginal lacerations. She has a positive blood and was group B streptococcus negative. 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 She plans to bottlefeed. Her estimated blood loss was approximately 400 mL. at [id number]
[2017-05-12 21:58] VITALS: BP 127/60
[2017-05-13 05:36] LABS: HBsAg Screen Negative (Negative); Rubella Antibodies, IgG 1.22 index (Immune >0.99)
[2017-05-13 07:21] LABS: HEMOGLOBIN 10.4 g/dL (12.2-16.2)
--- NOTE | 2017-05-13 08:37 | Discharge Summary ---
Discharge Summary Admission date: 05/12/17 Discharge date: 05/13/17 Discharge diagnoses: Term , oligohydramnios. Clinical note: She is a 26-year-old 3 para 1 aborta 1 who was 37 weeks gestational age. She's been followed for oligohydramnios over the last few weeks. When she was seen in my office the day prior to admission her amniotic fluid index was only 4.1. Since she was 37 weeks we elected to deliver her. Course in hospital: On the morning of May 12 she was started on IV oxytocin and had her membranes ruptured. Under labor epidural she progressed to full dilation and delivered spontaneously a liveborn female child at 12:07 PM. The baby weighed 5 lbs. 14 oz. and was 17-1/2 inches long. She had Apgars of 8 at 1 minute and 9 at 5 minutes. She has done well and has remained afebrile third hospitalization. She is eating and drinking and ambulating. She is bottlefeeding. Her lochia is normal. She has a positive blood and she was group B streptococcus negative. Her clinical informatics spec is Dr. Hernandez. Laboratory Tests 05/12/17 0520: WBC 9.8, RBC 3.65, MCV 84.2, RDW 13.3, Plt Count 281, MPV 8.7, Gran % 67.8, Gran # 6.7, Lymphocytes % 24.7, Monocytes % 6.7, Eosinophils % 0.5, Basophils % 0.2, Lymphocytes # 2.4, Monocytes # 0.7, Eosinophils # 0.1, Basophils # 0.0, PUBS MCHC 32.2, Antibody Screen NEGATIVE, Miscellaneous Test POSITIVE 05/12/17 0520: MCH 27.1 05/12/17 1210: Cord Blood pH 7.34 05/13/17 0640: Hgb 10.4, Hct 32.3 Plans for ongoing care: She is discharged home today to follow-up with me in approximately 2 weeks' time. Discharge medications She will continue with her vitamins and iron. She will take over-the- counter analgesics for pain. DC/follow-up instructions She was given the usual instructions with respect to limiting her activity, driving and sexual activity. Condition at discharge Stable and improved at 0836
[2017-05-13 08:45] LABS: Rapid Plasma Reagin, Quant Non Reactive (NonRea<1:1)
[2017-05-13 08:55] VITALS: BP 116/65
== END 2017-05-13 16:10 | disposition home or self-care (01) | DRG 775 ==
LOC: OB 03:00
PROVIDERS: Nurse Practitioner Obstetrics & Gynecology
PROC: 10E0XZZ Delivery of Products of Conception, External Approach (ICD-10-PCS; principal; 2017-05-12)
DX: O41.03X0 Oligohydramnios, third trimester, not applicable or unspecified (principal); Z37.0 Single live birth; Z3A.37 37 weeks gestation of pregnancy
CPT/HCPCS: J2405